=== PATIENT | female | born 1945 | race African-American/Black ===

== ENCOUNTER 2017-10-23 23:54 | Inpatient (IN) | payer MEDICARE, OTHER ==
[~2017-10-23] VITALS: Ht 160 cm; Wt 95.0 kg
[2017-10-24] VITALS (12 sets, daily range): BP systolic 85–150; BP diastolic 50–81
--- OUTSIDE RECORDS SUMMARY | 2017-10-24 00:34 | XMS REPORT ---
Author Author MYRON Ramsay Organization [facility] Address [address] [place] [address] Care Team Providers Care Mounter Name Role Phone MYRON Ramsay Unavailable PROBLEMS Unknown Problems ALLERGIES No Known Allergies ENCOUNTERS Encounter Location Date Diagnosis [place] [facility] [address] [facility] [id number] [id number] Mar, Nasal congestion R09.81 [place] [facility] [address] [facility] [id number] [place], [place] [id number] Jan, Screening for tuberculosis Z11.1 IMMUNIZATIONS Vaccine Route Administration Date Status DEPO MEDROL 80 MG/ML IM Intramuscular Apr 01, 2017 Administered SOCIAL HISTORY Never Assessed REASON FOR VISIT sinus issues PLAN OF CARE Activity Details Follow Up prn Reason: VITAL SIGNS Height 63 in 2017-04-01 Weight 196 lbs 2017-04-01 Temperature 97.9 degrees Fahrenheit 2017-04-01 Heart Rate 115 bpm 2017-04-01 Respiratory Rate 18 2017-04-01 BMI 34.72 kg/m2 2017-04-01 Blood pressure systolic 123 mmHg 2017-04-01 Blood pressure diastolic 61 mmHg 2017-04-01 MEDICATIONS Medication Instructions Dosage Frequency Start Date End Date Duration Status Trental Active Allopurinol Active RESULTS No Results PROCEDURES Procedure Date Ordered Result Body Site DEPO MEDROL 80 MG/ML Apr 01, 2017 THER/PROPH/DIAG INJ, SC/IM Apr 01, 2017 [facility] VISIT ESTABLISHED PATIENT Apr 01, 2017 INSTRUCTIONS MEDICATIONS ADMINISTERED No Known Medications
--- OUTSIDE RECORDS SUMMARY | 2017-10-24 00:34 | XMS REPORT ---
Author Author MYRON GRIFFIN Organization [facility] Address [address] [place] [address] Care Team Providers Care Cigarette Catcher Name Role Phone MYRON GRIFFIN Unavailable PROBLEMS Unknown Problems ALLERGIES No Information ENCOUNTERS Encounter Location Date Diagnosis [facility] [address] [facility] [id number] [phone] Mar, Nasal congestion R09.81 [facility] [address] [facility] [id number] [place], [place] [phone] Jan, Screening for tuberculosis Z11.1 IMMUNIZATIONS No Known Immunizations SOCIAL HISTORY Never Assessed REASON FOR VISIT TB skin test-[facility] PLAN OF CARE VITAL SIGNS MEDICATIONS No Known Medications RESULTS No Results PROCEDURES Procedure Date Ordered Result Body Site LAB NOT BILLED BY [facility] Jan 14, 2017 INSTRUCTIONS MEDICATIONS ADMINISTERED No Known Medications
[2017-10-24] MEDS ORDERED: ACETAMINOPHEN 500 MG TAB (TYLENOL) ONE (00:48)
[2017-10-24] MEDS ORDERED: NS IV 1000 ML 1,000 ML ONE (00:48)
[2017-10-24] MEDS ORDERED: ACETAMINOPHEN 500 MG TAB (TYLENOL) PO PRN ×2 (01:30→04:30)
[2017-10-24] MEDS ORDERED: cefTRIAXone FOR IV USE 1,000 MG in NS (IVPB) 50 ML IV ONE (01:30)
[2017-10-24] MEDS ORDERED: NS IV 1000 ML 2,000 ML IV ONE (01:30)
--- NOTE | 2017-10-24 01:33 | ED General ---
General Stated Complaint: COUGH, POSS UTI,FEVER Source of Information: Patient, Family Exam Limitations: No Limitations History of Present Illness Date Seen by Provider: Oct 24, 2017 Time Seen by Provider: 01:00 Initial Comments The patient presents to the ER by private conveyance with chief complaint she's been having since Tuesday, 2 days ago some tiredness weakness fatigue cough fevers subjectively chills and dark urine with dysuria. She says she's never had to be hospitalized before. She is not having any belly or chest pain. Little short of breath. She does not wear oxygen at baseline. She takes warfarin for history of atrial fibrillation. She was going to try and make it until tomorrow to see her doctor but her family was concerned about her and brought her out to the ER. She's been using Tylenol for her fever and chills but she has not had any today. She has spent most of her day in bed resting. Allergies and Home Medications Allergies Coded Allergies: No Known Drug Allergies (Unverified , 10/24/17) Patient Home Medication List Home Medication List Reviewed: Yes Review of Systems Review of Systems Constitutional: chills, diaphoresis, fever, malaise, weakness EENTM: No hearing loss, No ear pain Respiratory: cough; No phlegm; short of breath; No wheezing Cardiovascular: No chest pain, No edema, No Hx of Intervention, No palpitations , No syncope, No vascular heart diseas Gastrointestinal: No abdominal pain, No nausea, No vomiting Genitourinary: No discharge; dysuria : No Musculoskeletal: No back pain, No joint pain Skin: No pruritus, No rash Past Bnxlgum-Akdbwo-Qnvtrq Hx Patient Social History Alcohol Use: Denies Use Recreational Drug Use: No Smoking Status: Never a Smoker Recent Foreign Travel: No Contact w/Someone Who Travel: No Physical Exam-Suspected Sepsis Physical Exam Vital Signs Capillary Refill : Height, Weight, BMI Height: '" Weight: lbs. oz. kg; BMI Method: General Appearance: WD/WN, Mild Distress Eyes: Bilateral Eye Normal Inspection, Bilateral Eye PERRL, Bilateral Eye EOMI HEENT: PERRL/EOMI, Normal ENT Inspection, Pharynx Normal; No Moist Mucous Membranes (dry) Neck: Normal Inspection, Supple Respiratory: Chest Non Tender, Lungs Clear, Normal Breath Sounds, No Accessory Muscle Use, No Respiratory Distress Cardiovascular: Regular Rate, Rhythm, Normal Peripheral Pulses Gastrointestinal: Normal Bowel Sounds, Non Tender, Soft Extremity: Normal Capillary Refill, Normal Inspection, Normal Range of Motion, Non Tender, No Calf Tenderness, No Pedal Edema Neurologic/Psychiatric: Alert, Oriented x3, No Motor/Sensory Deficits, Normal Mood/Affect Skin: normal color, warm/dry Focused Exam Lactate Level 10/24/17 00:40: Lactic Acid Level 1.74 Lactic Acid Level Laboratory Tests Test 10/24/17 00:40 Lactic Acid Level 1.74 MMOL/L (0.50-2.00) Progress/Results/Core Measures Suspected Sepsis SIRS Temperature: Pulse: Respiratory Rate: Laboratory Tests 10/24/17 00:40: White Blood Count 23.4H Blood Pressure / Mean: 10/24/17 00:40: Lactic Acid Level 1.74 Laboratory Tests 10/24/17 00:40: Creatinine 1.87H, INR Comment 3.5H, Platelet Count 278, Total Bilirubin 1.6H Results/Orders Lab Results Laboratory Tests Test 10/24/17 00:40 Range/Units White Blood Count 23.4 H 4.3-11.0 10^3/uL Red Blood Count 4.82 4.35-5.85 10^6/uL Hemoglobin 13.7 11.5-16.0 G/DL Hematocrit 42 35-52 % Mean Corpuscular Volume 86 80-99 FL Mean Corpuscular Hemoglobin 28 25-34 PG Mean Corpuscular Hemoglobin Concent 33 32-36 G/DL Red Cell Distribution Width 15.4 H 10.0-14.5 % Platelet Count 278 130-400 10^3/uL Mean Platelet Volume 12.2 H 7.4-10.4 FL Neutrophils (%) (Auto) 77 H 42-75 % Lymphocytes (%) (Auto) 8 L 12-44 % Monocytes (%) (Auto) 14 H 0-12 % Eosinophils (%) (Auto) 1 0-10 % Basophils (%) (Auto) 0 0-10 % Neutrophils # (Auto) 18.1 H 1.8-7.8 X 10^3 Lymphocytes # (Auto) 1.8 1.0-4.0 X 10^3 Monocytes # (Auto) 3.4 H 0.0-1.0 X 10^3 Eosinophils # (Auto) 0.1 0.0-0.3 10^3/uL Basophils # (Auto) 0.1 0.0-0.1 10^3/uL Neutrophils % (Manual) 56 % Lymphocytes % (Manual) 16 % Monocytes % (Manual) 7 % Band Neutrophils 21 % Toxic Granulation 1+ Blood Morphology Comment NORMAL Prothrombin Time 35.1 H 12.2-14.7 SEC INR Comment 3.5 H 0.8-1.4 Activated Partial Thromboplast Time 50 H 24-35 SEC Urine Color YELLOW Urine Clarity VERY CLOUDY H Urine pH 5 5-9 Urine Specific Victoria 1.020 1.016-1.022 Urine Protein 2+ H NEGATIVE Urine Glucose (UA) NEGATIVE NEGATIVE Urine Ketones 1+ H NEGATIVE Urine Nitrite NEGATIVE NEGATIVE Urine Bilirubin 2+ H NEGATIVE Urine Urobilinogen 12 H NORMAL MG/DL Urine Leukocyte Esterase 3+ H NEGATIVE Urine RBC (Auto) 1+ H NEGATIVE Urine RBC NONE /HPF Urine WBC 2-5 /HPF Urine Squamous Epithelial Cells 5-10 /HPF Urine Crystals PRESENT H /LPF Urine Amorphous Sediment FEW LAURY URATES H /LPF Urine Bacteria MODERATE H /HPF Urine Casts NONE /LPF Urine Mucus MODERATE H /LPF Urine Culture Indicated NO Sodium Level 137 135-145 MMOL/L Potassium Level 3.4 L 3.6-5.0 MMOL/L Chloride Level 99 98-107 MMOL/L Carbon Dioxide Level 24 21-32 MMOL/L Anion Gap 14 5-14 MMOL/L Blood Urea Nitrogen 37 H 7-18 MG/DL Creatinine 1.87 H 0.60-1.30 MG/DL Estimat Glomerular Filtration Rate 32 BUN/Creatinine Ratio 20 Glucose Level 137 H 70-105 MG/DL Lactic Acid Level 1.74 0.50-2.00 MMOL/L Calcium Level 10.5 H 8.5-10.1 MG/DL Corrected Calcium 10.9 H 8.5-10.1 MG/DL Total Bilirubin 1.6 H 0.1-1.0 MG/DL Aspartate Amino Transf (AST/SGOT) 24 5-34 U/L Alanine Aminotransferase (ALT/SGPT) 18 0-55 U/L Alkaline Phosphatase 132 40-136 U/L Total Protein 8.8 H 6.4-8.2 GM/DL Albumin 3.5 3.2-4.5 GM/DL My Orders Orders - DANNY,HERMAN J Ns Iv 1000 Ml (Sodium Chloride 0.9%) (10/24/17 00:48) Acetaminophen Tablet (Tylenol Tablet) (10/24/17 00:48) Cbc With Automated Diff (10/24/1723) Comprehensive Metabolic Panel (10/24/17) Blood Culture (10/24/17:23) Sputum Culture (10/24/17:23) Urinalysis (10/24/17) Urine Culture (10/24/17) Protime With Inr (10/24/17) Partial Thromboplastin Time (10/24/17:23) Acetaminophen Tablet (Tylenol Tablet) (10/24/17 01:30) Saline Lock/Iv-Start (10/24/17) Saline Lock/Iv-Start (10/24/1723) Ekg Tracing (10/24/17) Vital Signs Adult Sepsis Patie Q15M (10/24/17:23) O2 (10/24/17:23) Remove Rings In Anticipation O (10/24/17:) Lactic Acid Analyzer (10/24/17:23) Ns Iv 1000 Ml (Sodium Chloride 0.9%) (10/24/17 01:30) Ceftriaxone For Iv Use (Rocephin For I (10/24/17 01:30) Manual Differential (10/24/17 00:40) Chest Pa/Lat (2 View) (10/24/17 02:04) Medications Given in ED Current Medications Medications Dose Ordered Sig/Sarbjit Route Start Time Stop Time Status Last Admin Dose Admin Acetaminophen 1,000 mg ONCE PRN PO 10/24/17 01:30 10/24/17 01:57 DC 10/24/17 00:45 1,000 MG Ceftriaxone Sodium 1000 mg/ Sodium Chloride 60 ml @ 100 mls/hr ONCE ONCE IV 10/24/17 01:30 10/24/17 02:05 DC 10/24/17 02:00 100 MLS/HR Sodium Chloride 2,000 ml @ 2,000 mls/hr ONCE ONCE IV 10/24/17 01:30 10/24/17 02:29 DC 10/24/17 00:45 2,000 MLS/HR Vital Signs/I&O Capillary Refill : Progress Note : Time: 01:32 Progress Note Sepsis workup with Rocephin and 2 L normal saline. We'll give her Tylenol for her fever. We'll get a 2 view chest x-ray several 1 view. ECG Initial ECG Impression Date: Oct 24, 2017 Initial ECG Impression Time: 00:48 Initial ECG Rate: 130 Initial ECG Rhythm: S.Tach Initial ECG Intervals: Normal Initial ECG Impression: Normal, Nonspecific Changes Initial ECG Comparisson: No Previous ECG Available Comment No ST elevation or depression. Sinus tachycardia. Diagnostic Imaging Diagonstic Imaging: Xray Plain Films/CT/US/NM/MRI: chest (2v) Comments Right middle lobe infiltrate seen. Reviewed: Reviewed by Me Departure Communication (Admissions) Time/Spoke to Admitting Phy: 03:00 Discussed case lab imaging findings with Dr. Wilson and she agrees see the patient. She agrees with Rocephin and azithromycin. Impression Primary Impression: Pneumonia Qualified Codes: J18.9 - Pneumonia, unspecified organism Additional Impressions: Sepsis Qualified Codes: A41.9 - Sepsis, unspecified organism Supratherapeutic INR VERN (acute kidney injury) Disposition: 09 ADMITTED INPATIENT Condition: Stable Admissions Decision to Admit Reason: Admit from ER (General) Decision to Admit/Date: Oct 24, 2017 Time/Decision to Admit Time: 02:51 Departure-Patient Inst. Referrals: SHARON JEAN MD (PCP/Family) Primary Care Physician Copy Copies To 1: SHARON JEAN MD, TITUS J Oct 24, 2017 01:33
[2017-10-24 01:34] LABS: BASOPHILS # (AUTO) 0.1 10^3/uL (0.0-0.1); BASOPHILS % (AUTO) 0 % (0-10); EOSINOPHILS # (AUTO) 0.1 10^3/uL (0.0-0.3); EOSINOPHILS % (AUTO) 1 % (0-10); HEMATOCRIT 42 % (35-52); HEMOGLOBIN 13.7 G/DL (11.5-16.0); LYMPHOCYTES # (AUTO) 1.8 X 10^3 (1.0-4.0); LYMPHOCYTES % (AUTO) 8 % (12-44); MEAN CORPUSCULAR HEMOGLOBIN 28 PG (25-34); MEAN CORPUSCULAR HGB CONC 33 G/DL (32-36); MEAN CORPUSCULAR VOLUME 86 FL (80-99); MEAN PLATELET VOLUME 12.2 FL (7.4-10.4); MONOCYTES # (AUTO) 3.4 X 10^3 (0.0-1.0); MONOCYTES % (AUTO) 14 % (0-12); NEUTROPHILS # (AUTO) 18.1 X 10^3 (1.8-7.8); NEUTROPHILS % (AUTO) 77 % (42-75); PLATELET COUNT 278 10^3/uL (130-400); RED BLOOD COUNT 4.82 10^6/uL (4.35-5.85); RED CELL DISTRIBUTION WIDTH 15.4 % (10.0-14.5); WHITE BLOOD COUNT 23.4 10^3/uL (4.3-11.0)
[2017-10-24 01:36] LABS: CLARITY,URINE VERY CLOUDY; COLOR,URINE YELLOW; GLUCOSE, URINE (UA) NEGATIVE (NEGATIVE); KETONES,URINE 1+ (NEGATIVE); LEUKOCYTE ESTERASE ,URINE 3+ (NEGATIVE); NITRITE,URINE NEGATIVE (NEGATIVE); PH,URINE 5 (5-9); PROTEIN,URINE 2+ (NEGATIVE); UROBILINOGEN,URINE 12 MG/DL (NORMAL)
[2017-10-24 01:42] LABS: INR 3.5 (0.8-1.4); PROTHROMBIN TIME PATIENT 35.1 SEC (12.2-14.7)
[2017-10-24 01:45] LABS: ALBUMIN 3.5 GM/DL (3.2-4.5); BILIRUBIN,TOTAL 1.6 MG/DL (0.1-1.0); CALCIUM 10.5 MG/DL (8.5-10.1); CREATININE SERUM 1.87 MG/DL (0.60-1.30); POTASSIUM 3.4 MMOL/L (3.6-5.0); TOTAL PROTEIN 8.8 GM/DL (6.4-8.2)
[2017-10-24 01:57] LABS: AMORPHOUS SEDIMENT,UR FEW AMOR URATES /LPF; BACTERIA,URINE MODERATE /HPF; BILIRUBIN,URINE 2+ (NEGATIVE)
[2017-10-24 02:03] LABS: BAND NEUTROPHILS 21 %; LYMPHOCYTES % (MANUAL) 16 %; MONOCYTES % (MANUAL) 7 %; NEUTROPHILS % (MANUAL) 56 %; RBC MORPH NORMAL; TOXIC GRANULATION/VACUOLAZATIO 1+
[2017-10-24] MEDS ORDERED: NS W/KCL 40 MEQ/L 1,000 ML IV ONE (04:03)
[2017-10-24] MEDS ORDERED: AZITHROMYCIN 500 MG/NS 250 ML IVPB IV ONE ×2 (04:30)
[2017-10-24] MEDS ORDERED: CATHETER FLUSH 10 ML SYR IV PRN (04:30)
[2017-10-24] MEDS ORDERED: ONDANSETRON 4 MG/2 ML (SDV) Z0FRAN IV PRN (04:30)
[2017-10-24] MEDS: NS W/KCL 40 MEQ/L 1,000 ML IV SCH ×3 (04:41→10:29)
[2017-10-24] MEDS: CATHETER FLUSH 10 ML SYR IV SCH ×3 (04:43→19:26)
--- NOTE | 2017-10-24 07:13 | Diagnostic Imaging Report ---
Clinical indication: Patient with cough and congestion. Exam: Chest x-ray PA and lateral views. Comparisons: None. Findings: Lungs/pleura: There is patchy areas of infiltrate seen throughout both lungs with the right upper lung field affected the most. There is also lung infiltrate in the left lung base region. There is no pneumothorax. There is no pleural effusion. Mediastinum: Unremarkable. Pulmonary vasculature: Unremarkable. Heart: Unremarkable. Bones/extrathoracic soft tissue: There are hypertrophic spurs involving the thoracic spine. Impression: Concern for bilateral lung infiltrate/pneumonia (right side more than the left). Superimposed/background lung scarring can't be completely excluded. Follow up chest x-ray in 2 - 4 weeks is suggested to evaluate for interval resolution of this finding. Dictated by: Dictated on workstation # [id number]
[2017-10-24] MEDS ORDERED: AMIL1TAB PO (07:31)
[2017-10-24] MEDS ORDERED: ALLO100T PO (07:31)
[2017-10-24] MEDS ORDERED: PENT400T9 PO ×2 (07:31→11:32)
[2017-10-24] MEDS ORDERED: WARF6TAB49 PO (07:31)
--- NOTE | 2017-10-24 09:45 | Progress Note-Hospitalist ---
Subjective HPI/CC On Admission Date Seen by Provider: Oct 24, 2017 Time Seen by Provider: 09:38 Subjective/Events-last exam Pt is a 72yoCF with a PMH of HTN and PE on chronic anticoagulation who presented to the ER with CC of fever, chills, and feeling poorly. She states her symptoms started the evening of 10/20. 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 During that game she started to feel worse so left very quickly and was in bed most of the next two days with poor appetite, fever, and fatigue. She also noticed that her urine was off color. She continued to feel worse so her brother prompted her to seek evaluation in the ER. She was found to have bilateral pneumonia and meet sepsis criteria so was admitted for IV abx. Focused Exam Lactate Level 10/24/17 00:40: Lactic Acid Level 1.74 Objective Exam Vital Signs Vital Signs Date Time Temp Pulse Resp B/P (MAP) Pulse Ox O2 Delivery O2 Flow Rate FiO2 10/24/17 08:00 96.8 111 22 119/64 (82) 97 Nasal Cannula 4.00 10/24/17 04:20 28 Capillary Refill : Less Than 3 Seconds General Appearance: No Apparent Distress, WD/WN Respiratory: Lungs Clear, No Respiratory Distress Cardiovascular: Regular Rate, Rhythm, No Murmur Gastrointestinal: Normal Bowel Sounds, Non Tender, Soft Neurologic/Psychiatric: Alert, Oriented x3 Results/Procedures Lab Laboratory Tests 10/24/17 00:40 Patient resulted labs reviewed. Assessment/Plan Assessment and Plan Assess & Plan/Chief Complaint Sepsis Diagnosis/Problems Diagnosis/Problems (1) Sepsis Status: Acute Assessment & Plan: Bilateral pneumonia Continue on CAP coverage Titrate oxygen to keep sats >90% Cultures pending Qualifiers: Sepsis type: sepsis due to unspecified organism Qualified Codes: A41.9 - Sepsis, unspecified organism (2) Pneumonia Status: Acute Assessment & Plan: Antitbiotics as above CURB 65 score of 3 Qualifiers: Pneumonia type: due to unspecified organism Laterality: unspecified laterality Lung location: unspecified part of lung Qualified Codes: J18.9 - Pneumonia, unspecified organism (3) VERN (acute kidney injury) Status: Acute Assessment & Plan: Unsure of baseline Continue IVF (4) Supratherapeutic INR Status: Acute Assessment & Plan: On for history of PE Slightly above goal Hold home warfarin today Recheck INR in am (5) Essential (primary) hypertension Assessment & Plan: Hold home meds as BP well controlled Clinical Quality Measures DVT/VTE Risk/Contraindication: Risk Factor Score Per Nursin RFS Level Per Nursing on Admit: 4+=Very High TABITHA FLORES MD Oct 24, 2017 9:45 am
--- NOTE | 2017-10-24 09:51 | History & Physical-Hospitalist ---
History of Present Illness HPI/Chief Complaint Pt is a 72yoCF with a PMH of HTN and PE on chronic anticoagulation who presented to the ER with CC of fever, chills, and feeling poorly. She states her symptoms started the evening of 10/20. 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 During that game she started to feel worse so left very quickly and was in bed most of the next two days with poor appetite, fever, and fatigue. She also noticed that her urine was off color. She continued to feel worse so her brother prompted her to seek evaluation in the ER. She was found to have bilateral pneumonia and meet sepsis criteria so was admitted for IV abx. Source: patient Date Seen 10/24/17 Time Seen by Provider: 09:50 Attending Physician Eulalia Wilson MD PCP Ian Davalos MD Referring Physician Date of Admission Oct 24, 2017 at 3:30 am Home Medications & Allergies Home Medications Reviewed patient Home Medication Reconciliation performed by pharmacy medication reconciliations oil bay technician and/or nursing. Patients Allergies have been reviewed. Allergies Allergies Coded Allergies aspirin (Verified Adverse Reaction, Unknown, 10/24/17) States won't take it as is on warfarin Past Myyzeho-Rzeacu-Kofelm Hx Past Med/Social Hx: Reviewed Nursing Past Med/Soc Hx Patient Social History Alcohol Use: Denies Use Recreational Drug Use: No Smoking Status: Never a Smoker Physical Abuse Screen: No Sexual Abuse: No Recent Foreign Travel: No Contact w/other who traveled: No Recent Hopitalizations: No Recent Infectious Disease Expo: No Seasonal Allergies Seasonal Allergies: Yes Past Medical History Genitourinary: UTI-Chronic Gastrointestinal: Abdominal Hernia Musculoskeletal: Gout History of Blood Disorders: Yes (Anemia after hysterectomy) Adverse Reaction to Blood Pérez: No Family History Asthma 19 MOTHER Dementia 19 MOTHER Diabetes mellitus 19 MOTHER G8 BROTHER FH: bladder cancer 19 MOTHER FH: prostate cancer G8 BROTHER FH: stroke 19 MOTHER Glaucoma 19 MOTHER Hypertension 19 MOTHER G8 BROTHER Kidney disease G8 BROTHER Myocardial infarction 19 MOTHER G8 BROTHER Review of Systems Constitutional: chills, diaphoresis, fever, malaise EENTM: no symptoms reported Respiratory: see HPI, cough, short of breath Cardiovascular: no symptoms reported Gastrointestinal: no symptoms reported Genitourinary: see HPI; No dysuria Musculoskeletal: no symptoms reported Skin: no symptoms reported Psychiatric/Neurological: No Symptoms Reported Physical Exam Physical Exam Vital Signs Vital Signs - First Documented 10/24/17 10/24/17 10/24/17 00:30 00:35 04:20 Temp 100.0 Pulse 132 Resp 30 B/P (MAP) 123/93 (103) Pulse Ox 88 O2 Delivery Room Air O2 Flow Rate 2.00 FiO2 28 Capillary Refill : Less Than 3 Seconds Height, Weight, BMI Height: 5'3.00" Weight: 209lbs. 8.0oz. 95.044395pg; 37.1 BMI Method:Stated General Appearance: No Apparent Distress, WD/WN HEENT: PERRL/EOMI, Moist Mucous Membranes Neck: Non Tender, Supple Respiratory: No Respiratory Distress, Wheezing Cardiovascular: Regular Rate, Rhythm, No Murmur Gastrointestinal: Normal Bowel Sounds, Non Tender, Soft Extremity: Normal Capillary Refill, No Calf Tenderness Neurologic/Psychiatric: Alert, Oriented x3, Normal Mood/Affect Skin: Normal Color, Warm/Dry Results Results/Procedures Labs Laboratory Tests 10/24/17 00:40 10/25/17 06:35 Patient resulted labs reviewed. Imaging: Reviewed Imaging Report Assessment/Plan Admission Diagnosis Sepsis and CAP Admission Status: Inpatient Order (span 2 midnights) Reason for Inpatient Admission: CURB 65 score of 3, needs IV antibiotics Assessment and Plan Sepsis Diagnosis/Problems Diagnosis/Problems (1) Sepsis Status: Acute Assessment & Plan: Bilateral pneumonia Continue on CAP coverage Titrate oxygen to keep sats >90% Cultures pending Qualifiers: Sepsis type: sepsis due to unspecified organism Qualified Codes: A41.9 - Sepsis, unspecified organism (2) Pneumonia Status: Acute Assessment & Plan: Antitbiotics as above CURB 65 score of 3 Qualifiers: Pneumonia type: due to unspecified organism Laterality: unspecified laterality Lung location: unspecified part of lung Qualified Codes: J18.9 - Pneumonia, unspecified organism (3) VERN (acute kidney injury) Status: Acute Assessment & Plan: Unsure of baseline Continue IVF (4) Supratherapeutic INR Status: Acute Assessment & Plan: On for history of PE Slightly above goal Hold home warfarin today Recheck INR in am (5) Essential (primary) hypertension Assessment & Plan: Hold home meds as BP well controlled Clinical Quality Measures DVT/VTE Risk/Contraindication: Risk Factor Score Per Nursin RFS Level Per Nursing on Admit: 4+=Very High TABITHA FLORES MD Oct 24, 2017 09:51
[2017-10-24] MEDS ORDERED: ACET-2267 PO (11:32)
[2017-10-24] MEDS ORDERED: CETI1TAB61 PO (11:32)
[2017-10-24] MEDS ORDERED: PSEUDOEPHEDRINE PO PRN (15:00)
[2017-10-24] MEDS ORDERED: [UNRECOGNIZED DRUG - OTHER] PO PRN (15:00)
[2017-10-24] MEDS ORDERED: CETIRIZINE HCL PO PRN (15:00)
[2017-10-24] MEDS: BENZONATATE 100 MG (TESSALON) CAPSULE PO PRN (15:11)
[2017-10-24] MEDS ORDERED: PSEUDOEPHEDRINE HCL 30 MG (SUDAFED) TAB PO PRN (15:30)
[2017-10-24] MEDS ORDERED: LORATADINE (CLARITIN) 10 MG TAB PO PRN ×2 (15:30→15:45)
[2017-10-24] MEDS ORDERED: NON-FORMULARY MEDICATION 1 EA EA (Warfarin Sodium 6 MG) PO SCH (18:00)
[2017-10-24] MEDS ORDERED: warFARin 3 MG (COUMADIN) TAB PO SCH (18:00)
[2017-10-24] MEDS: PENTOXIFYLLINE ER 400 MG (TRENtal) TAB PO SCH (19:25)
[2017-10-24] MEDS: RT-ALBUTEROL SULF 2.5 MG/3 ML PRE-MIX VIAL INH PRN (22:24)
[2017-10-25 00:30] VITALS: BP 114/65
[2017-10-25] MEDS: cefTRIAXone 1 GM/NS 50 ML IVPB IV SCH ×2 (02:10)
[2017-10-25] MEDS: NS W/KCL 40 MEQ/L 1,000 ML IV SCH ×2 (03:04→06:05)
[2017-10-25 04:00] VITALS: BP 135/80
[2017-10-25] MEDS: CATHETER FLUSH 10 ML SYR IV SCH ×3 (04:11→21:10)
[2017-10-25] MEDS: BENZONATATE 100 MG (TESSALON) CAPSULE PO PRN (06:03)
[2017-10-25 06:58] LABS: BASOPHILS # (AUTO) 0.1 10^3/uL (0.0-0.1); BASOPHILS % (AUTO) 1 % (0-10); EOSINOPHILS # (AUTO) 0.4 10^3/uL (0.0-0.3); EOSINOPHILS % (AUTO) 2 % (0-10); HEMATOCRIT 35 % (35-52); HEMOGLOBIN 11.7 G/DL (11.5-16.0); LYMPHOCYTES % (AUTO) 11 % (12-44); MEAN CORPUSCULAR HEMOGLOBIN 29 PG (25-34); MEAN CORPUSCULAR HGB CONC 33 G/DL (32-36); MEAN CORPUSCULAR VOLUME 87 FL (80-99); MONOCYTES # (AUTO) 1.8 X 10^3 (0.0-1.0); MONOCYTES % (AUTO) 10 % (0-12); NEUTROPHILS # (AUTO) 13.6 X 10^3 (1.8-7.8); NEUTROPHILS % (AUTO) 76 % (42-75); PLATELET COUNT 236 10^3/uL (130-400); RED BLOOD COUNT 4.05 10^6/uL (4.35-5.85); RED CELL DISTRIBUTION WIDTH 15.2 % (10.0-14.5)
[2017-10-25 07:19] LABS: BUN/CREATININE RATIO 25; CALCIUM 9.7 MG/DL (8.5-10.1); CARBON DIOXIDE 20 MMOL/L (21-32); CHLORIDE 111 MMOL/L (98-107); CREATININE SERUM 1.06 MG/DL (0.60-1.30); GFR ESTIMATED > 60; GLUCOSE 95 MG/DL (70-105); POTASSIUM 4.5 MMOL/L (3.6-5.0); SODIUM 140 MMOL/L (135-145)
[2017-10-25 08:00] VITALS: BP 140/78
[2017-10-25] MEDS: RT-ALBUTEROL SULF 2.5 MG/3 ML PRE-MIX VIAL INH PRN (08:05)
[2017-10-25] MEDS ORDERED: NON-FORMULARY MEDICATION 1 EA EA (Allopurinol 100 MG) PO SCH (09:00)
[2017-10-25] MEDS: AZITHROMYCIN 250 MG TAB (ZITHROMAX) PO SCH (09:24)
[2017-10-25] MEDS: PENTOXIFYLLINE ER 400 MG (TRENtal) TAB PO SCH ×2 (09:24→21:10)
[2017-10-25] MEDS: ALLOPURINOL 100 MG (ZYLOPRIM) TAB PO SCH (09:24)
--- NOTE | 2017-10-25 10:09 | Progress Note-Hospitalist ---
Subjective HPI/CC On Admission Date Seen by Provider: Oct 25, 2017 Time Seen by Provider: 09:00 Pt is a 72yoCF with a PMH of HTN and PE on chronic anticoagulation who presented to the ER with CC of fever, chills, and feeling poorly. She states her symptoms started the evening of 10/20. 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 During that game she started to feel worse so left very quickly and was in bed most of the next two days with poor appetite, fever, and fatigue. She also noticed that her urine was off color. She continued to feel worse so her brother prompted her to seek evaluation in the ER. She was found to have bilateral pneumonia and meet sepsis criteria so was admitted for IV abx. Subjective/Events-last exam Patient didn't sleep well secondary to coughing but actually feels little bit better today compared to yesterday. She denies night sweats chills fever or Reiger's. She reports little bit of right-sided chest pain when she coughs bringing up a scant amount of yellowish sputum especially after breathing treatments. She's had no shortness of breath at rest and denies any abdominal pain or change in bowel habit. She's had no melena. Focused Exam Lactate Level 10/24/17 00:40: Lactic Acid Level 1.74 Objective Exam Vital Signs Vital Signs Date Time Temp Pulse Resp B/P (MAP) Pulse Ox O2 Delivery O2 Flow Rate FiO2 10/25/17 08:06 99 Nasal Cannula 2.00 10/25/17 04:00 96.7 111 20 135/80 (98) 10/24/17 04:20 28 Capillary Refill : Less Than 3 Seconds General Appearance: No Apparent Distress, Obese Respiratory: Chest Non Tender, No Accessory Muscle Use, No Respiratory Distress , Other (No wheezing noted patient does have by basilar rales in the right upper lung field rales with fascicular breath sounds) Cardiovascular: No Edema, No Gallop, No Murmur, Irregularly Irregular Gastrointestinal: Normal Bowel Sounds, No Organomegaly, No Pulsatile Mass, Non Tender, Soft Extremity: Normal Capillary Refill, Normal Inspection, Normal Range of Motion, Non Tender, No Calf Tenderness, No Pedal Edema Results/Procedures Lab Laboratory Tests 10/25/17 06:35 Patient resulted labs reviewed. Imaging: Reviewed Imaging Report Assessment/Plan Assessment and Plan Assess & Plan/Chief Complaint 1. Bilateral community-acquired pneumonia. The patient is clinically improving with decreased white count remains afebrile. Due to frequent coughing will add Robitussin-DM on a when necessary basis to Tessalon and continue Rocephin and azithromycin. 2. Irregularly irregular rhythm no reports of atrial fibrillation in the past will need to fine emergency room EKG. If this does not document atrial fibrillation we'll repeat EKG. Patient started on anticoagulation due to past history of DVT and PE with an INR 3.5. We will hold Coumadin today and repeat her INR in the morning. 3. Hypertension currently blood pressures have been initially low normal last blood pressure 140/70 at this time will not resume diuretic therapy due to acute kidney injury but instead initiate diltiazem for rate control as current heart rate heparin only been in the 110-120 beat per minute range. When coughing settles down and the next day or 2 we'll obtain echocardiography. 4. Acute kidney injury secondary to infection with sepsis and secondary dehydration significantly improved creatinine down from the 1.8 range to around 1 she is prone to edema we'll DC IV fluids and her current bag runs and. Critical Care Critical Care: Critically Ill Patient Clinical Quality Measures DVT/VTE Risk/Contraindication: Risk Factor Score Per Nursin RFS Level Per Nursing on Admit: 4+=Very High SHARON JEAN MD Oct 25, 2017 10:08
[2017-10-25] MEDS ORDERED: DILTIAZEM 180 MG (CARDIZEM CD) CAP PO NR (10:15)
[2017-10-25] MEDS: guaiFENesin/DM (ROBITUSSIN DM) 10 ML UDC PO PRN (10:59)
[2017-10-25 12:00] VITALS: BP 133/80
[2017-10-25 15:57] VITALS: BP 142/84
[2017-10-25 19:29] VITALS: BP 153/84
[2017-10-26] VITALS: BP 126/72
[2017-10-26] MEDS: cefTRIAXone 1 GM/NS 50 ML IVPB IV SCH ×2 (01:33)
[2017-10-26] MEDS: guaiFENesin/DM (ROBITUSSIN DM) 10 ML UDC PO PRN ×4 (03:03→22:34)
[2017-10-26] MEDS: CATHETER FLUSH 10 ML SYR IV SCH ×3 (06:26→22:10)
[2017-10-26 08:03] LABS: PROTHROMBIN TIME PATIENT 46.1 SEC (12.2-14.7)
[2017-10-26 08:04] LABS: INR 4.9 (0.8-1.4)
[2017-10-26 08:23] VITALS: BP 124/67
[2017-10-26] MEDS: ALLOPURINOL 100 MG (ZYLOPRIM) TAB PO SCH (08:25)
[2017-10-26] MEDS: AZITHROMYCIN 250 MG TAB (ZITHROMAX) PO SCH (08:25)
[2017-10-26] MEDS: PENTOXIFYLLINE ER 400 MG (TRENtal) TAB PO SCH ×2 (08:25→20:43)
[2017-10-26] MEDS: DILTIAZEM 180 MG (CARDIZEM CD) CAP PO SCH (08:25)
--- NOTE | 2017-10-26 08:39 | Progress Note-Hospitalist ---
Subjective HPI/CC On Admission Date Seen by Provider: Oct 26, 2017 Time Seen by Provider: 08:00 Pt is a 72yoCF with a PMH of HTN and PE on chronic anticoagulation who presented to the ER with CC of fever, chills, and feeling poorly. She states her symptoms started the evening of 10/20. 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 During that game she started to feel worse so left very quickly and was in bed most of the next two days with poor appetite, fever, and fatigue. She also noticed that her urine was off color. She continued to feel worse so her brother prompted her to seek evaluation in the ER. She was found to have bilateral pneumonia and meet sepsis criteria so was admitted for IV abx. Subjective/Events-last exam Patient reports feeling better this morning. She slept well and feels that she has more energy. Cough is diminished she reports that Robitussin-DM is helping. She denies chest pain but still notes some wheezing. Cough she reports is productive of greenish sputum only no evidence for blood. Focused Exam Lactate Level 10/24/17 00:40: Lactic Acid Level 1.74 Objective Exam Vital Signs Vital Signs Date Time Temp Pulse Resp B/P (MAP) Pulse Ox O2 Delivery O2 Flow Rate FiO2 10/26/17 00:00 99.2 107 20 126/72 (90) 98 Nasal Cannula 2.00 10/24/17 04:20 28 Capillary Refill : Less Than 3 Seconds General Appearance: No Apparent Distress Respiratory: Chest Non Tender, No Accessory Muscle Use, No Respiratory Distress , Other (Mild expiratory wheezing throughout rales in the bases in the right upper lobe with fascicular breath sounds especially noted in the right upper lobe stable compared to yesterday.) Cardiovascular: Regular Rate, Rhythm, No Edema, No Gallop, No JVD, No Murmur, Normal Peripheral Pulses Gastrointestinal: Normal Bowel Sounds, No Organomegaly, No Pulsatile Mass, Non Tender, Soft Extremity: Normal Inspection, Normal Range of Motion, Non Tender, No Calf Tenderness, No Pedal Edema Results/Procedures Lab Patient resulted labs reviewed. Imaging: Reviewed Imaging Report Assessment/Plan Assessment and Plan Assess & Plan/Chief Complaint 1. Bilateral community-acquired pneumonia. The patient is clinically improving with decreased white count remains afebrile. One son comes oxygen we' ll have the patient ambulate. 2. Osmole atrial fibrillation yesterday has resolved heart rate is low or and rhythm is regular today. EKGs reviewed from emergency room reveals sinus tachycardia. 3. Hypertension pressures tending low or on diltiazem with regular rhythm. 4. Acute kidney injury secondary to infection with sepsis and secondary dehydration resolved. 5. Treated DVT possible paroxysmal fibrillation INR level IV.9 today despite holding Coumadin yesterday. We'll continue to hold Coumadin and have the patient consume several servings of greens today. Repeat INR in the morning. Critical Care Critical Care: Critically Ill Patient Clinical Quality Measures DVT/VTE Risk/Contraindication: Risk Factor Score Per Nursin RFS Level Per Nursing on Admit: 4+=Very High SHARON JEAN MD Oct 26, 2017 08:39
[2017-10-26] MEDS: RT-ALBUTEROL SULF 2.5 MG/3 ML PRE-MIX VIAL INH PRN (11:49)
[2017-10-26 16:05] VITALS: BP 134/68
[2017-10-26] MEDS ORDERED: RT-ALBUTEROL/IPRATROPIUM 3 ML (DUONEB) VIAL ONE (18:42)
[2017-10-27 00:30] VITALS: BP 139/75
[2017-10-27] MEDS: cefTRIAXone 1 GM/NS 50 ML IVPB IV SCH ×2 (01:46)
[2017-10-27] MEDS: CATHETER FLUSH 10 ML SYR IV SCH ×3 (06:21→19:19)
[2017-10-27] MEDS: RT-ALBUTEROL/IPRATROPIUM 3 ML (DUONEB) VIAL INH SCH ×4 (07:55→19:41)
[2017-10-27 08:00] VITALS: BP 124/70
--- NOTE | 2017-10-27 08:38 | Progress Note-Hospitalist ---
Subjective HPI/CC On Admission Date Seen by Provider: Oct 27, 2017 Time Seen by Provider: 08:00 Pt is a 72yoCF with a PMH of HTN and PE on chronic anticoagulation who presented to the ER with CC of fever, chills, and feeling poorly. She states her symptoms started the evening of 10/20. 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 During that game she started to feel worse so left very quickly and was in bed most of the next two days with poor appetite, fever, and fatigue. She also noticed that her urine was off color. She continued to feel worse so her brother prompted her to seek evaluation in the ER. She was found to have bilateral pneumonia and meet sepsis criteria so was admitted for IV abx. Subjective/Events-last exam Feeling beeter decreased cough and improved appetite with decreased sputem production. Objective Exam Vital Signs Vital Signs Date Time Temp Pulse Resp B/P (MAP) Pulse Ox O2 Delivery O2 Flow Rate FiO2 10/27/17 00:30 98.4 100 17 139/75 (96) 94 Nasal Cannula 2.00 10/26/17 15:51 28 Capillary Refill : Less Than 3 Seconds General Appearance: No Apparent Distress, Obese Respiratory: Chest Non Tender, No Accessory Muscle Use, No Respiratory Distress , Other (no wheezing with decreased congestion in bases and RUL) Results/Procedures Lab Patient resulted labs reviewed. Imaging: Reviewed Imaging Report Assessment/Plan Assessment and Plan Assess & Plan/Chief Complaint 1. Bilateral community-acquired pneumonia. The patient is clinically improving with decreased white count remains afebrile. ambulation encouraged . 2. Possible atrial fibrillation yesterday has resolved heart rate is regular today. EKGs reviewed from emergency room reveals sinus tachycardia. 3. Hypertension pressures tending low or on diltiazem with regular rhythm. 4. Acute kidney injury secondary to infection with sepsis and secondary dehydration resolved. 5. Treated DVT possible paroxysmal fibrillation INR level 4.9 today despite holding Coumadin yesterday. We'll continue to hold Coumadin and have the patient consume several servings of greens today. INR pending Critical Care Critical Care: Critically Ill Patient Clinical Quality Measures DVT/VTE Risk/Contraindication: Risk Factor Score Per Nursin RFS Level Per Nursing on Admit: 4+=Very High SHARON JEAN MD Oct 27, 2017 08:38
[2017-10-27] MEDS: guaiFENesin/DM (ROBITUSSIN DM) 10 ML UDC PO PRN ×3 (09:02→22:10)
[2017-10-27] MEDS: ALLOPURINOL 100 MG (ZYLOPRIM) TAB PO SCH (09:02)
[2017-10-27] MEDS: PENTOXIFYLLINE ER 400 MG (TRENtal) TAB PO SCH ×2 (09:02→19:18)
[2017-10-27] MEDS: AZITHROMYCIN 250 MG TAB (ZITHROMAX) PO SCH (09:02)
[2017-10-27] MEDS: DILTIAZEM 180 MG (CARDIZEM CD) CAP PO SCH (09:02)
[2017-10-27 09:07] LABS: INR 4.5 (0.8-1.4); PROTHROMBIN TIME PATIENT 43.1 SEC (12.2-14.7)
[2017-10-27 15:55] VITALS: BP 120/61
[2017-10-28 00:24] VITALS: BP 125/65
[2017-10-28] MEDS: cefTRIAXone 1 GM/NS 50 ML IVPB IV SCH ×2 (01:53)
[2017-10-28] MEDS: CATHETER FLUSH 10 ML SYR IV SCH ×2 (05:03→14:38)
[2017-10-28] MEDS: RT-ALBUTEROL/IPRATROPIUM 3 ML (DUONEB) VIAL INH SCH (06:36)
[2017-10-28 08:00] VITALS: BP 117/58
[2017-10-28] MEDS: PENTOXIFYLLINE ER 400 MG (TRENtal) TAB PO SCH ×2 (08:06→20:09)
[2017-10-28] MEDS: DILTIAZEM 180 MG (CARDIZEM CD) CAP PO SCH (08:06)
[2017-10-28] MEDS: ALLOPURINOL 100 MG (ZYLOPRIM) TAB PO SCH (08:06)
[2017-10-28] MEDS: AZITHROMYCIN 250 MG TAB (ZITHROMAX) PO SCH (08:06)
[2017-10-28] MEDS: guaiFENesin/DM (ROBITUSSIN DM) 10 ML UDC PO PRN (08:14)
[2017-10-28 09:13] LABS: INR 4.1 (0.8-1.4); PROTHROMBIN TIME PATIENT 40.1 SEC (12.2-14.7)
[2017-10-28] MEDS ORDERED: DILT180C90 PO (11:17)
--- NOTE | 2017-10-28 11:23 | Progress Note-Hospitalist ---
Subjective HPI/CC On Admission Date Seen by Provider: Oct 28, 2017 Time Seen by Provider: 11:19 Pt is a 72yoCF with a PMH of HTN and PE on chronic anticoagulation who presented to the ER with CC of fever, chills, and feeling poorly. She states her symptoms started the evening of 10/20. 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 During that game she started to feel worse so left very quickly and was in bed most of the next two days with poor appetite, fever, and fatigue. She also noticed that her urine was off color. She continued to feel worse so her brother prompted her to seek evaluation in the ER. She was found to have bilateral pneumonia and meet sepsis criteria so was admitted for IV abx. Subjective/Events-last exam Patient took a shower independently without difficulty. She reports decreased cough with clearing sputum per reduction and diminished and amounts. She's had no night sweats chills or fever. She reports her oxygen level did drop to 87 percent with walking without symptoms and she does feel as though her dyspnea on exertion is improving. She's had no palpitations or chest discomfort. She denies any lightheadedness. Objective Exam Vital Signs Vital Signs Date Time Temp Pulse Resp B/P (MAP) Pulse Ox O2 Delivery O2 Flow Rate FiO2 10/28/17 08:00 97.9 103 20 117/58 (77) 99 Nasal Cannula 2.00 10/26/17 15:51 28 Capillary Refill : Less Than 3 Seconds General Appearance: No Apparent Distress, Obese Respiratory: No Accessory Muscle Use, No Respiratory Distress, Other ( Persistent rales in the right upper lobe and right base posteriorly anteriorly chest is clear no wheezing is noted.) Cardiovascular: Regular Rate, Rhythm, No Edema, No Gallop, No JVD, No Murmur, Normal Peripheral Pulses Extremity: Normal Inspection, Normal Range of Motion, Non Tender, No Calf Tenderness, No Pedal Edema Results/Procedures Lab Patient resulted labs reviewed. Imaging: Reviewed Imaging Report Assessment/Plan Assessment and Plan Assess & Plan/Chief Complaint 1. Bilateral community-acquired pneumonia. The patient is clinically improving with decreased white count remains afebrile. ambulation encouraged . 2. Possible atrial fibrillation on Tuesday has resolved heart rate is regular today. EKGs reviewed from emergency room reveals sinus tachycardia. 3. Hypertension pressures doing well on diltiazem will continue to hold diuretic therapy and discharged on 180 mg of diltiazem CD daily. 4. Acute kidney injury secondary to infection with sepsis and secondary dehydration resolved. 5. Treated DVT possible paroxysmal fibrillation INR level decreasing down to 4.4 today. Continue to hold Coumadin with repeat INR and CBC in the morning. We'll plan a.m. discharge if progress continues. Critical Care Critical Care: Critically Ill Patient Clinical Quality Measures DVT/VTE Risk/Contraindication: Risk Factor Score Per Nursin RFS Level Per Nursing on Admit: 4+=Very High SHARON JEAN MD Oct 28, 2017 11:23
[2017-10-28 16:10] VITALS: BP 127/72
[2017-10-29] VITALS: BP 123/56
[2017-10-29] MEDS: cefTRIAXone 1 GM/NS 50 ML IVPB IV SCH ×2 (01:43)
[2017-10-29] MEDS: CATHETER FLUSH 10 ML SYR IV SCH ×2 (01:44→06:40)
[2017-10-29 07:11] LABS: BASOPHILS # (AUTO) 0.1 10^3/uL (0.0-0.1); BASOPHILS % (AUTO) 1 % (0-10); EOSINOPHILS # (AUTO) 0.6 10^3/uL (0.0-0.3); EOSINOPHILS % (AUTO) 5 % (0-10); HEMATOCRIT 34 % (35-52); HEMOGLOBIN 11.3 G/DL (11.5-16.0); LYMPHOCYTES # (AUTO) 2.3 X 10^3 (1.0-4.0); LYMPHOCYTES % (AUTO) 18 % (12-44); MEAN CORPUSCULAR HEMOGLOBIN 29 PG (25-34); MEAN CORPUSCULAR HGB CONC 33 G/DL (32-36); MEAN CORPUSCULAR VOLUME 87 FL (80-99); MONOCYTES # (AUTO) 1.3 X 10^3 (0.0-1.0); MONOCYTES % (AUTO) 10 % (0-12); NEUTROPHILS # (AUTO) 8.3 X 10^3 (1.8-7.8); NEUTROPHILS % (AUTO) 66 % (42-75); PLATELET COUNT 320 10^3/uL (130-400); RED BLOOD COUNT 3.95 10^6/uL (4.35-5.85); RED CELL DISTRIBUTION WIDTH 14.9 % (10.0-14.5); WHITE BLOOD COUNT 12.6 10^3/uL (4.3-11.0)
[2017-10-29 07:34] LABS: INR 3.2 (0.8-1.4)
[2017-10-29 07:49] LABS: BAND NEUTROPHILS 2 %; EOSINOPHILS % (MANUAL) 2 %; HYPERSEGMENTED NEUT SLIGHT; LYMPHOCYTES % (MANUAL) 25 %; MONOCYTES % (MANUAL) 11 %; NEUTROPHILS % (MANUAL) 60 %
[2017-10-29 08:00] VITALS: BP 108/69
[2017-10-29] MEDS: PENTOXIFYLLINE ER 400 MG (TRENtal) TAB PO SCH (08:15)
[2017-10-29] MEDS: ALLOPURINOL 100 MG (ZYLOPRIM) TAB PO SCH (08:15)
[2017-10-29] MEDS: DILTIAZEM 180 MG (CARDIZEM CD) CAP PO SCH (08:15)
--- NOTE | 2017-10-29 10:13 | Discharge Summary-Hospitalist ---
Diagnosis/Chief Complaint Date of Admission Oct 24, 2017 at 03:30 Date of Discharge Discharge Date: Oct 29, 2017 Admission Diagnosis Sepsis and CAP Discharge Diagnosis 1. Community-acquired pneumonia atypical 2. Sepsis secondary to number 1. 3. Acute kidney injury secondary to number 1. 4. 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 (1) Sepsis Status: Acute Assessment & Plan: Bilateral pneumonia Continue on CAP coverage Titrate oxygen to keep sats >90% Cultures pending (2) Pneumonia Status: Acute Assessment & Plan: Antitbiotics as above CURB 65 score of 3 (3) VERN (acute kidney injury) Status: Acute Assessment & Plan: Unsure of baseline Continue IVF (4) Supratherapeutic INR Status: Acute Assessment & Plan: On for history of PE Slightly above goal Hold home warfarin today Recheck INR in am (5) Essential (primary) hypertension Assessment & Plan: Hold home meds as BP well controlled Discharge Summary Discharge Physical Exam Allergies: Coded Allergies: aspirin (Verified Adverse Reaction, Unknown, 10/24/17) States won't take it as is on warfarin Vitals & I&Os Vital Signs Date Time Temp Pulse Resp B/P (MAP) Pulse Ox O2 Delivery O2 Flow Rate FiO2 10/29/17 09:15 97 10/29/17 08:00 98.0 105 18 108/69 (82) Nasal Cannula 2.00 10/28/17 11:19 21 General Appearance: No Apparent Distress Respiratory: No Accessory Muscle Use, No Respiratory Distress, Other ( Inspiratory rales right upper and right lower lobe elsewhere her chest is clear) Cardiovascular: Regular Rate, Rhythm, No Gallop, No JVD, No Murmur, Other ( Trace pedal and pretibial edema) Hospital Course Pt is a 72yoCF with a PMH of HTN and PE on chronic anticoagulation who presented to the ER with CC of fever, chills, and feeling poorly. She states her symptoms started the evening of 10/20. 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 During that game she started to feel worse so left very quickly and was in bed most of the next two days with poor appetite, fever, and fatigue. She also noticed that her urine was off color. She continued to feel worse so her brother prompted her to seek evaluation in the ER. She was found to have bilateral pneumonia and meet sepsis criteria so was admitted for IV abx Hospital course: Patient was admitted and started on IV fluids for rehydration and Edd azithromycin and Rocephin for treatment of community-acquired pneumonia chest x-ray revealing predominantly by basilar and right upper lobe alveolar and interstitial infiltrate. She had minimal sputum production and cultures were negative. Strongly suspect a viral etiology mycoplasma being less likely. The following morning her creatinine level in come down to 1 level of 1.87 and normalization of blood pressures. Her cough improved and temperatures resolved. On the day of her discharge she still has inspiratory rales in the right upper lobe and the right base posteriorly elsewhere her chest was clear. Her O2 saturations were still in the low 80s at rest intermittently other times of the day saturations were normal. She was ambulated and required 2 L to maintain saturations greater than 85 percent. She had no difficulty with ambulation and had no evidence for respiratory distress. She was alert and oriented. Because of her hypoxemia and age I will be seeing her back in the office this coming Tuesday. She's been afebrile and his had 6 doses of Rocephin as well as full course of azithromycin she will not be going home on antibiotics. Because of her acute kidney injury and dehydration as well as some tachycardia and questionable atrial fibrillation on examination that was not documented on any EKGs she was switched to diltiazem 180 mg with resolution of resting tachycardia and she remained in a regular rhythm on evaluation per this examiner. Her INR level was in the upper 4 range without evidence for bleeding on admission Coumadin was held during her hospital stay with the level of 3.2 on discharge she will resume her Coumadin I believe 6 mg daily and we will repeat an INR and O2 sat monitoring on her return on Tuesday. Labs (last 24 hrs) Laboratory Tests 10/29/17 06:50: White Blood Count 12.6H, Red Blood Count 3.95L, Hemoglobin 11.3L, Hematocrit 34L , Mean Corpuscular Volume 87, Mean Corpuscular Hemoglobin 29, Mean Corpuscular Hemoglobin Concent 33, Red Cell Distribution Width 14.9H, Platelet Count 320, Mean Platelet Volume 11.0H, Neutrophils (%) (Auto) 66, Lymphocytes (%) (Auto) 18 , Monocytes (%) (Auto) 10, Eosinophils (%) (Auto) 5, Basophils (%) (Auto) 1, Neutrophils # (Auto) 8.3H, Lymphocytes # (Auto) 2.3, Monocytes # (Auto) 1.3H, Eosinophils # (Auto) 0.6H, Basophils # (Auto) 0.1, Neutrophils % (Manual) 60, Lymphocytes % (Manual) 25, Monocytes % (Manual) 11, Eosinophils % (Manual) 2, Band Neutrophils 2, Hypersegmented Neutrophils SLIGHT, Prothrombin Time 33.0H, INR Comment 3.2H Microbiology 10/24/17 Blood Culture - Preliminary, Resulted No growth 10/26/17 Gram Stain - Final, Complete 10/26/17 Sputum Culture - Final, Complete See Comments 10/24/17 Urine Culture - Final, Complete See Report Patient resulted labs reviewed. Pending Labs Laboratory Tests 10/29/17 06:50: White Blood Count 12.6, Red Blood Count 3.95, Hemoglobin 11.3, Hematocrit 34, Mean Corpuscular Volume 87, Mean Corpuscular Hemoglobin 29, Mean Corpuscular Hemoglobin Concent 33, Red Cell Distribution Width 14.9, Platelet Count 320, Mean Platelet Volume 11.0, Neutrophils (%) (Auto) 66, Lymphocytes (%) (Auto) 18 , Monocytes (%) (Auto) 10, Eosinophils (%) (Auto) 5, Basophils (%) (Auto) 1, Neutrophils # (Auto) 8.3, Lymphocytes # (Auto) 2.3, Monocytes # (Auto) 1.3, Eosinophils # (Auto) 0.6, Basophils # (Auto) 0.1, Neutrophils % (Manual) 60, Lymphocytes % (Manual) 25, Monocytes % (Manual) 11, Eosinophils % (Manual) 2, Band Neutrophils 2, Hypersegmented Neutrophils SLIGHT, Prothrombin Time 33.0, INR Comment 3.2 Imaging: Reviewed Imaging Report Discussion & Recommendations Discharge Planning: >30 minutes discharge planning Discharge Home Medications: Active Scripts Active Diltiazem 24Hr Cd (Diltiazem HCl) 180 Mg Cap.er.24h 180 Mg PO DAILY 30 Days Reported Zyrtec-D Tablet (Cetirizine HCl/Pseudoephedrine) 1 Each Tab.er.12h 1 Tab PO BID PRN Pentoxifylline 400 Mg Tablet.er 400 Mg PO 1200 PRN Tylenol Extra Strength (Acetaminophen) 500 Mg Tablet 1,000 Mg PO Q4H PRN Warfarin Sodium 6 Mg Tablet 6 Mg PO 1800 Allopurinol 100 Mg Tablet 100 Mg PO DAILY Pentoxifylline 400 Mg Tablet.er 400 Mg PO BID LAST FILLED #90 06-24-17 Instructions to patient/family Please see electronic discharge instructions given to patient. Clinical Quality Measures DVT/VTE Risk/Contraindication: Risk Factor Score Per Nursin RFS Level Per Nursing on Admit: 4+=Very High Problem Qualifiers (1) Sepsis: Sepsis type: sepsis due to unspecified organism Qualified Codes: A41.9 - Sepsis, unspecified organism (2) Pneumonia: Pneumonia type: due to unspecified organism Laterality: unspecified laterality Lung location: unspecified part of lung Qualified Codes: J18.9 - Pneumonia, unspecified organism SHARON JEAN MD Oct 29, 2017 10:13
[2017-10-29 11:14] VITALS: BP 108/69
== END 2017-10-29 11:15 | disposition home or self-care (01) | DRG 871 ==
LOC: EDUNIT# 23:54 → ER 10-24 → 4TH 10-24 03:30
PROVIDERS: ADMIT Internal Medicine; ATTEND Internal Medicine
DX: A41.9 Sepsis, unspecified organism (principal); R65.20 Severe sepsis without septic shock; J18.9 Pneumonia, unspecified organism; N17.9 Acute kidney failure, unspecified; I48.0 Paroxysmal atrial fibrillation; E86.0 Dehydration; I10 Essential (primary) hypertension; R79.1 Abnormal coagulation profile; J30.2 Other seasonal allergic rhinitis; R30.0 Dysuria; M10.9 Gout, unspecified; Z79.01 Long term (current) use of anticoagulants; Z86.711 Personal history of pulmonary embolism; Z86.718 Personal history of other venous thrombosis and embolism
CPT/HCPCS: 36415; 71046; 80048; 80053; 81000; 83605; 85007; 85025; 85027; 85610; 85730; 87040; 87070; 87088; 87205; 93005; 94640; 94760; 94761; 96361; 96374

== ENCOUNTER 2022-08-06 21:47 | Inpatient (IN) | payer MEDICARE ==
[~2022-08-06] VITALS: Ht 157.2 cm; Wt 106.0 kg
[~2022-08-06 21:47] MED LIST: ACET-2267 PO; ALLO100T PO; AMIL1TAB PO; CETI1TAB61 PO; DILT-28 PO; PNT400TCR PO; WARF6TAB49 PO
[2022-08-06] MEDS ORDERED: NS IV 1000 ML 1,000 ML IV STA (22:26)
--- NOTE | 2022-08-06 22:28 | ED Respiratory ---
General Chief Complaint: Respiratory Problems Stated Complaint: COUGH/FATIGUE/NO APPETITE/SOA Nursing Triage Note: Pt amb to rm 7 with cc of sob. Pt was on trip in [place], Pt developed a cough on Tuesday that has increased in severity. oxymask placed on patient at 2200 due to pts o2 sat of 68%. pt did not take any meds today and only took some yesterday. hx of afib. History of Present Illness Date Seen by Provider: Aug 06, 2022 Time Seen by Provider: 22:15 Initial Comments Patient is a 77-year-old female with a history of hypertension, A-fib, diabetes who presents to the emergency room with family chief complaint shortness of breath, cough, fatigue. She has been traveling to [place] with family and got sick a couple of days ago. Decreased appetite over the last 24 to 36 hours. She denies chest pain/palpitations. She does not wear oxygen at home and was found to have room air sats of 68% at presentation to the emergency department. She states that she has not taken her medications today or yesterday. She has not taken her Coumadin in 2 days. She has had several family members who have been sick with cough and congestion as well. Denies diarrhea, black or bloody stools. SHe has had some increased urinary frequency without dysuria. She denies swelling in her legs. She is not a smoker. She does have a history of asthma. She does use inhalers occasionally. At presentation she is pleasant, smiling, nontoxic in appearance. Heart rate in the 140s, pressure 115 systolic. A simple facemask at 4 L she is 96% Timing/Duration: other (2 to 3 days) Severity: severe Modifying Factors: Worse With Activity Associated Symptoms: cough, dizziness, shortness of breath, other (Fatigue) Allergies and Home Medications Allergies Coded Allergies: aspirin (Verified Adverse Reaction, Unknown, 10/24/17) States won't take it as is on warfarin Patient Home Medication List Home Medication List Reviewed: Yes Acetaminophen (Tylenol Extra Strength) 500 Mg Tablet, 1,000 MG PO Q4H PRN for PAIN-MILD OR TEMPATURE, (Reported) Entered as Reported by: RIA IBRAHIM on 10/24/17 1132 Allopurinol (Allopurinol) 100 Mg Tablet, 100 MG PO DAILY, (Reported) Entered as Reported by: ANGELICA GARCIA on 10/24/1731 Cetirizine HCl/Pseudoephedrine (Zyrtec-D Tablet) 1 Each Tab.er.12h, 1 TAB PO BID PRN for CONGESTION, (Reported) Entered as Reported by: RIA IBRAHIM on 10/24/17 113 Diltiazem HCl (Diltiazem 24Hr Cd) 180 Mg Cap.er.24h, 180 MG PO DAILY Prescribed by: SHARON JEAN on 10/28/17 1117 Pentoxifylline (Pentoxifylline) 400 Mg Tablet.er, 400 MG PO BID, (Reported) Entered as Reported by: ANGELICA GARCIA on 10/24/1731 Pentoxifylline (Pentoxifylline) 400 Mg Tablet.er, 400 MG PO 1200 PRN for CIRCULATION, (Reported) Entered as Reported by: RIA IBRAHIM on 10/24/17 113 Warfarin Sodium (Warfarin Sodium) 6 Mg Tablet, 6 MG PO 1800, (Reported) Entered as Reported by: ANGELICA GARCIA on 10/24/17730 Review of Systems Review of Systems Constitutional: see HPI, malaise EENTM: no symptoms reported Respiratory: cough, short of breath Cardiovascular: no symptoms reported Gastrointestinal: no symptoms reported Genitourinary: frequency : No Musculoskeletal: no symptoms reported Skin: no symptoms reported All Other Systems Reviewed Negative Unless Noted: Yes Past Mnwxxog-Gcndkv-Nichzm Hx Patient Social History Tobacco Use?: No Substance use?: No Alcohol Use?: No Seasonal Allergies Seasonal Allergies: Yes Past Medical History Surgeries: Yes Respiratory: Yes Pneumonia Cardiac: Yes (left leg blood clots) Neurological: No Genitourinary: Yes UTI-Chronic Gastrointestinal: Yes Abdominal Hernia Musculoskeletal: Yes Gout Endocrine: No HEENT: No Cancer: No Psychosocial: No Integumentary: No Blood Disorders: Yes (Anemia after hysterectomy) Adverse Reaction/Blood Tranf: No Family Medical History Asthma 19 MOTHER Dementia 19 MOTHER Diabetes mellitus 19 MOTHER G8 BROTHER FH: bladder cancer 19 MOTHER FH: prostate cancer G8 BROTHER FH: stroke 19 MOTHER Glaucoma 19 MOTHER Hypertension 19 MOTHER G8 BROTHER Kidney disease G8 BROTHER Myocardial infarction 19 MOTHER G8 BROTHER Physical Exam Vital Signs - First Documented 08/06/22 22:11 Temp 37.1 Pulse 134 Resp 28 B/P (MAP) 117/107 (110) Pulse Ox 68 Capillary Refill : Height: 5'3.00" Weight: 209lbs. 8.0oz. 95.974303il; 42.00 BMI Method:Stated General Appearance: WD/WN, no apparent distress Eyes: Bilateral Eye Normal Inspection, Bilateral Eye PERRL, Bilateral Eye EOMI HEENT: PERRL/EOMI Neck: normal inspection Respiratory: lungs clear, normal breath sounds, no respiratory distress, no accessory muscle use Cardiovascular: tachycardia, irregularly irregular Gastrointestinal: normal bowel sounds, non tender, soft Extremities: normal range of motion, non-tender, normal inspection, no pedal edema, normal capillary refill Neurologic/Psychiatric: no motor/sensory deficits, alert, normal mood/affect, oriented x 3 Skin: normal color, warm/dry Focused Exam Lactate Level 08/06/22 23:21: Lactic Acid Level 1.36 Lactic Acid Level Laboratory Tests Test 08/06/22 23:21 Lactic Acid Level 1.36 MMOL/L (0.50-2.00) Progress/Results/Core Measures Suspected Sepsis SIRS Temperature: Pulse: 134 Respiratory Rate: 28 Laboratory Tests 08/06/22 22:05: White Blood Count 19.6H Blood Pressure 117 /107 Mean: 110 08/06/22 23:21: Lactic Acid Level 1.36 Laboratory Tests 08/06/22 22:05: Creatinine 1.59H, Platelet Count 303, Total Bilirubin 1.8H 08/06/22 23:09: INR Comment 1.3 Results/Orders Lab Results Laboratory Tests Test 08/06/22 22:04 08/06/22 22:05 08/06/22 23:09 08/06/22 23:21 Range/Units SARS-CoV-2 RNA (RT-PCR) Not Detected Not Detecte White Blood Count 19.6 H 4.3-11.0 10^3/uL Red Blood Count 5.31 H 3.80-5.11 10^6/uL Hemoglobin 15.1 11.5-16.0 g/dL Hematocrit 46 35-52 % Mean Corpuscular Volume 87 80-99 fL Mean Corpuscular Hemoglobin 28 25-34 pg Mean Corpuscular Hemoglobin Concent 33 32-36 g/dL Red Cell Distribution Width 15.0 H 10.0-14.5 % Platelet Count 303 130-400 10^3/uL Mean Platelet Volume 12.0 9.0-12.2 fL Immature Granulocyte % (Auto) 1 % Neutrophils (%) (Auto) 71 42-75 % Lymphocytes (%) (Auto) 13 12-44 % Monocytes (%) (Auto) 14 H 0-12 % Eosinophils (%) (Auto) 0 0-10 % Basophils (%) (Auto) 1 0-10 % Neutrophils # (Auto) 14.0 H 1.8-7.8 10^3/uL Lymphocytes # (Auto) 2.5 1.0-4.0 10^3/uL Monocytes # (Auto) 2.7 H 0.0-1.0 10^3/uL Eosinophils # (Auto) 0.0 0.0-0.3 10^3/uL Basophils # (Auto) 0.1 0.0-0.1 10^3/uL Immature Granulocyte # (Auto) 0.2 H 0.0-0.1 10^3/uL Neutrophils % (Manual) 58 % Lymphocytes % (Manual) 21 % Monocytes % (Manual) 13 % Band Neutrophils 5 % Reactive Lymphocytes 3 % Sodium Level 138 135-145 MMOL/L Potassium Level 3.5 L 3.6-5.0 MMOL/L Chloride Level 95 L 98-107 MMOL/L Carbon Dioxide Level 25 21-32 MMOL/L Anion Gap 18 H 5-14 MMOL/L Blood Urea Nitrogen 31 H 7-18 MG/DL Creatinine 1.59 H 0.60-1.30 MG/DL Estimat Glomerular Filtration Rate 33 BUN/Creatinine Ratio 19 Glucose Level 121 H 70-105 MG/DL Calcium Level 10.3 H 8.5-10.1 MG/DL Corrected Calcium 10.7 H 8.5-10.1 MG/DL Magnesium Level 1.7 1.6-2.4 MG/DL Total Bilirubin 1.8 H 0.1-1.0 MG/DL Aspartate Amino Transf (AST/SGOT) 17 5-34 U/L Alanine Aminotransferase (ALT/SGPT) 21 0-55 U/L Alkaline Phosphatase 114 40-136 U/L Myoglobin 130.1 H 10.0-92.0 NG/ML Troponin I < 0.028 <0.028 NG/ML B-Type Natriuretic Peptide 82.5 <100.0 PG/ML Total Protein 8.6 H 6.4-8.2 GM/DL Albumin 3.5 3.2-4.5 GM/DL Prothrombin Time 16.1 H 12.2-14.7 SEC INR Comment 1.3 0.8-1.4 Activated Partial Thromboplast Time 34 24-35 SEC Lactic Acid Level 1.36 0.50-2.00 MMOL/L Test 08/07/22 00:20 Range/Units Urine Color ORANGE Urine Clarity CLEAR Urine pH 5.5 5-9 Urine Specific Theresa >=1.030 1.016-1.022 Urine Protein 2+ H NEGATIVE Urine Glucose (UA) TRACE H NEGATIVE Urine Ketones NEGATIVE NEGATIVE Urine Nitrite NEGATIVE NEGATIVE Urine Bilirubin 2+ H NEGATIVE Urine Urobilinogen >=8.0 < = 1.0 MG/DL Urine Leukocyte Esterase TRACE H NEGATIVE Urine RBC (Auto) NEGATIVE NEGATIVE Urine RBC NONE /HPF Urine WBC 2-5 /HPF Urine Squamous Epithelial Cells 2-5 /HPF Urine Crystals NONE /LPF Urine Bacteria LARGE H /HPF Urine Casts PRESENT /LPF Urine Hyaline Casts 0-2 H /LPF Urine Granular Casts 0-2 H /LPF Urine White Blood Cell Casts 0-2 H /LPF Urine Mucus SMALL H /LPF Urine Culture Indicated YES My Orders Orders - GALEN PERSAUD MD Ekg Tracing (08/06/22 22:11) Cbc With Automated Diff (08/06/22 22:) Magnesium (08/06/22 22:26) Chest 1 View, Ap/Pa Only (08/06/22 22:26) Comprehensive Metabolic Panel (08/06/22 22:) Myoglobin Serum (08/06/22 22:26) Protime With Inr (08/06/22 22:26) Partial Thromboplastin Time (08/06/22 22:26) O2 (08/06/22 22:26) Monitor-Rhythm Ecg Trace Only (08/06/22 22:) Lipid Panel (08/07/22 06:00) Ed Iv/Invasive Line Start (08/06/22 22:26) Troponin I [place] (08/06/22 22:26) Ua Culture If Indicated (08/06/22 22:26) Ns Iv 1000 Ml (Sodium Chloride 0.9%) (08/06/22 22:26) Enoxaparin Injection (Lovenox Injection) (08/06/22 22:30) Diltiazem Injection (Cardizem Injection) (08/06/22 22:30) Manual Differential (08/06/22 22:05) Covid 19 Inhouse Test (08/06/22 23:02) Bnp Enriqueta (08/06/22 23:08) Blood Culture (08/06/22 23:08) Lactic Acid Analyzer (08/06/22 23:08) Diltiazem Drip Pre-Mix (Cardizem Drip Pr (08/06/22 23:45) Diltiazem Drip Pre-Mix (Cardizem Drip Pr (08/06/22 23:34) Piperacillin Sodium/Tazobactam (Zosyn Vi (08/07/22 00:15) Urine Culture (08/07/22 00:20) Medications Given in ED Current Medications Medications Dose Ordered Sig/Sarbjit Route Start Time Stop Time Status Last Admin Dose Admin Diltiazem HCl 10 mg ONCE ONCE IVP 08/06/22 22:30 08/06/22 22:31 DC 08/06/22 22:37 10 MG Enoxaparin Sodium 100 mg ONCE ONCE SC 08/06/22 22:30 08/06/22 22:31 DC 08/06/22 22:38 100 MG Piperacillin Sod/ Tazobactam Sod 4.5 gm/Sodium Chloride 100 ml @ 200 mls/hr ONCE ONCE IV 08/07/22 00:15 08/07/22 00:44 DC 08/07/22 00:30 200 MLS/HR Vital Signs/I&O 08/06/22 08/06/22 08/06/22 08/06/22 22:00 22:00 22:11 22:37 Temp 37.1 Pulse 134 146 Resp 28 B/P (MAP) 117/107 (110) 119/107 Pulse Ox 68 O2 Delivery OxyMask OxyMask Room Air O2 Flow Rate 6.00 6.00 08/06/22 23:40 Pulse 116 B/P (MAP) 148/99 08/07/22 00:00 Intake Total 1000 ml Balance 1000 ml Capillary Refill : Blood Pressure Mean: 110 Progress Note : Time: 01:03 Progress Note Patient seen and evaluated by me. Evaluation today includes "cardiac work-up" with BNP, blood cultures and lactic acid, urinalysis. Pertinent physical exam findings, well-developed well-nourished female in no acute distress. Pleasant, conversant, tachycardic in the 140s. Lungs are clear, heart is irregularly irregular. Abdomen is soft and nontender. No lower extremity edema. No focal neurologic deficits. Patient is afebrile. Differential diagnosis based on history and physical, A-fib with RVR, possibly due to medication noncompliance, possible pneumonia, urinary tract infection. Labs Independently reviewed and interpreted by me. CBC shows a white count of 19.6, hemoglobin of 15.1, hematocrit of 46, platelet count of 303. Chemistry pertinent for BUN of 31, creatinine of 1.59 otherwise unremarkable. Total bili mildly elevated at 1.8. Troponin undetectable. BNP 82.5. Lactic acid 1.36. Coags show PTT of 34, INR of 1.3, PT slightly increased at 16.1. Urinalysis shows a specific gravity greater than 1.030 with 2+ protein, trace glucose and leukocyte Estrace. 2-5 white blood cells, 2-5 squamous epithelial cells. Large bacteria. COVID is negative. Chest x-ray demonstrates mild increased pulmonary vascular congestion with concern for right lower lobe infiltrate. Patient is treated with some IV fluids, normal saline as well as Cardizem bolus and drip. She was given lovenox (as she had been off her coumadin 2 days). She is currently rate controlled on 5 mg an hour. Case was discussed with Dr. Alesha Rodriguez on for the hospitalist service who accepts the patient for admission to the ICU. Will consult Dr. Macias, cardiology in a.m. ECG Initial ECG Impression Date: Aug 07, 2022 Initial ECG Impression Time: 22:15 Initial ECG Rate: 154 Initial ECG Rhythm: A Fib/Flutter Initial ECG Impression: Atrial Fibrillation w/RVR Diagnostic Imaging Diagonstic Imaging: Xray Plain Films/CT/US/NM/MRI: chest Comments Chest x-ray independently reviewed and interpreted by maximo increased pulmonary vascular congestion, possible developing right lower lobe infiltrate Critical Care Note Critical Care Start Time: 22:15 Stop Time: 00:00 Total Time (minutes) 30 min critical care time in the eval and management of this 77yo female with hypoxia and Afib RVR. Time includes initial eval and treatment of hypoxia with supplemental oxygen, management of Afib RVR with Cardizem bolus and drip. Review and interpretation of labs, CXR; review old records. Discussion with family members. Discussion with admitting provider. Departure Communication (Admissions) Time/Spoke to Admitting Phy: 22:[address] Rodriguez Impression Primary Impression: Hypoxia Additional Impressions: Atrial fibrillation with rapid ventricular response UTI (urinary tract infection) Qualified Codes: N30.00 - Acute cystitis without hematuria Pneumonia Qualified Codes: J18.9 - Pneumonia, unspecified organism Disposition: ADMITTED INPATIENT Condition: Critical Admissions Decision to Admit Reason: Admit from ER (General) Decision to Admit/Date: Aug 06, 2022 Time/Decision to Admit Time: 22:44 Departure-Patient Inst. Referrals: SHARON JEAN MD (PCP/Family) Primary Care Physician Copy Copies To 1: SHARON JEAN MD, KATHRYN M MD Aug 06, 2022 22:28
[2022-08-06] MEDS ORDERED: ENOXAPARIN 100 MG/1 ML (LOVENOX) SYR SC ONE (22:30)
[2022-08-06 22:34] LABS: BASOPHILS # (AUTO) 0.1 10^3/uL (0.0-0.1); BASOPHILS % (AUTO) 1 % (0-10); EOSINOPHILS % (AUTO) 0 % (0-10); HEMATOCRIT 46 % (35-52); HEMOGLOBIN 15.1 g/dL (11.5-16.0); LYMPHOCYTES # (AUTO) 2.5 10^3/uL (1.0-4.0); LYMPHOCYTES % (AUTO) 13 % (12-44); MEAN CORPUSCULAR HEMOGLOBIN 28 pg (25-34); MEAN CORPUSCULAR HGB CONC 33 g/dL (32-36); MEAN CORPUSCULAR VOLUME 87 fL (80-99); MONOCYTES # (AUTO) 2.7 10^3/uL (0.0-1.0); MONOCYTES % (AUTO) 14 % (0-12); NEUTROPHILS % (AUTO) 71 % (42-75); PLATELET COUNT 303 10^3/uL (130-400); WHITE BLOOD COUNT 19.6 10^3/uL (4.3-11.0)
[2022-08-06 22:39] LABS: ALBUMIN 3.5 GM/DL (3.2-4.5); CHLORIDE 95 MMOL/L (98-107)
[2022-08-06 22:40] LABS: POTASSIUM 3.5 MMOL/L (3.6-5.0); SODIUM 138 MMOL/L (135-145)
[2022-08-06 22:41] LABS: CALCIUM 10.3 MG/DL (8.5-10.1)
[2022-08-06 22:42] LABS: GLUCOSE 121 MG/DL (70-105); TOTAL PROTEIN 8.6 GM/DL (6.4-8.2)
[2022-08-06 22:43] LABS: CARBON DIOXIDE 25 MMOL/L (21-32)
[2022-08-06 22:44] LABS: BILIRUBIN,TOTAL 1.8 MG/DL (0.1-1.0)
[2022-08-06 22:45] LABS: ALKALINE PHOSPHATASE 114 U/L (40-136)
[2022-08-06 22:46] LABS: CREATININE SERUM 1.59 MG/DL (0.60-1.30); GFR ESTIMATED 33
[2022-08-06 22:47] LABS: BUN/CREATININE RATIO 19
[2022-08-06 22:48] LABS: ALANINE AMINOTRANSFERASE 21 U/L (0-55)
[2022-08-06 22:49] LABS: MAGNESIUM 1.7 MG/DL (1.6-2.4)
[2022-08-06 23:24] LABS: BAND NEUTROPHILS 5 %; LYMPHOCYTES % (MANUAL) 21 %; MONOCYTES % (MANUAL) 13 %; NEUTROPHILS % (MANUAL) 58 %; REACTIVE LYMPHOCYTES 3 %
[2022-08-06] MEDS ORDERED: dilTIAZem DRIP PRE-MIX 125 ML IV ONE (23:34)
[2022-08-06 23:40] LABS: INR 1.3 (0.8-1.4); PROTHROMBIN TIME PATIENT 16.1 SEC (12.2-14.7)
[2022-08-06] MEDS ORDERED: dilTIAZem DRIP PRE-MIX 125 ML IV SCH (23:45)
[2022-08-07] MEDS ORDERED: PIPERACILLIN SODIUM/TAZOBACTAM 4.5 GM in NS (IVPB) 100 ML IV ONE (00:15)
[2022-08-07 00:30] LABS: BILIRUBIN,URINE 2+ (NEGATIVE); CLARITY,URINE CLEAR; COLOR,URINE ORANGE; GLUCOSE, URINE (UA) TRACE (NEGATIVE); KETONES,URINE NEGATIVE (NEGATIVE); LEUKOCYTE ESTERASE ,URINE TRACE (NEGATIVE); NITRITE,URINE NEGATIVE (NEGATIVE); PH,URINE 5.5 (5-9); PROTEIN,URINE 2+ (NEGATIVE)
[2022-08-07 00:45] LABS: BACTERIA,URINE LARGE /HPF; GRANULAR CASTS,URINE 0-2 /LPF; HYALINE CASTS, URINE 0-2 /LPF; WHITE BLOOD CELL CASTS, URINE 0-2 /LPF
--- NOTE | 2022-08-07 01:45 | Tele-ICU Consult ---
History of Present Illness History of Present Illness Date Seen by Provider: Aug 07, 2022 Time Seen by Provider: 01:55 Date of Admission 08/07/22 History of Present Illness (Tele-ICU Physician , Progress Note ) Service provided via interactive audio and video telecommunications [facility] to a patient admitted to ICU bed in [facility]. Patient is seen today due to persistent need of ICU care Available chart/ vitals / labs / Images reviewed Video assessment done using teleICU camera, rest of exam as per RN She is a 77-year-old -[place] female with past medical history of hypertension type 2 diabetes mellitus and atrial fibrillation presented with a complaint of shortness of breath, cough, fatigue and palpitations. Apparently she got sick couple of days prior to this admission when she was traveling to with family and had a low-grade fever. She has not been taking her medications today and yesterday. She is supposed to be taking Coumadin but not taking due to her illness. In the emergency room she is found to have a hypoxia and atrial fibrillation with rapid ventricular rate with a heart rate of 140s. She required 4 L of oxygen via facemask which brought her oxygen saturation to 96%. She is started on a Cardizem drip and admitted to the intensive care unit. Chest x-ray showed bilateral infiltrate suggestive of pneumonia. Impression 1. Atrial fibrillation with rapid ventricular rate 2. Bilateral pneumonia 3. Acute kidney injury 4. Acute hypoxic respiratory failure Recommendation 1. Continue Cardizem drip per cardiology service 2. Restart on anticoagulant therapy and bridge with Lovenox 3. IV antibiotics. 4. DVT prophylaxis and stroke prophylaxis with full dose Lovenox. 5. Supplemental oxygen 6. We will give her bronchodilator therapy. 7. Hydrate patient with normal saline and monitor BUN and creatinine. Coordination of care with primary care physician and bedside consultants. I am remotely monitoring this patient from Tele icu station in [place]. I am unable to do the bedside exam, and history/physical and pertinent information is taken from other notes in the computer and bedside staff. Certain portions of this document may have been dictated utilizing voice recognition technology such as [employer]. Inherent to this technology, typographical and grammatical errors may exist. As much as I am diligent to identify and correct to these mistakes, some errors may remain in the document. Critical care time devoted to this patient today is approximately is 35 minutes-- Allergies and Home Medications Allergies Coded Allergies: aspirin (Verified Adverse Reaction, Unknown, 10/24/17) States won't take it as is on warfarin Home Medications Acetaminophen 500 Mg Tablet, 1,000 MG PO Q4H PRN for PAIN-MILD OR TEMPATURE, (Reported) Allopurinol 100 Mg Tablet, 100 MG PO DAILY, (Reported) Cetirizine HCl/Pseudoephedrine 1 Each Tab.er.12h, 1 TAB PO BID PRN for CONGESTION, (Reported) Diltiazem HCl 180 Mg Cap.er.24h, 180 MG PO DAILY Prescribed by: SHARON JEAN on 10/28/17 1117 Pentoxifylline 400 Mg Tablet.er, 400 MG PO BID, (Reported) LAST FILLED #90 06-24-17 Pentoxifylline 400 Mg Tablet.er, 400 MG PO 1200 PRN for CIRCULATION, (Reported) Warfarin Sodium 6 Mg Tablet, 6 MG PO 1800, (Reported) Past Medical/Social/Family Hx Patient Social History Tobacco Use?: No Substance use?: No Alcohol Use?: No Current Status Primary Language: Citizen Of [place] Preferred Spoken Language: Citizen Of [place] Review of Systems Constitutional: see HPI, fever, weakness Other ROS PER RN Focused Exam Lactate Level 08/06/22 23:21: Lactic Acid Level 1.36 Height, Weight, BMI Height: 5'3.00" Weight: 209lbs. 8.0oz. 95.212652md; 42.00 BMI Method:Stated Lactic Acid Level Laboratory Tests Test 08/06/22 23:21 Lactic Acid Level 1.36 MMOL/L (0.50-2.00) Exam Exam Patient acknowledged, consented, and participated in this virtual visit which was conducted using real time audio/video Vital Signs Date Time Temp Pulse Resp B/P (MAP) Pulse Ox O2 Delivery O2 Flow Rate FiO2 08/06/22 23:40 116 148/99 08/06/22 22:37 146 119/107 08/06/22 22:11 37.1 134 28 117/107 (110) 68 Room Air 08/06/22 22:00 OxyMask 6.00 08/06/22 22:00 OxyMask 6.00 I & O 08/07/22 07:00 Intake Total 1000 ml Balance 1000 ml Height & Weight Height: 5'3.00" Weight: 209lbs. 8.0oz. 95.461085ag; 42.00 BMI Method:Stated General Appearance: Moderate Distress, Obese Gastrointestinal: normal bowel sounds, non tender, soft Results Lab Laboratory Tests 08/06/22 22:05 Assessment/Plan Assessment/Plan ABOVE Critical Care: Critically Ill Patient Time spent with patient (mins): 35 KEHINDE SIMMONS MD Aug 07, 2022 01:45
[2022-08-07] MEDS ORDERED: HYDR50TA6 PO (02:23)
[2022-08-07] MEDS ORDERED: WARF-48 PO (02:23)
[2022-08-07] MEDS ORDERED: PNT400TCR PO (02:23)
[2022-08-07] MEDS ORDERED: AMLO-250 PO (02:23)
[2022-08-07] MEDS: RT-ALBUTEROL SULF 2.5 MG/3 ML PRE-MIX VIAL INH PRN (02:28)
[2022-08-07] MEDS ORDERED: NS IV 500 ML 500 ML IV PRN (02:30)
[2022-08-07 02:33] VITALS: BP 142/76
[2022-08-07] MEDS ORDERED: ONDANSETRON 4 MG/2 ML (SDV) Z0FRAN IV PRN (02:45)
[2022-08-07] MEDS ORDERED: NS (IVPB) 50 ML ONE (02:57)
[2022-08-07] MEDS: AZITHROMYCIN INJECTION 500 MG in NS (IVPB) 250 ML IV SCH (03:08)
[2022-08-07] MEDS: cefTRIAXone IV/IM 1,000 MG in NS (IVPB) 50 ML IV SCH (03:08)
[2022-08-07] MEDS: NS IV 1000 ML 1,000 ML IV SCH ×3 (03:08→21:52)
[2022-08-07] MEDS: dilTIAZem DRIP 125 MG/125 ML DRIP IV SCH ×3 (03:09→21:59)
[2022-08-07 05:24] LABS: BASOPHILS # (AUTO) 0.1 10^3/uL (0.0-0.1); BASOPHILS % (AUTO) 1 % (0-10); EOSINOPHILS # (AUTO) 0.1 10^3/uL (0.0-0.3); EOSINOPHILS % (AUTO) 0 % (0-10); HEMATOCRIT 40 % (35-52); HEMOGLOBIN 12.7 g/dL (11.5-16.0); LYMPHOCYTES # (AUTO) 2.2 10^3/uL (1.0-4.0); LYMPHOCYTES % (AUTO) 12 % (12-44); MEAN CORPUSCULAR HEMOGLOBIN 28 pg (25-34); MEAN CORPUSCULAR HGB CONC 32 g/dL (32-36); MEAN CORPUSCULAR VOLUME 88 fL (80-99); MONOCYTES # (AUTO) 2.8 10^3/uL (0.0-1.0); MONOCYTES % (AUTO) 15 % (0-12); NEUTROPHILS # (AUTO) 13.7 10^3/uL (1.8-7.8); NEUTROPHILS % (AUTO) 72 % (42-75); PLATELET COUNT 275 10^3/uL (130-400)
[2022-08-07 05:33] LABS: POTASSIUM 3.3 MMOL/L (3.6-5.0)
[2022-08-07 05:34] LABS: ALBUMIN 2.9 GM/DL (3.2-4.5)
[2022-08-07 05:35] LABS: CALCIUM 9.1 MG/DL (8.5-10.1)
[2022-08-07 05:36] LABS: TOTAL PROTEIN 7.1 GM/DL (6.4-8.2)
[2022-08-07 05:38] LABS: BILIRUBIN,TOTAL 1.4 MG/DL (0.1-1.0)
[2022-08-07 05:39] LABS: PHOSPHORUS 3.8 MG/DL (2.3-4.7)
[2022-08-07 05:40] LABS: CREATININE SERUM 1.48 MG/DL (0.60-1.30)
[2022-08-07 05:44] LABS: MAGNESIUM 1.6 MG/DL (1.6-2.4)
[2022-08-07] MEDS: inSUlin ASPART (NovoLOG) 1 UNIT/0.01 ML (CHARGE PER UNIT) SC SCH ×4 (05:45→20:14)
[2022-08-07] MEDS: POTASSIUM CL 10MEQ/50ML IVPB 50 ML IV SCH (05:45)
[2022-08-07] MEDS: KCL 20 MEQ TAB (K-DUR) PO SCH (05:46)
[2022-08-07] MEDS: MAGNESIUM 1 GM/100 ML IVPB 100 ML IV SCH ×5 (05:47→09:22)
--- NOTE | 2022-08-07 07:19 | Diagnostic Imaging Report ---
Indication: Shortness of air, cough and congestion. Compared: 10/24/2017 Findings: Coarse bilateral interstitial opacities as a chronic finding present with the disease showing some progression in the lung bases. Basilar pneumonia having developed could not be entirely excluded in the appropriate clinical scenario. Previously there was an acute infiltrate in the suprahilar right upper lobe, that has resolved with residual chronic disease at that site. Heart size stable. No effusion. No pneumothorax. Impression: Resolution of prior right upper lobe pneumonia, there is likely progressive chronic interstitial lung disease with progression greatest in the bases. No convincing evidence for acute consolidation, pleural pathology or failure pattern. Dictated by: Dictated on workstation # [id number]
[2022-08-07] MEDS ORDERED: PIPERACILLIN SODIUM/TAZOBACTAM 4.5 GM in NS (IVPB) 100 ML IV SCH (07:30)
[2022-08-07] MEDS ORDERED: KCL 20 MEQ TAB (K-DUR) PO ONE ×2 (08:00→10:00)
--- NOTE | 2022-08-07 08:40 | History & Physical-Hospitalist ---
History of Present Illness HPI/Chief Complaint Is 77-year-old -[place] female with past medical history of hypertension and atrial fibrillation who presented to the emergency department due to shortness of breath. She had recently been on a vacation to [facility] and started feeling poorly so decided to drive back yesterday so that she can be home and evaluated here. When she presented to the emergency department she was found to be quite hypoxic with sats in the 60s and was tachycardic with a rate in the 140s. She states that this is happened before when she has had pneumonia she is developed A-fib with RVR. She reports feeling much better today though is still somewhat short of breath and coughing. Denies any lower extremity edema or chest pain. Chest x-ray actually did not show any edema and her BNP was 82. She was found to have a leukocytosis and met sepsis criteria. It was concerning for urinary tract infection. She was placed empirically on antibiotics to cover for both pneumonia and UTI and she was admitted to the ICU on [facility] dr. Source: patient Date Seen 08/07/22 Time Seen by a Provider: 08:35 Attending Physician Ian Davalos MD PCP Admitting Physician: Tabitha Rodriguez MD Attending Physician: Tabitha Rodriguez MD Referring Physician Date of Admission Aug 07, 2022 at 01:18 Home Medications & Allergies Home Medications Reviewed patient Home Medication Reconciliation performed by pharmacy medication reconciliations biology specimen technician and/or nursing. Patients Allergies have been reviewed. Allergies Allergies Coded Allergies aspirin (Verified Adverse Reaction, Unknown, 10/24/17) States won't take it as is on warfarin Past Tsnkgqj-Tmhndp-Chrxbn Hx Patient Social History Tobacco Use?: No Smoking Status: Never a Smoker Smokeless Tobacco Frequency: Never a User Use of E-Cig and/or Vaping dev: No Substance use?: No Alcohol Use?: No Pt feels they are or have been: No Immunizations Up To Date Tetanus Booster (TDap): Unknown Hepatitis A: No Hepatitis B: No Seasonal Allergies Seasonal Allergies: Yes Current Status status: No status: No Advance Directives: No Communicates: Verbally Primary Language: Kittitian Preferred Spoken Language: Kittitian Sensory deficits: Vision impairment Implanted or Applied Medical D: None Past Medical History Pneumonia Atrial Fibrillation, Hypertension UTI-Chronic Abdominal Hernia Gout Blood Disorders: Yes (Anemia after hysterectomy) Adverse Reaction/Blood Tranf: No Family Medical History Reviewed Nursing Family Hx Asthma 19 MOTHER Dementia 19 MOTHER Diabetes mellitus 19 MOTHER G8 BROTHER FH: bladder cancer 19 MOTHER FH: prostate cancer G8 BROTHER FH: stroke 19 MOTHER Glaucoma 19 MOTHER Hypertension 19 MOTHER G8 BROTHER Kidney disease G8 BROTHER Myocardial infarction 19 MOTHER G8 BROTHER Review of Systems Constitutional: see HPI Physical Exam Physical Exam Vital Signs Vital Signs - First Documented 08/06/22 08/07/22 22:11 02:33 Temp 37.1 Pulse 134 Resp 28 B/P (MAP) 117/107 (110) Pulse Ox 68 FiO2 28 Capillary Refill : Less Than 3 Seconds Height, Weight, BMI Height: 5'3.00" Weight: 209lbs. 8.0oz. 95.635094tn; 40.79 BMI Method:Stated General Appearance: No Apparent Distress, WD/WN, Obese Respiratory: Lungs Clear, Wheezing (expiratory and right worse thanleft) Cardiovascular: Irregularly Irregular, Tachycardia Gastrointestinal: Normal Bowel Sounds, Soft Extremity: No Calf Tenderness, No Pedal Edema Neurologic/Psychiatric: Alert, Oriented x3, Normal Mood/Affect Results Results/Procedures Labs Laboratory Tests 08/06/22 22:05 08/07/22 04:59 Patient resulted labs reviewed. Imaging: Reviewed Imaging Report Imaging [facility], [place] NAME: DAVION [facility]VIS [facility] REC#: [id number] PT STATUS: ADM Amadeo : 1945 PHYSICIAN: GALEN PERSAUD MD ADMIT DATE: 08/07/22/ICU Draft Date of Exam:08/06/22 CHEST 1 VIEW, AP/PA ONLY Indication: Shortness of air, cough and congestion. Compared: 10/24/2017 Findings: Coarse bilateral interstitial opacities as a chronic finding present with the disease showing some progression in the lung bases. Basilar pneumonia having developed could not be entirely excluded in the appropriate clinical scenario. Previously there was an acute infiltrate in the suprahilar right upper lobe, that has resolved with residual chronic disease at that site. Heart size stable. No effusion. No pneumothorax. Impression: Resolution of prior right upper lobe pneumonia, there is likely progressive chronic interstitial lung disease with progression greatest in the bases. No convincing evidence for acute consolidation, pleural pathology or failure pattern. Dictated on workstation # [id number] Dict: 08/07/2249 Trans: 08/07/2218 CVB [id number] Interpreted by: DARWIN MACHADO Electronically signed by: Assessment/Plan Admission Diagnosis a fib with RVR Admission Status: Inpatient Order (span 2 midnights) Reason for Inpatient Admission: see below Assessment and Plan a fib with RVR Chronic anticoagulation HTN Acute hypoxic respiratory failure Currently on cardizem gtt Has been in and out of afib all night Cardiology consulted, appreciate recs COntinue Warfarin but INR a little low so will cover with lovenox today and recheck in AM Telemetry Hold home antihypertensives as BP controlled with gtt Takes Symbicort at home Uncertain underlying lung disease but CXR with concern for interstitial lung disease MAT protocol Wean as able Sepsis due to UTI- POA Leukocytosis with tachycardia dn tachypnea (though leukocytosis may be confounded but prednisone rx last week) Continue abx Cover with abx to cover for CAP as well DVT ppx: Lovenox and Warfarin as able TABITHA RODRIGUEZ MD Aug 07, 2022 08:40
[2022-08-07] MEDS: RT-ALBUTEROL SULF 2.5 MG/3 ML PRE-MIX VIAL INH SCH ×2 (09:46→20:40)
--- NOTE | 2022-08-07 10:04 | Tele-ICU Progress Note ---
Subjective Date Seen by a Provider: Aug 07, 2022 Time Seen by a Provider: 10:03 Subjective/Events-last exam (Tele-ICU Physician , Progress Note ) Service provided via interactive audio and video telecommunications E-CARE system to a patient admitted to ICU bed in [facility]. Patient is seen today due to persistent need of ICU care Available chart/ vitals / labs / Images reviewed Video assessment done using teleICU camera, rest of exam as per RN Discussed with RN Events overnight : Afebrile hemodynamically stable Respiratory - 4 l I/O = Drips: cadrdizem , NS Pressors- no Hospital course: (08/07) 77/F- HYPOXIC, AFIB RVR, off meds for 2 + days. oxymask in the er now 4l nc icu, uti and pna. Cardizem gtt. A/P A fib RVR ( known a fib --Cardizem drip , to resume home cardizem po - cards consulted cardiology service - ac with lovenox , - PRA on coumadin with INR 1.3 PNA , possible - cont abx for now Acute hypoxic respiratory failure - due to PNA , but xr with suspected chronic intrerst. changes - if more hypoxix - will stop IVF VERN - cont hydration Lines : , (Central Line Necessity Reviewed) Sierra: OG: Nutrition: po Analgesia: Anxiety/ delirium VTE Prophylaxis: full dose Lovenox. Stress Ulcer Prophylaxis: na Plans in collaboration with bedside consultants and IM MDs. Discussed with RN to reach out if any questions or concerns Case and care daily discussed on multidisciplinary rounds ( RN, PharmD, Advanced Manufacturing Consultant , Respiratory Therapy, clerical warehouse worker ) A total of 10 minutes of critical care time was devoted to this patient today, required to treat and/or prevent further deterioration of critical care condition ( as above ) . I am remotely monitoring this patient from another state. I am unable to do the bedside exam, and history/physical and pertinent information is taken from other notes in the computer and bedside staff. Sepsis Event Evaluation Height, Weight, BMI Height: 5'3.00" Weight: 209lbs. 8.0oz. 95.262485up; 40.79 BMI Method:Stated Focused Exam Lactate Level 08/06/22 23:21: Lactic Acid Level 1.36 Exam Exam Patient acknowledged, consented, and participated in this virtual visit which was conducted using real time audio/video Vital Signs Date Time Temp Pulse Resp B/P (MAP) Pulse Ox O2 Delivery O2 Flow Rate FiO2 08/07/22 10:01 98 103/66 08/07/22 09:00 98 103/66 (72) 95 Nasal Cannula 4.00 08/07/22 08:00 102 26 124/67 (86) 94 Nasal Cannula 4.00 08/07/22 07:48 Nasal Cannula 4.00 08/07/22 07:26 Nasal Cannula 2.00 08/07/22 07:00 101 08/07/22 07:00 108 28 140/78 (107) 99 Nasal Cannula 4.00 08/07/22 06:00 108 28 126/87 (100) 95 Nasal Cannula 4.00 08/07/22 05:00 105 20 141/78 (99) 95 Nasal Cannula 4.00 08/07/22 04:00 115 25 110/74 (80) 95 Nasal Cannula 4.00 08/07/22 03:55 96 Nasal Cannula 4.00 08/07/22 03:32 88 Nasal Cannula 4.00 08/07/22 03:09 110 125/60 08/07/22 03:00 107 19 125/60 (89) 97 Nasal Cannula 2.00 08/07/22 02:45 109 21 139/84 (100) 95 Nasal Cannula 2.00 08/07/22 02:33 112 99 28 08/07/22 02:30 130 22 145/79 (101) 95 Nasal Cannula 2.00 08/07/22 02:29 99 Nasal Cannula 2.00 08/07/22 02:24 Nasal Cannula 2.00 08/07/22 02:23 111 18 98 Nasal Cannula 2.00 08/07/22 02:15 126 27 142/91 (113) 99 Nasal Cannula 4.00 08/07/22 02:00 111 23 142/76 (116) 95 Nasal Cannula 4.00 08/07/22 01:57 Nasal Cannula 4.00 08/07/22 01:45 118 22 140/104 (114) 96 Nasal Cannula 4.00 08/07/22 01:35 138 08/07/22 01:33 123 08/07/22 01:32 37.3 106 24 147/99 (115) 97 Nasal Cannula 4.00 08/07/22 01:20 114 28 133/77 Room Air 08/06/22 23:40 116 148/99 08/06/22 22:37 146 119/107 08/06/22 22:11 37.1 134 28 117/107 (110) 68 Room Air 08/06/22 22:00 OxyMask 6.00 08/06/22 22:00 OxyMask 6.00 I & O 08/07/22 07:00 Intake Total 1850 ml Output Total 250 ml Balance 1600 ml Height & Weight Height: 5'3.00" Weight: 209lbs. 8.0oz. 95.335395hg; 40.79 BMI Method:Stated General Appearance: No Apparent Distress, WD/WN, Obese Respiratory: Lungs Clear, Wheezing (expiratory and right worse thanleft) Cardiovascular: Irregularly Irregular, Tachycardia Capillary Refill: Less Than 3 Seconds Gastrointestinal: normal bowel sounds, non tender, soft Extremity: No Calf Tenderness, No Pedal Edema Neurologic/Psychiatric: Alert, Oriented x3, Normal Mood/Affect Results Lab Laboratory Tests 08/06/22 22:05 08/07/22 04:59 Assessment/Plan Assessment/Plan 1 SHAD WHITE MD Aug 07, 2022 10:04
--- NOTE | 2022-08-07 10:49 | Consultation-Cardiology ---
HPI-Cardiology Cardiology Consultation: Date of Consultation 08/07/22 Time Seen by a Provider: 10:35 Date of Admission Attending Physician Sharon Davalos MD Admitting Physician Admitting Physician: Alejandra Rodriguez MD Attending Physician: Alejandra Rodriguez MD Consulting Physician AWA GOMEZ MD, MA, FACP, FACC, [facility], CCDS Physician requesting consult: Dr Rodriguez HPI: Chief Complaint: Reason for Card consult: PAF [address] Rodriguez on 08/06/22 with increasing shortness of breath associated with productive cough and a feeling of rapid heart beat.No cp or swelling. No n/v/d. No syncope. Diagnosed with pneumonia and UTI and PAF with RVR. Reports a h/o PAF (first seen at the time of pneumonia a few years ago). Review of Systems-Cardiology Review of Systems Constitutional: malaise, tiredness; No weight loss, No weight gain Eyes: No vision change Ears/Nose/Throat: No ear discharge, No nasal drainage, No recent hearing loss Respiratory: As described under HPI Cardiovascular: As described under HPI Gastrointestinal: No constipation, No diarrhea, No nausea, No vomiting Genitourinary: No dysuria, No hematuria, No urine frequency changes : No Musculoskeletal: back pain (chronic); No joint pain Skin: No rash, No ulcerations Psychiatric/Neurological: No focal weakness, No syncope Hematologic: No bleeding abnormalities All Other Systems Reviewed Negative Unless Noted: Yes ZID-Tbimno-Rvdkmk Hx Patient Social History Smoking Status: Never a Smoker Alcohol Use?: No Pt feels they are or have been: No Past Medical History PMH As described under Assessment. Family Medical History Family History: Asthma 19 MOTHER Dementia 19 MOTHER Diabetes mellitus 19 MOTHER G8 BROTHER FH: bladder cancer 19 MOTHER FH: prostate cancer G8 BROTHER FH: stroke 19 MOTHER Glaucoma 19 MOTHER Hypertension 19 MOTHER G8 BROTHER Kidney disease G8 BROTHER Myocardial infarction 19 MOTHER G8 BROTHER Allergies and Home Medications Allergies Coded Allergies: aspirin (Verified Adverse Reaction, Unknown, 10/24/17) States won't take it as is on warfarin Patient Home Medication List Home Medication List Reviewed: Yes Acetaminophen (Tylenol Extra Strength) 500 Mg Tablet, 1,000 MG PO Q4H PRN for PAIN-MILD OR TEMPATURE, (Reported) Entered as Reported by: RIA IBRAHIM on 10/24/17 1132 Last Action: Last Taken Edited Allopurinol (Allopurinol) 100 Mg Tablet, 100 MG PO DAILY, (Reported) Entered as Reported by: ANGELICA GARCIA on 10/24/17730 Last Action: Last Taken Edited Amlodipine Besylate (Amlodipine Besylate) 5 Mg Tablet, 10 MG PO DAILY, (Reported) Entered as Reported by: AUNG HOPPER on 08/07/22222 Last Action: New Order Cetirizine HCl/Pseudoephedrine (Zyrtec-D Tablet) 1 Each Tab.er.12h, 1 TAB PO BID PRN for CONGESTION, (Reported) Entered as Reported by: RIA IBRAHIM on 10/24/171131 Diltiazem HCl (Diltiazem 24Hr Cd) 180 Mg Cap.er.24h, 180 MG PO DAILY Prescribed by: SHARON DAVALOS on 10/28/171116 Last Action: Last Taken Edited Hydrochlorothiazide (Hydrochlorothiazide) 50 Mg Tablet, 50 MG PO DAILY, (Re ported) Entered as Reported by: AUNG HOPPER on 08/07/22222 Last Action: New Order Pentoxifylline (Pentoxifylline) 400 Mg Tablet.er, 400 MG PO BID, (Reported) Entered as Reported by: ANGELICA GARCIA on 10/24/17730 Pentoxifylline (Pentoxifylline) 400 Mg Tablet.er, 400 MG PO 1200 PRN for CIRCULATION, (Reported) Entered as Reported by: RIA IBRAHIM on 10/24/171131 Pentoxifylline (Pentoxifylline) 400 Mg Tablet.er, 400 MG PO TID, (Reported) Entered as Reported by: AUNG HOPPER on 08/07/22222 Last Action: New Order Warfarin Sodium (Warfarin Sodium) 6 Mg Tablet, 6 MG PO 1800, (Reported) Entered as Reported by: ANGELICA GARCIA on 10/24/17730 Warfarin Sodium (Warfarin Sodium) 5 Mg Tablet, 5 MG PO DAILY, (Reported) Entered as Reported by: AUNG HOPPER on 08/07/22222 Last Action: New Order Physical Exam-Cardiology Physical Exam Vital Signs/I&O 08/06/22 08/07/22 08/07/22 08/07/22 23:40 01:20 01:32 01:33 Temp 37.3 Pulse 116 114 106 123 Resp B/P (MAP) 148/99 133/77 147/99 (115) Pulse Ox 97 O2 Delivery Room Air Nasal Cannula O2 Flow Rate 4.00 08/07/22 08/07/22 08/07/22 08/07/22 01:35 01:45 01:57 02:00 Pulse 138 118 111 B/P (MAP) 140/104 (114) 142/76 (116) Pulse Ox 96 95 O2 Delivery Nasal Cannula Nasal Cannula Nasal Cannula O2 Flow Rate 4.00 4.00 4.00 08/07/22 08/07/22 08/07/22 08/07/22 02:15 02:23 02:24 02:29 Pulse 126 111 Resp 18 B/P (MAP) 142/91 (113) Pulse Ox 99 98 99 O2 Delivery Nasal Cannula Nasal Cannula Nasal Cannula Nasal Cannula O2 Flow Rate 4.00 2.00 2.00 2.00 08/07/22 08/07/22 08/07/22 08/07/22 02:30 02:33 02:45 03:00 Pulse 130 112 109 107 Resp B/P (MAP) 145/79 (101) 139/84 (100) 125/60 (89) Pulse Ox 95 99 95 97 O2 Delivery Nasal Cannula Nasal Cannula Nasal Cannula O2 Flow Rate 2.00 2.00 2.00 FiO2 28 08/07/22 08/07/22 08/07/22 08/07/22 03:09 03:32 03:55 04:00 Pulse 110 115 Resp 25 B/P (MAP) 125/60 110/74 (80) Pulse Ox 88 96 95 O2 Delivery Nasal Cannula Nasal Cannula Nasal Cannula O2 Flow Rate 4.00 4.00 4.00 08/07/22 08/07/22 08/07/22 08/07/22 05:00 06:00 07:00 07:00 Pulse 105 108 108 101 Resp B/P (MAP) 141/78 (99) 126/87 (100) 140/78 (107) Pulse Ox 95 95 99 O2 Delivery Nasal Cannula Nasal Cannula Nasal Cannula O2 Flow Rate 4.00 4.00 4.00 08/07/22 08/07/22 08/07/22 08/07/22 07:26 07:48 08:00 08:00 Pulse 102 Resp 26 B/P (MAP) 124/67 (86) Pulse Ox 94 94 O2 Delivery Nasal Cannula Nasal Cannula Nasal Cannula Nasal Cannula O2 Flow Rate 2.00 4.00 4.00 4.00 08/07/22 08/07/22 08/07/22 08/07/22 09:00 10:00 10:01 10:33 Pulse 98 92 98 Resp 30 B/P (MAP) 103/66 (72) 112/79 (85) 103/66 Pulse Ox 95 92 O2 Delivery Nasal Cannula Nasal Cannula Nasal Cannula O2 Flow Rate 4.00 4.00 2.00 08/07/22 00:00 Intake Total 1000 ml Balance 1000 ml Capillary Refill : Less Than 3 Seconds Constitutional: AAO x 3, well-developed, well-nourished HEENT: EOMI, hearing is well preserved; No xanthelasmas are seen Neck: carotid pulses are 2 + bilaterally, with good upstrokes Respiratory: No accessory muscle use; chest expansion is symmetric, chest is bilaterally symmetric, other (fair to good, bilateral air entry; scattered rhonchi) Cardiovascular: irregularly irregular, S1 and S2, systolic murmur (soft MOLLY at card base) Gastrointestinal: No tender; soft; No guarding, No rebound; audible bowel so unds Extremities: No clubbing, No cyanosis, No significant edema Neurologic/Psychiatric: oriented x 3, other (moves all limbs equally) Skin: normal color, warm/dry; No cool, No diaphoresis Data Review Labs Laboratory Tests 08/06/22 22:04: SARS-CoV-2 RNA (RT-PCR) Not Detected 08/06/22 22:05: White Blood Count 19.6H, Red Blood Count 5.31H, Hemoglobin 15.1, Hematocrit 46, Mean Corpuscular Volume 87, Mean Corpuscular Hemoglobin 28, Mean Corpuscular Hemoglobin Concent 33, Red Cell Distribution Width 15.0H, Platelet Count 303, Mean Platelet Volume 12.0, Immature Granulocyte % (Auto) 1, Neutrophils (%) (Auto) 71, Lymphocytes (%) (Auto) 13, Monocytes (%) (Auto) 14H, Eosinophils (%) (Auto) 0, Basophils (%) (Auto) 1, Neutrophils # (Auto) 14.0H, Lymphocytes # (Auto) 2.5, Monocytes # (Auto) 2.7H, Eosinophils # (Auto) 0.0, Basophils # (Auto) 0.1, Immature Granulocyte # (Auto) 0.2H, Neutrophils % (Manual) 58, Lymphocytes % (Manual) 21, Monocytes % (Manual) 13, Band Neutrophils 5, Reactive Lymphocytes 3, Sodium Level 138, Potassium Level 3.5L, Chloride Level 95L, Carbon Dioxide Level 25, Anion Gap 18H, Blood Urea Nitrogen 31H, Creatinine 1.59H, Estimat Glomerular Filtration Rate 33, BUN/Creatinine Ratio 19, Glucose Level 121H, Calcium Level 10.3H, Corrected Calcium 10.7H, Magnesium Level 1.7, Total Bilirubin 1.8H, Aspartate Amino Transf (AST/SGOT) 17, Alanine Aminotransferase (ALT/SGPT) 21, Alkaline Phosphatase 114, Myoglobin 130.1H, Troponin I < 0.028, B-Type Natriuretic Peptide 82.5, Total Protein 8.6H, Albumin 3.5 08/06/22 23:09: Prothrombin Time 16.1H, INR Comment 1.3, Activated Partial Thromboplast Time 34 08/06/22 23:21: Lactic Acid Level 1.36 08/07/22 00:20: Urine Color ORANGE, Urine Clarity CLEAR, Urine pH 5.5, Urine Specific [place] >=1.030, Urine Protein 2+H, Urine Glucose (UA) TRACEH, Urine Ketones NEGATIVE, Urine Nitrite NEGATIVE, Urine Bilirubin 2+H, Urine Urobilinogen >=8.0, Urine Leukocyte Esterase TRACEH, Urine RBC (Auto) NEGATIVE, Urine RBC NONE, Urine WBC 2-5, Urine Squamous Epithelial Cells 2-5, Urine Crystals NONE, Urine Bacteria LARGEH, Urine Casts PRESENT, Urine Hyaline Casts 0-2H, Urine Granular Casts 0-2H , Urine White Blood Cell Casts 0-2H, Urine Mucus SMALLH, Urine Culture Indicated YES 08/07/22 04:59: White Blood Count 19.0H, Red Blood Count 4.52, Hemoglobin 12.7, Hematocrit 40, Mean Corpuscular Volume 88, Mean Corpuscular Hemoglobin 28, Mean Corpuscular Hemoglobin Concent 32, Red Cell Distribution Width 14.8H, Platelet Count 275, Mean Platelet Volume 12.0, Immature Granulocyte % (Auto) 1, Neutrophils (%) (Auto) 72, Lymphocytes (%) (Auto) 12, Monocytes (%) (Auto) 15H, Eosinophils (%) (Auto) 0, Basophils (%) (Auto) 1, Neutrophils # (Auto) 13.7H, Lymphocytes # (Auto) 2.2, Monocytes # (Auto) 2.8H, Eosinophils # (Auto) 0.1, Basophils # (Auto) 0.1, Immature Granulocyte # (Auto) 0.2H, Sodium Level 138, Potassium Level 3.3L, Chloride Level 97L, Carbon Dioxide Level 28, Anion Gap 13, Blood Urea Nitrogen 32H, Creatinine 1.48H, Estimat Glomerular Filtration Rate 36, BUN/Creatinine Ratio 22, Glucose Level 111H, Calcium Level 9.1, Corrected Calcium 10.0, Phosphorus Level 3.8, Magnesium Level 1.6, Total Bilirubin 1.4H, Aspartate Amino Transf (AST/SGOT) 14, Alanine Aminotransferase (ALT/SGPT) 15, Alkaline Phosphatase 94, Total Protein 7.1, Albumin 2.9L, Triglycerides Level 95, Cholesterol Level 176, LDL Cholesterol Direct 104, VLDL Cholesterol 19, HDL Cholesterol 53 Laboratory Tests 08/06/22 22:05 08/07/22 04:59 A/P-Cardiology Assessment/Admission Diagnosis PAF with RVR Pneumonia UTI Hypertension Obesity with suspected DIANE Discussion and Recomendations * dilt for rate control * anticoag for stroke prophylaxis (she notes intolerance to DOACs, therefore on warfarin) * replenish K * monitor labs * treat infection * echo * sleep studies advised AWA GOMEZ MD FACP [facility] CCDS Aug 07, 2022 10:49
[2022-08-07] MEDS: guaiFENesin/DM (ROBITUSSIN DM) 10 ML UDC PO PRN ×3 (12:06→22:01)
[2022-08-07] MEDS: warFARin 5 MG (COUMADIN) TAB PO SCH (17:22)
--- NOTE | 2022-08-07 19:49 | Progress Note ---
Standard Progress Note Progress Notes/Assess & Plan Date Seen by a Provider: Aug 07, 2022 Time Seen by a Provider: 19:48 Progress/Assessment & Plan Patient has gout and takes allopurinal at home, Will order MD ADA Garcia JOSEPH K MD Aug 07, 2022 19:49
[2022-08-07] MEDS ORDERED: ALLOPURINOL 100 MG (ZYLOPRIM) TAB ONE (20:06)
[2022-08-07] MEDS ORDERED: ALLOPURINOL 100 MG (ZYLOPRIM) TAB PO SCH (20:15)
[2022-08-07] MEDS ORDERED: ALLOPURINOL 100 MG (ZYLOPRIM) TAB PO ONE (21:00)
[2022-08-07] MEDS: ENOXAPARIN 100 MG/1 ML (LOVENOX) SYR SC SCH (21:52)
[2022-08-08] MEDS: cefTRIAXone IV/IM 1,000 MG in NS (IVPB) 50 ML IV SCH (02:30)
[2022-08-08] MEDS: AZITHROMYCIN INJECTION 500 MG in NS (IVPB) 250 ML IV SCH (02:31)
[2022-08-08 04:43] LABS: BASOPHILS # (AUTO) 0.1 10^3/uL (0.0-0.1); BASOPHILS % (AUTO) 1 % (0-10); EOSINOPHILS # (AUTO) 0.3 10^3/uL (0.0-0.3); EOSINOPHILS % (AUTO) 2 % (0-10); HEMATOCRIT 39 % (35-52); HEMOGLOBIN 12.3 g/dL (11.5-16.0); LYMPHOCYTES # (AUTO) 2.2 10^3/uL (1.0-4.0); LYMPHOCYTES % (AUTO) 12 % (12-44); MEAN CORPUSCULAR HEMOGLOBIN 28 pg (25-34); MEAN CORPUSCULAR HGB CONC 32 g/dL (32-36); MEAN CORPUSCULAR VOLUME 90 fL (80-99); MEAN PLATELET VOLUME 11.9 fL (9.0-12.2); MONOCYTES # (AUTO) 2.4 10^3/uL (0.0-1.0); MONOCYTES % (AUTO) 13 % (0-12); NEUTROPHILS # (AUTO) 12.8 10^3/uL (1.8-7.8); NEUTROPHILS % (AUTO) 71 % (42-75); PLATELET COUNT 248 10^3/uL (130-400); WHITE BLOOD COUNT 17.9 10^3/uL (4.3-11.0)
[2022-08-08] MEDS: RT-ALBUTEROL SULF 2.5 MG/3 ML PRE-MIX VIAL INH PRN (04:49)
[2022-08-08 04:53] LABS: ALBUMIN 2.8 GM/DL (3.2-4.5); POTASSIUM 3.7 MMOL/L (3.6-5.0)
[2022-08-08 04:55] LABS: CALCIUM 8.9 MG/DL (8.5-10.1)
[2022-08-08 04:57] LABS: INR 1.4 (0.8-1.4); PROTHROMBIN TIME PATIENT 17.6 SEC (12.2-14.7)
[2022-08-08 04:58] LABS: BILIRUBIN,TOTAL 0.9 MG/DL (0.1-1.0)
[2022-08-08 04:59] LABS: PHOSPHORUS 2.9 MG/DL (2.3-4.7)
[2022-08-08 05:00] LABS: CREATININE SERUM 1.03 MG/DL (0.60-1.30)
[2022-08-08 05:02] LABS: MAGNESIUM 1.9 MG/DL (1.6-2.4)
[2022-08-08] MEDS: MAGNESIUM 1 GM/100 ML IVPB 100 ML IV SCH ×3 (05:17→05:24)
[2022-08-08] MEDS: inSUlin ASPART (NovoLOG) 1 UNIT/0.01 ML (CHARGE PER UNIT) SC SCH ×4 (05:17→22:13)
[2022-08-08] MEDS: POTASSIUM CL 10MEQ/50ML IVPB 50 ML IV SCH (05:17)
[2022-08-08] MEDS: KCL 20 MEQ TAB (K-DUR) PO SCH (05:17)
[2022-08-08] MEDS ORDERED: MAGNESIUM 1 GM/100 ML IVPB 200 ML IV ONE (05:21)
[2022-08-08] MEDS: RT-ALBUTEROL SULF 2.5 MG/3 ML PRE-MIX VIAL INH SCH ×5 (07:21→22:23)
[2022-08-08 07:27] VITALS: BP 135/67
[2022-08-08] MEDS: guaiFENesin/DM (ROBITUSSIN DM) 10 ML UDC PO PRN ×2 (07:54→16:52)
[2022-08-08] MEDS: ALLOPURINOL 100 MG (ZYLOPRIM) TAB PO SCH (07:54)
[2022-08-08] MEDS ORDERED: KCL 20 MEQ TAB (K-DUR) PO ONE (08:00)
[2022-08-08] MEDS: ENOXAPARIN 100 MG/1 ML (LOVENOX) SYR SC SCH ×2 (09:40→23:16)
[2022-08-08] MEDS ORDERED: predniSONE 20 MG TAB PO NR (09:45)
--- NOTE | 2022-08-08 09:57 | Progress Note - Hospitalist ---
Subjective HPI/CC On Admission Date Seen by Provider: Aug 08, 2022 Is 77-year-old -[place] female with past medical history of hypertension and atrial fibrillation who presented to the emergency department due to shortness of breath. She had recently been on a vacation to [facility] and started feeling poorly so decided to drive back yesterday so that she can be home and evaluated here. When she presented to the emergency department she was found to be quite hypoxic with sats in the 60s and was tachycardic with a rate in the 140s. She states that this is happened before when she has had pneumonia she is developed A-fib with RVR. She reports feeling much better today though is still somewhat short of breath and coughing. Denies any lower extremity edema or chest pain. Chest x-ray actually did not show any edema and her BNP was 82. She was found to have a leukocytosis and met sepsis criteria. It was concerning for urinary tract infection. She was placed empirically on antibiotics to cover for both pneumonia and UTI and she was admitted to the ICU on Cardizem drip. Subjective/Events-last exam Pt reports doing better today. Breathing better but wheezing today. No other complaints. Eating better as well. Still on cardizem gtt. Focused Exam Lactate Level 08/06/22 23:21: Lactic Acid Level 1.36 Objective Exam Vital Signs Vital Signs Date Time Temp Pulse Resp B/P (MAP) Pulse Ox O2 Delivery O2 Flow Rate FiO2 08/08/22 09:00 87 134/55 (80) 90 Nasal Cannula 3.00 08/08/22 08:18 36.9 08/08/22 07:27 36 08/08/22 06:00 21 Capillary Refill : Less Than 3 Seconds General Appearance: No Apparent Distress, WD/WN Respiratory: Lungs Clear, No Respiratory Distress Cardiovascular: No Murmur, Irregularly Irregular Gastrointestinal: Normal Bowel Sounds, Soft Neurologic/Psychiatric: Alert, Oriented x3 Results/Procedures Lab Laboratory Tests 08/08/22 04:30 Patient resulted labs reviewed. Imaging: Reviewed Imaging Report Assessment/Plan Assessment and Plan Assess & Plan/Chief Complaint a fib with RVR Chronic anticoagulation HTN Acute hypoxic respiratory failure Appears to be in sinus now Cardiology consulted, appreciate recs Cntinue Warfarin but INR a little low (1.4) so continue Lovenox until therapeutic Telemetry Hold home antihypertensives as BP controlled with gtt Takes Symbicort at home- sub for Breo while here Add prednisone for wheezing MAT protocol Wean as able Sepsis due to UTI- POA Cover with abx to cover for CAP as well Await urine culture DVT ppx: Lovenox and Warfarin as able Critical Care Critically Ill Patient TABITHA FLORES MD Aug 08, 2022 09:57
[2022-08-08] MEDS: FLUTICASONE/VILANTEROL 200 MCG 14'S (BREO) IH SCH (10:42)
--- NOTE | 2022-08-08 12:13 | Progress Note - Cardiology ---
Cardiology SOAP Progress Note Subjective: Gen weakness and malaise and dizziness are improving No cp or palp or syncope No n/v/d No swelling No focal weakness Objective: I&O/Vital Signs 08/08/22 08/08/22 08/08/22 08/08/22 01:00 01:45 02:00 03:00 Pulse 80 85 78 87 B/P (MAP) 140/65 (90) 122/68 (86) 136/84 (101) Pulse Ox 91 93 99 O2 Delivery Nasal Cannula Nasal Cannula Nasal Cannula O2 Flow Rate 3.00 3.00 3.00 08/08/22 08/08/22 08/08/22 08/08/22 03:45 03:45 04:00 04:50 Temp 37.0 Pulse 86 Resp 36 B/P (MAP) 153/79 (103) Pulse Ox 94 94 O2 Delivery Nasal Cannula Nasal Cannula Nasal Cannula Nasal Cannula O2 Flow Rate 4.00 4.00 4.00 4.00 08/08/22 08/08/22 08/08/22 08/08/22 05:00 06:00 07:00 07:00 Pulse 88 77 81 79 Resp 24 21 B/P (MAP) 121/85 (97) 132/70 (90) 138/68 (101) Pulse Ox 97 93 94 O2 Delivery Nasal Cannula Nasal Cannula Nasal Cannula O2 Flow Rate 4.00 4.00 4.00 08/08/22 08/08/22 08/08/22 08/08/22 07:21 07:27 07:32 07:36 Temp 37.0 Pulse 80 Pulse Ox 97 97 O2 Delivery Nasal Cannula Nasal Cannula Nasal Cannula O2 Flow Rate 4.00 3.00 3.00 FiO2 36 08/08/22 08/08/22 08/08/22 08/08/22 08:00 08:18 08:55 09:00 Temp 36.9 Pulse 86 87 B/P (MAP) 132/99 (109) 134/55 (80) Pulse Ox 91 96 90 O2 Delivery Nasal Cannula Nasal Cannula Nasal Cannula O2 Flow Rate 3.00 3.00 3.00 08/08/22 08/08/22 08/08/22 08/08/22 10:00 10:42 10:47 11:00 Pulse 92 87 B/P (MAP) 133/67 (95) 134/89 (107) Pulse Ox 94 93 91 O2 Delivery Nasal Cannula Nasal Cannula Nasal Cannula Nasal Cannula O2 Flow Rate 3.00 3.00 3.00 3.00 08/08/22 12:00 Temp 35.8 08/08/22 00:00 Intake Total 3050 ml Output Total 950 ml Balance 2100 ml Weight (Pounds): 209 Weight (Ounces): 8.0 Weight (Calculated Kilograms): 95.962107 Constitutional: AAO x 3, well-developed, well-nourished Respiratory: No accessory muscle use; chest expansion is symmetric, chest is bilaterally symmetric, other (fair to good, bilateral air entry; scattered rhonchi) Cardiovascular: irregularly irregular, S1 and S2, systolic murmur (soft MOLLY at card base) Gastrointestional: No tender; soft; No guarding, No rebound; audible bowel sounds Extremities: No clubbing, No cyanosis, No significant edema Neurologic/Psychiatric: oriented x 3, other (moves all limbs equally) Skin: normal color, warm/dry; No cool, No diaphoresis Results/Procedures: Labs Laboratory Tests 08/07/22 16:37: Glucometer 134H 08/07/22 20:14: Glucometer 137H 08/08/22 04:30: White Blood Count 17.9H, Red Blood Count 4.34, Hemoglobin 12.3, Hematocrit 39, Mean Corpuscular Volume 90, Mean Corpuscular Hemoglobin 28, Mean Corpuscular Hemoglobin Concent 32, Red Cell Distribution Width 15.1H, Platelet Count 248, Mean Platelet Volume 11.9, Immature Granulocyte % (Auto) 1, Neutrophils (%) (Auto) 71, Lymphocytes (%) (Auto) 12, Monocytes (%) (Auto) 13H, Eosinophils (%) (Auto) 2, Basophils (%) (Auto) 1, Neutrophils # (Auto) 12.8H, Lymphocytes # (Auto) 2.2, Monocytes # (Auto) 2.4H, Eosinophils # (Auto) 0.3, Basophils # (Auto) 0.1, Immature Granulocyte # (Auto) 0.2H, Prothrombin Time 17.6H, INR Comment 1.4, Sodium Level 139, Potassium Level 3.7, Chloride Level 102, Carbon Dioxide Level 25, Anion Gap 12, Blood Urea Nitrogen 19H, Creatinine 1.03, Estimat Glomerular Filtration Rate 56, BUN/Creatinine Ratio 18, Glucose Level 110H, Calcium Level 8.9, Corrected Calcium 9.9, Phosphorus Level 2.9, Magnesium Level 1.9, Total Bilirubin 0.9, Aspartate Amino Transf (AST/SGOT) 17, Alanine Aminotransferase (ALT/SGPT) 15, Alkaline Phosphatase 94, Total Protein 7.0, Alb umin 2.8L 08/08/22 10:58: Glucometer 141H Microbiology 08/07/22 MRSA Screen - Final, Complete MRSA not isolated 08/06/22 Blood Culture - Preliminary, Resulted No growth Laboratory Tests 08/06/22 22:05 08/07/22 04:59 08/08/22 04:30 A/P: Assessment: PAF with RVR - echo on 08/07/22: LVEF 55-60%, mild conc LVH, AoV sclerosis w/o stenosis, PASP 50-55 mmHg Pneumonia UTI Hypertension Obesity with suspected DIANE Mod pulm htn - may be secondary to untreated DIANE Plan: * change dilt to oral * anticoag for stroke prophylaxis (she notes intolerance to DOACs, therefore on warfarin) * continue enoxaparin until therapeutic on oral warfarin * monitor labs * treat infection * sleep studies advised * pulm consult advised for pulm htn AWA GOMEZ MD FACP [facility] CCDS Aug 08, 2022 12:13
--- NOTE | 2022-08-08 12:21 | Tele-ICU Progress Note ---
Subjective Date Seen by a Provider: Aug 08, 2022 Time Seen by a Provider: 12:20 Subjective/Events-last exam (Tele-ICU Physician , Progress Note ) Service provided via interactive audio and video telecommunications E-CARE system to a patient admitted to ICU bed in [facility]. Patient is seen today due to persistent need of ICU care Available chart/ vitals / labs / Images reviewed Video assessment done using teleICU camera, rest of exam as per RN Discussed with RN Events overnight : Afebrile hemodynamically stable Respiratory - 4 l I/O = Drips: cadrdizem , NS Pressors- no Hospital course: (08/07) 77/F- HYPOXIC, AFIB RVR, off meds for 2 + days. oxymask in the er now 4l nc icu, uti and pna. Cardizem gtt. A/P A fib RVR ( known a fib --Cardizem drip 5 , to resume home cardizem po ? - cards consulted cardiology service - ac with lovenox , - PRA on coumadin with INR <2 -ef 55% ECHO 08/07/22 PNA , possible - cont abx for now Acute hypoxic respiratory failure - due to PNA , but xr with suspected chronic intrerst. changes - if more hypoxixc will try diuresis - on 3-4 L o2 with desat with any movements H/O aSTHAM - REPORTED WHEESING - ADDED PREDNISONE po 08/08 Puln HTN - by ECHO 08/07/22 - RVSP 55 Mm HG VERN - resolved , STOP hydration Lines : , (Central Line Necessity Reviewed) Sierra: OG: Nutrition: po Analgesia: Anxiety/ delirium VTE Prophylaxis: full dose Lovenox. Stress Ulcer Prophylaxis: na Plans in collaboration with bedside consultants and IM MDs. Discussed with RN to reach out if any questions or concerns Case and care daily discussed on multidisciplinary rounds ( RN, PharmD, Vessel Manager , Respiratory Therapy, print room worker ) A total of 10 minutes of critical care time was devoted to this patient today, required to treat and/or prevent further deterioration of critical care condition ( as above ) . I am remotely monitoring this patient from another state. I am unable to do the bedside exam, and history/physical and pertinent information is taken from other notes in the computer and bedside staff. Sepsis Event Evaluation Height, Weight, BMI Height: 5'3.00" Weight: 209lbs. 8.0oz. 95.841933zv; 42.12 BMI Method:Stated Focused Exam Lactate Level 08/06/22 23:21: Lactic Acid Level 1.36 Exam Exam Patient acknowledged, consented, and participated in this virtual visit which was conducted using real time audio/video Vital Signs Date Time Temp Pulse Resp B/P (MAP) Pulse Ox O2 Delivery O2 Flow Rate FiO2 08/08/22 12:00 91 138/74 (95) 92 Nasal Cannula 3.00 08/08/22 12:00 35.8 08/08/22 11:00 87 134/89 (107) 91 Nasal Cannula 3.00 08/08/22 10:47 Nasal Cannula 3.00 08/08/22 10:42 93 Nasal Cannula 3.00 08/08/22 10:00 92 133/67 (95) 94 Nasal Cannula 3.00 08/08/22 09:00 87 134/55 (80) 90 Nasal Cannula 3.00 08/08/22 08:55 96 Nasal Cannula 3.00 08/08/22 08:18 36.9 08/08/22 08:00 86 132/99 (109) 91 Nasal Cannula 3.00 08/08/22 07:36 Nasal Cannula 3.00 08/08/22 07:32 Nasal Cannula 3.00 08/08/22 07:27 37.0 80 97 36 08/08/22 07:21 97 Nasal Cannula 4.00 08/08/22 07:00 79 08/08/22 07:00 81 138/68 (101) 94 Nasal Cannula 4.00 08/08/22 06:00 77 21 132/70 (90) 93 Nasal Cannula 4.00 08/08/22 05:00 88 24 121/85 (97) 97 Nasal Cannula 4.00 08/08/22 04:50 Nasal Cannula 4.00 08/08/22 04:00 86 36 153/79 (103) 94 Nasal Cannula 4.00 08/08/22 03:45 37.0 Nasal Cannula 4.00 08/08/22 03:45 94 Nasal Cannula 4.00 08/08/22 03:00 87 136/84 (101) 99 Nasal Cannula 3.00 08/08/22 02:00 78 122/68 (86) 93 Nasal Cannula 3.00 08/08/22 01:45 85 08/08/22 01:00 80 140/65 (90) 91 Nasal Cannula 3.00 08/08/22 00:00 70 15 112/46 (68) 100 Nasal Cannula 3.00 08/07/22 23:55 92 Nasal Cannula 3.00 08/07/22 23:00 86 16 116/61 (79) 93 Nasal Cannula 3.00 08/07/22 22:00 84 23 112/64 (80) 91 Nasal Cannula 3.00 08/07/22 21:59 80 123/75 08/07/22 21:00 92 142/68 (92) 90 Nasal Cannula 3.00 08/07/22 20:40 Nasal Cannula 3.00 08/07/22 20:00 78 26 135/52 (79) 92 Nasal Cannula 3.00 08/07/22 19:35 93 Nasal Cannula 3.00 08/07/22 19:00 36.8 90 22 139/71 (93) 92 Nasal Cannula 3.00 08/07/22 18:53 86 08/07/22 18:00 93 152/71 (95) 93 Nasal Cannula 3.00 08/07/22 17:00 83 137/68 (74) 94 Nasal Cannula 3.00 08/07/22 16:39 94 Nasal Cannula 3.00 08/07/22 16:38 36.9 08/07/22 16:00 89 135/66 (90) 94 Nasal Cannula 3.00 08/07/22 15:00 93 21 94 Nasal Cannula 3.00 08/07/22 14:00 90 28 91 Nasal Cannula 3.00 08/07/22 13:18 Nasal Cannula 3.00 08/07/22 13:00 97 34 144/71 (104) 91 Nasal Cannula 2.00 08/07/22 13:00 96 08/07/22 12:59 Nasal Cannula 4.00 I & O 08/08/22 07:00 Intake Total 4395 ml Output Total 1525 ml Balance 2870 ml Height & Weight Height: 5'3.00" Weight: 209lbs. 8.0oz. 95.226561oj; 42.12 BMI Method:Stated General Appearance: No Apparent Distress, WD/WN Respiratory: Lungs Clear, No Respiratory Distress Cardiovascular: No Murmur, Irregularly Irregular Capillary Refill: Less Than 3 Seconds Gastrointestinal: normal bowel sounds, non tender, soft Extremity: No Calf Tenderness, No Pedal Edema Neurologic/Psychiatric: Alert, Oriented x3 Results Lab Laboratory Tests 08/06/22 22:05 08/07/22 04:59 08/08/22 04:30 Assessment/Plan Assessment/Plan 1 SHAD WHITE MD Aug 08, 2022 12:21
[2022-08-08] MEDS: warFARin 5 MG (COUMADIN) TAB PO SCH (16:52)
[2022-08-09] MEDS: AZITHROMYCIN INJECTION 500 MG in NS (IVPB) 250 ML IV SCH (02:29)
[2022-08-09] MEDS: cefTRIAXone IV/IM 1,000 MG in NS (IVPB) 50 ML IV SCH (02:29)
[2022-08-09] MEDS: guaiFENesin/DM (ROBITUSSIN DM) 10 ML UDC PO PRN ×4 (02:35→20:03)
[2022-08-09] MEDS: RT-ALBUTEROL SULF 2.5 MG/3 ML PRE-MIX VIAL INH SCH ×6 (02:55→22:08)
[2022-08-09 04:25] LABS: BASOPHILS # (AUTO) 0.1 10^3/uL (0.0-0.1); BASOPHILS % (AUTO) 0 % (0-10); EOSINOPHILS % (AUTO) 0 % (0-10); HEMATOCRIT 36 % (35-52); HEMOGLOBIN 11.2 g/dL (11.5-16.0); LYMPHOCYTES # (AUTO) 1.6 10^3/uL (1.0-4.0); LYMPHOCYTES % (AUTO) 9 % (12-44); MEAN CORPUSCULAR HEMOGLOBIN 28 pg (25-34); MEAN CORPUSCULAR HGB CONC 31 g/dL (32-36); MEAN CORPUSCULAR VOLUME 90 fL (80-99); MEAN PLATELET VOLUME 12.2 fL (9.0-12.2); MONOCYTES # (AUTO) 1.7 10^3/uL (0.0-1.0); MONOCYTES % (AUTO) 9 % (0-12); NEUTROPHILS % (AUTO) 81 % (42-75); PLATELET COUNT 291 10^3/uL (130-400); WHITE BLOOD COUNT 18.6 10^3/uL (4.3-11.0)
[2022-08-09 04:36] LABS: ALBUMIN 2.8 GM/DL (3.2-4.5); POTASSIUM 4.1 MMOL/L (3.6-5.0)
[2022-08-09 04:37] LABS: CALCIUM 9.6 MG/DL (8.5-10.1)
[2022-08-09 04:39] LABS: TOTAL PROTEIN 7.2 GM/DL (6.4-8.2)
[2022-08-09 04:40] LABS: BILIRUBIN,TOTAL 0.5 MG/DL (0.1-1.0)
[2022-08-09 04:42] LABS: CREATININE SERUM 1.27 MG/DL (0.60-1.30); PHOSPHORUS 3.4 MG/DL (2.3-4.7)
[2022-08-09] MEDS: POTASSIUM CL 10MEQ/50ML IVPB 50 ML IV SCH (04:45)
[2022-08-09] MEDS ORDERED: ACETAMINOPHEN 325 MG TABLET PO ONE (04:45)
[2022-08-09 04:46] LABS: MAGNESIUM 2.3 MG/DL (1.6-2.4)
[2022-08-09] MEDS: KCL 20 MEQ TAB (K-DUR) PO SCH (04:46)
[2022-08-09] MEDS: MAGNESIUM 1 GM/100 ML IVPB 100 ML IV SCH (04:46)
[2022-08-09] MEDS: inSUlin ASPART (NovoLOG) 1 UNIT/0.01 ML (CHARGE PER UNIT) SC SCH ×4 (04:46→20:04)
[2022-08-09] MEDS: predniSONE 20 MG TAB PO SCH (06:48)
[2022-08-09] MEDS: FLUTICASONE/VILANTEROL 200 MCG 14'S (BREO) IH SCH (07:00)
[2022-08-09 07:31] LABS: INR 1.6 (0.8-1.4); PROTHROMBIN TIME PATIENT 19.4 SEC (12.2-14.7)
--- NOTE | 2022-08-09 08:31 | Progress Note - Cardiology ---
Cardiology SOAP Progress Note Subjective: Sitting up in bed Continues to feel SOB, but improving Continues to have frequent cough No c/o CP or palpitations No c/o n/v/d Objective: I&O/Vital Signs 08/10/22 08/10/22 08/10/22 08/11/22 22:00 22:04 23:59 00:00 Pulse 78 78 Resp 20 10 B/P (MAP) 138/74 (95) 142/71 (94) Pulse Ox 94 97 96 96 O2 Delivery High Flow N/C High Flow N/C High Flow N/C High Flow N/C O2 Flow Rate 2.00 0.50 2.00 2.00 08/11/22 08/11/22 08/11/22 08/11/22 02:00 03:02 04:00 04:00 Pulse 74 81 Resp 20 B/P (MAP) 134/70 (89) 139/77 (102) Pulse Ox 99 99 93 96 O2 Delivery High Flow N/C High Flow N/C High Flow N/C High Flow N/C O2 Flow Rate 2.00 0.50 2.00 2.00 08/11/22 08/11/22 08/11/22 06:00 06:56 07:55 Temp 36.0 Pulse 89 82 Resp 17 B/P (MAP) 150/67 (94) 137/89 (105) Pulse Ox 100 100 100 O2 Delivery High Flow N/C High Flow N/C Nasal Cannula O2 Flow Rate 2.00 0.50 2.00 08/11/22 00:00 Intake Total 1470 ml Output Total 300 ml Balance 1170 ml Weight (Pounds): 209 Weight (Ounces): 8.0 Weight (Calculated Kilograms): 95.662262 Constitutional: AAO x 3, well-developed, well-nourished Respiratory: No accessory muscle use; chest expansion is symmetric, chest is bilaterally symmetric, other (fair to good, bilateral air entry; scattered rhonchi) Cardiovascular: irregularly irregular, S1 and S2, systolic murmur (soft MOLLY at card base) Gastrointestional: No tender; soft; No guarding, No rebound; audible bowel sounds Extremities: No clubbing, No cyanosis, No significant edema Neurologic/Psychiatric: oriented x 3, other (moves all limbs equally) Skin: normal color, warm/dry; No cool, No diaphoresis Results/Procedures: Labs Laboratory Tests 08/10/22 11:04: Glucometer 120H 08/10/22 15:36: Glucometer 140H 08/10/22 20:06: Glucometer 128H 08/11/22 03:27: White Blood Count 14.1H, Red Blood Count 4.11, Hemoglobin 11.6, Hematocrit 37, Mean Corpuscular Volume 90, Mean Corpuscular Hemoglobin 28, Mean Corpuscular Hemoglobin Concent 31L, Red Cell Distribution Width 15.4H, Platelet Count 340, Mean Platelet Volume 11.7, Immature Granulocyte % (Auto) 2, Neutrophils (%) (Auto) 70, Lymphocytes (%) (Auto) 19, Monocytes (%) (Auto) 8, Eosinophils (%) (Auto) 0, Basophils (%) (Auto) 0, Neutrophils # (Auto) 9.8H, Lymphocytes # (Auto) 2.7, Monocytes # (Auto) 1.2H, Eosinophils # (Auto) 0.1, Basophils # (Auto) 0.1, Immature Granulocyte # (Auto) 0.3H, Sodium Level 141, Potassium Level 4.5, Chloride Level 102, Carbon Dioxide Level 29, Anion Gap 10, Blood Urea Nitrogen 27H, Creatinine 1.02, Estimat Glomerular Filtration Rate 57, BUN/Creatinine Ratio 26, Glucose Level 90, Calcium Level 9.6, Corrected Calcium 10.6H, Phosphorus Level 3.1, Magnesium Level 1.9, Total Bilirubin 0.3, Aspartate Amino Transf (AST/SGOT) 19, Alanine Aminotransferase (ALT/SGPT) 17, Alkaline Phosphatase 81, Total Protein 6.9, Albumin 2.8L Microbiology 08/07/22 MRSA Screen - Final, Complete MRSA not isolated 08/07/22 Urine Culture - Final, Complete Mixed Bacterial Joanie 08/06/22 Blood Culture - Preliminary, Resulted No growth A/P: Assessment: PAF with RVR - echo on 08/07/22: LVEF 55-60%, mild conc LVH, AoV sclerosis w/o stenosis, PASP 50-55 mmHg - warfarin for stroke prophylaxis - INR sub-therapeutic (Lovenox coverage until INR greater than 2.0) Pneumonia - management per medical services UTI - management per medical services Hypertension - controlled Obesity with suspected DIANE Mod pulm htn - may be secondary to untreated DIANE Plan: * Continue oral Cardizem * anticoag for stroke prophylaxis (she notes intolerance to DOACs, therefore on warfarin) * continue enoxaparin until therapeutic on oral warfarin * monitor labs * Management of UTI and pneumonia per medical services * sleep studies advised * pulm consult advised for pulm htn NOHEMI MON Aug 09, 2022 08:31
[2022-08-09] MEDS: ALLOPURINOL 100 MG (ZYLOPRIM) TAB PO SCH (08:32)
[2022-08-09] MEDS: CEFDINIR 300 MG (OMNICEF) CAP PO SCH ×2 (08:32→20:03)
--- NOTE | 2022-08-09 09:02 | Tele-ICU Progress Note ---
Subjective Date Seen by a Provider: Aug 09, 2022 Time Seen by a Provider: 09:02 Subjective/Events-last exam (Tele-ICU Physician , Progress Note ) Service provided via interactive audio and video telecommunications E-CARE s dottie to a patient admitted to ICU bed in [facility]. Patient is seen today due to persistent need of ICU care Available chart/ vitals / labs / Images reviewed Video assessment done using teleICU camera, rest of exam as per RN She is a 77-year-old -[place] female with past medical history of hypertension type 2 diabetes mellitus and atrial fibrillation presented with a complaint of shortness of breath, cough, fatigue and palpitations. Apparently she got sick couple of days prior to this admission when she was traveling to with family and had a low-grade fever. She has not been taking her medications today and yesterday. She is supposed to be taking Coumadin but not taking due to her illness. In the emergency room she is found to have a hypoxia and atrial fibrillation with rapid ventricular rate with a heart rate of 140s. She required 4 L of oxygen via facemask which brought her oxygen saturation to 96%. She is started on a Cardizem drip and admitted to the intensive care unit. Chest x-ray showed bilateral infiltrate suggestive of pneumonia. 08/09/22 today she is on 10L HFN RVR controlled. no acute respiratory distress. Blood c/s negative. Impression 1. Atrial fibrillation with rapid ventricular rate controlled now on oral Cardizem 2. Bilateral pneumonia slowly improving 3. Acute kidney injury improving 4. Acute hypoxic respiratory failure Recommendation 1. Continue Cardizem drip per cardiology service 2. Restart on anticoagulant therapy and bridge with Lovenox. 3. IV antibiotics. 4. DVT prophylaxis and stroke prophylaxis with full dose Lovenox. 5. Supplemental oxygen 6. We will give her bronchodilator therapy. 7. Hydrate patient with normal saline and monitor BUN and creatinine. Coordination of care with primary care physician and bedside consultants. I am remotely monitoring this patient from Tele icu station in [place]. I am unable to do the bedside exam, and history/physical and pertinent information is taken from other notes in the computer and bedside staff. Certain portions of this document may have been dictated utilizing voice recognition technology such as [employer]. Inherent to this technology, typographical and grammatical errors may exist. As much as I am diligent to identify and correct to these mistakes, some errors may remain in the document. Critical care time devoted to this patient today is approximately is 26 minutes-- Sepsis Event Evaluation Height, Weight, BMI Height: 5'3.00" Weight: 209lbs. 8.0oz. 95.112372yq; 42.97 BMI Method:Stated Focused Exam Lactate Level 08/06/22 23:21: Lactic Acid Level 1.36 Exam Exam Patient acknowledged, consented, and participated in this virtual visit which was conducted using real time audio/video Vital Signs Date Time Temp Pulse Resp B/P (MAP) Pulse Ox O2 Delivery O2 Flow Rate FiO2 08/09/22 08:22 92 High Flow N/C 3.00 08/09/22 08:17 High Flow N/C 3.00 08/09/22 08:00 79 23 121/58 (79) 97 High Flow N/C 2.00 08/09/22 07:40 36.1 08/09/22 07:18 80 08/09/22 07:10 High Flow N/C 2.00 08/09/22 07:09 High Flow N/C 2.00 08/09/22 07:08 95 High Flow N/C 2.00 08/09/22 07:00 68 13 139/61 (87) 99 High Flow N/C 3.00 08/09/22 07:00 99 High Flow N/C 3.00 08/09/22 06:00 70 16 103/61 (75) 99 Nasal Cannula 3.00 08/09/22 05:00 80 28 116/66 (83) 96 Nasal Cannula 3.00 08/09/22 04:00 86 28 136/77 (96) 96 Nasal Cannula 3.00 08/09/22 03:45 95 High Flow N/C 3.00 08/09/22 03:34 36.0 08/09/22 03:00 78 12 98/57 (76) 96 Nasal Cannula 3.00 08/09/22 02:00 78 24 118/58 (83) 99 Nasal Cannula 3.00 08/09/22 01:00 73 12 103/52 (69) 97 Nasal Cannula 3.00 08/09/22 01:00 73 08/09/22 00:00 84 12 104/57 (76) 96 Nasal Cannula 3.00 08/08/22 23:15 96 High Flow N/C 3.00 08/08/22 23:00 86 15 126/59 (83) 94 Nasal Cannula 3.00 08/08/22 22:24 93 Nasal Cannula 3.00 08/08/22 22:00 78 147/80 (95) 94 Nasal Cannula 3.00 08/08/22 21:00 82 125/60 (83) 94 Nasal Cannula 3.00 08/08/22 20:00 82 138/69 (95) 95 Nasal Cannula 3.00 08/08/22 19:55 94 Nasal Cannula 3.00 08/08/22 19:35 94 Nasal Cannula 3.00 08/08/22 19:00 76 08/08/22 19:00 36.5 77 24 126/60 (82) 95 Nasal Cannula 3.00 08/08/22 18:00 74 17 130/72 (90) 93 Nasal Cannula 3.00 08/08/22 17:00 76 24 131/67 (93) 89 Nasal Cannula 3.00 08/08/22 16:00 36.3 08/08/22 16:00 80 25 137/66 (93) 91 Nasal Cannula 3.00 08/08/22 15:34 95 Nasal Cannula 3.00 08/08/22 15:00 86 130/63 (90) 94 Nasal Cannula 3.00 08/08/22 14:42 95 Nasal Cannula 3.00 08/08/22 14:00 96 38 129/67 (94) 94 Nasal Cannula 3.00 08/08/22 13:00 90 30 129/84 (103) 94 Nasal Cannula 3.00 08/08/22 12:52 99 08/08/22 12:00 91 138/74 (95) 92 Nasal Cannula 3.00 08/08/22 12:00 35.8 08/08/22 12:00 94 Nasal Cannula 3.00 08/08/22 11:00 87 134/89 (107) 91 Nasal Cannula 3.00 08/08/22 10:47 Nasal Cannula 3.00 08/08/22 10:42 93 Nasal Cannula 3.00 08/08/22 10:00 92 133/67 (95) 94 Nasal Cannula 3.00 I & O 08/09/22 06:59 Intake Total 3020 ml Output Total 850 ml Balance 2170 ml Height & Weight Height: 5'3.00" Weight: 209lbs. 8.0oz. 95.883266qp; 42.97 BMI Method:Stated General Appearance: No Apparent Distress, WD/WN Respiratory: Lungs Clear, No Respiratory Distress Cardiovascular: No Murmur, Irregularly Irregular Capillary Refill: Less Than 3 Seconds Gastrointestinal: normal bowel sounds, non tender, soft Extremity: No Calf Tenderness, No Pedal Edema Neurologic/Psychiatric: Alert, Oriented x3 Results Lab Laboratory Tests 08/08/22 04:30 08/09/22 03:56 Assessment/Plan Assessment/Plan as above Critical Care: Critically Ill Patient Time spent with patient (mins): 26 KEHINDE SIMMONS MD Aug 09, 2022 09:02
--- NOTE | 2022-08-09 09:50 | Progress Note - Cardiology ---
Cardiology SOAP Progress Note Subjective: No cp or palp or syncope or shortness of breath Gen malaise and weakness present No focal weakness No n/v/d Objective: I&O/Vital Signs 08/08/22 08/08/22 08/08/22 08/08/22 22:00 22:24 23:00 23:15 Pulse 78 86 Resp 15 B/P (MAP) 147/80 (95) 126/59 (83) Pulse Ox 94 93 94 96 O2 Delivery Nasal Cannula Nasal Cannula Nasal Cannula High Flow N/C O2 Flow Rate 3.00 3.00 3.00 3.00 08/09/22 08/09/22 08/09/22 08/09/22 00:00 01:00 01:00 02:00 Pulse 84 73 73 78 Resp 12 12 24 B/P (MAP) 104/57 (76) 103/52 (69) 118/58 (83) Pulse Ox 96 97 99 O2 Delivery Nasal Cannula Nasal Cannula Nasal Cannula O2 Flow Rate 3.00 3.00 3.00 08/09/22 08/09/22 08/09/22 08/09/22 03:00 03:34 03:45 04:00 Temp 36.0 Pulse 78 86 Resp 12 28 B/P (MAP) 98/57 (76) 136/77 (96) Pulse Ox 96 95 96 O2 Delivery Nasal Cannula High Flow N/C Nasal Cannula O2 Flow Rate 3.00 3.00 3.00 08/09/22 08/09/22 08/09/22 08/09/22 05:00 06:00 07:00 07:00 Pulse 80 70 68 Resp 28 16 13 B/P (MAP) 116/66 (83) 103/61 (75) 139/61 (87) Pulse Ox 96 99 99 99 O2 Delivery Nasal Cannula Nasal Cannula High Flow N/C High Flow N/C O2 Flow Rate 3.00 3.00 3.00 3.00 08/09/22 08/09/22 08/09/22 08/09/22 07:08 07:09 07:10 07:18 Pulse 80 B/P (MAP) Pulse Ox 95 O2 Delivery High Flow N/C High Flow N/C High Flow N/C O2 Flow Rate 2.00 2.00 2.00 08/09/22 08/09/22 08/09/22 08/09/22 07:40 08:00 08:17 08:22 Temp 36.1 Pulse 79 Resp 23 B/P (MAP) 121/58 (79) Pulse Ox 97 92 O2 Delivery High Flow N/C High Flow N/C High Flow N/C O2 Flow Rate 2.00 3.00 3.00 08/09/22 09:00 Pulse 81 Resp 29 B/P (MAP) 126/76 (93) Pulse Ox 95 O2 Delivery High Flow N/C O2 Flow Rate 3.00 08/09/22 00:00 Intake Total 1320 ml Output Total 400 ml Balance 920 ml Weight (Pounds): 209 Weight (Ounces): 8.0 Weight (Calculated Kilograms): 95.385653 Constitutional: AAO x 3, well-developed, well-nourished Respiratory: No accessory muscle use; chest expansion is symmetric, chest is bilaterally symmetric, other (fair to good, bilateral air entry; scattered rhonchi) Cardiovascular: irregularly irregular, S1 and S2, systolic murmur (soft MOLLY at card base) Gastrointestional: No tender; soft; No guarding, No rebound; audible bowel sounds Extremities: No clubbing, No cyanosis, No significant edema Neurologic/Psychiatric: oriented x 3, other (moves all limbs equally) Skin: normal color, warm/dry; No cool, No diaphoresis Results/Procedures: Labs Laboratory Tests 08/08/22 10:58: Glucometer 141H 08/08/22 15:43: Glucometer 145H 08/08/22 20:54: Glucometer 167H 08/08/22 22:11: Glucometer 148H 08/09/22 03:56: White Blood Count 18.6H, Red Blood Count 4.00, Hemoglobin 11.2L, Hematocrit 36, Mean Corpuscular Volume 90, Mean Corpuscular Hemoglobin 28, Mean Corpuscular Hemoglobin Concent 31L, Red Cell Distribution Width 15.3H, Platelet Count 291, Mean Platelet Volume 12.2, Immature Granulocyte % (Auto) 1, Neutrophils (%) (Auto) 81H, Lymphocytes (%) (Auto) 9L, Monocytes (%) (Auto) 9, Eosinophils (%) (Auto) 0, Basophils (%) (Auto) 0, Neutrophils # (Auto) 15.0H, Lymphocytes # (Auto) 1.6, Monocytes # (Auto) 1.7H, Eosinophils # (Auto) 0.0, Basophils # (Auto) 0.1, Immature Granulocyte # (Auto) 0.3H, Prothrombin Time 19.4H, INR Comment 1.6H, Sodium Level 140, Potassium Level 4.1, Chloride Level 103, Carbon Dioxide Level 27, Anion Gap 10, Blood Urea Nitrogen 22H, Creatinine 1.27, Estimat Glomerular Filtration Rate 44, BUN/Creatinine Ratio 17, Glucose Level 123H, Calcium Level 9.6, Corrected Calcium 10.6H, Phosphorus Level 3.4, Magnesium Level 2.3, Total Bilirubin 0.5, Aspartate Amino Transf (AST/SGOT) 16, Alanine Aminotransferase (ALT/SGPT) 14, Alkaline Phosphatase 97, Total Protein 7.2, Albumin 2.8L Microbiology 08/07/22 MRSA Screen - Final, Complete MRSA not isolated 08/07/22 Urine Culture - Final, Complete Mixed Bacterial Joanie 08/06/22 Blood Culture - Preliminary, Resulted No growth Laboratory Tests 08/08/22 04:30 08/09/22 03:56 A/P: Assessment: PAF with RVR - echo on 08/07/22: LVEF 55-60%, mild conc LVH, AoV sclerosis w/o stenosis, PASP 50-55 mmHg - warfarin for stroke prophylaxis - INR sub-therapeutic (Lovenox coverage until INR greater than 2.0) Pneumonia - management per medical services UTI - management per medical services Hypertension - controlled Obesity with suspected DIANE Mod pulm htn - may be secondary to untreated DIANE Plan: * Oral long-acting dilt increased on 08/08/22. D/c home amlodipine * anticoag for stroke prophylaxis (she notes intolerance to DOACs, therefore on warfarin) * continue enoxaparin until therapeutic on oral warfarin * monitor labs * Management of UTI and pneumonia per medical services * sleep studies advised * pulm consult advised for pulm htn AWA GOMEZ MD FACP [facility] Aug 09, 2022 09:50
[2022-08-09] MEDS: ENOXAPARIN 100 MG/1 ML (LOVENOX) SYR SC SCH ×2 (10:59→21:56)
[2022-08-09] MEDS ORDERED: DILT180C85 PO (11:06)
[2022-08-09] MEDS ORDERED: PNT400TCR PO (11:07)
[2022-08-09] MEDS ORDERED: BUDE10.22 PO (11:07)
[2022-08-09] MEDS ORDERED: OXYM15MI22 NS (11:08)
--- NOTE | 2022-08-09 13:50 | Physical Therapy Evaluation ---
PT Evaluation-General Medical Diagnosis Admission Date Aug 07, 2022 at 01:18 Medical Diagnosis: A-fib with RVR Onset Date: Aug 07, 2022 Therapy Diagnosis Therapy Diagnosis: debility Height/Weight Height (Feet): 5 Height (Inches): 3.00 Weight (Pounds): 209 Weight (Ounces): 8.0 Precautions Precautions/Isolations: Fall Prevention, Standard Precautions Referral Physician: Joya Reason for Referral: Evaluation/Treatment Medical History Pertinent Medical History: Atrial Fib, DM, HTN Current History ER secondary to SOA and decreased SAO2 68% Reviewed History: Yes Social History Home: Single Level Current Living Status: Other Family Entry Into Home: Stairs With Railing PT Steps Into Home: 3 Prior Prior Level of Function SCALE: Activities may be completed with or without assistive devices. 9-Bfdavxmdnb-gtygwzp completes the activity by him/herself with no assistance from a helper. 5-Set-up or Clean-up Assistance-helper sets up or cleans up; patient completes activity. [place] assists only prior to or following the activity. 4-Supervision or Touching Assistance-helper provides verbal cues and/or touching/steadying and/or contact guard assistance as patient completes activity. Assistance may be provided throughout the activity or intermittently. 3-Partial/Moderate Assistance-helper does LESS THAN HALF the effort. [place] lifts, holds or supports trunk or limbs, but provides less than half the effort. 2-Substantial/Maximal Assistance-helper does MORE THAN HALF the effort. [place] lifts or holds trunk or limbs and provides more than half the effort. 9-Zxowxikol-dhruvi does ALL the effort. Patient does none of the effort to complete the activity. Or, the assistance of 2 or more helpers is required for the patient to complete the activity. If activity was not attempted, code reason: 7-Patient Refused. 9-Not Applicable-not attempted and the patient did not perform the activity before the current illness, exacerbation or injury. 10-Not Attempted due to Environmental Limitations-(lack of equipment, weather restraints, etc.). 88-Not Attempted due to Medical Conditions or Safety Concerns. Bed Mobility: 6 Transfers (B,C,W/C): 6 Gait: 6 Stairs: 6 Indoor Mobility (Ambulation): Independent Stairs: Independent Prior Devices Use: None PT Evaluation-Current Subjective Patient agrees to PT. RT for home O2 study Objective Patient Orientation: Normal For Age Attachments: Oxygen ROM/Strength ROM Lower Extremities bilateral LE WFL Strength Lower Extremities 4/5 grossly bilateral LE all planes Integumentary/Posture Bowel Incontinence: No Bladder Incontinence: No Posture WFL Neuromuscular (Tone, Coordination, Reflexes) grossly intact Sensory Vision: Wears Glasses Hearing: Functional Transfers Sit to Stand (QC): 6 Gait Mode of Locomotion: Walk Anticipated Mode of Locomotion: Walk Walk 10 feet (QC): 6 Walk 50 ft with 2 Turns(QC): 6 Walk 150 ft (QC): 6 Distance: 400' Gait Assistive Device: FWW Comments/Gait Description FWW for energy conservation Balance Sitting Static: Normal Sitting Dynamic: Normal Standing Static: Normal Standing Dynamic: Normal Assessment/Needs Patient is currently at independent [facility] with all gross motor skills safely and does not require skilled PT intervention at this time. Rehab Potential: Fair PT Plan Treatment/Plan Treatment Plan: Discontinue PT, goals met Treatment Duration: Aug 09, 2022 Frequency: 1 time per week Estimated Hrs Per Day: .25 hour per day Time Time In: 1325 Time Out: 1340 DATE: Aug 09, 2022 Total Billed Treatment Time: 15 Total Billed Treatment 1 visit EVMod 15 min MED SALAS PT Aug 09, 2022 13:50
[2022-08-09] MEDS: warFARin 5 MG (COUMADIN) TAB PO SCH (16:25)
--- NOTE | 2022-08-09 20:10 | Progress Note - Hospitalist ---
Subjective HPI/CC On Admission Date Seen by Provider: Aug 09, 2022 Time Seen by Provider: 09:25 Is 77-year-old -[place] female with past medical history of hypertension and atrial fibrillation who presented to the emergency department due to shortness of breath. She had recently been on a vacation to [facility] and started feeling poorly so decided to drive back yesterday so that she can be home and evaluated here. When she presented to the emergency department she was found to be quite hypoxic with sats in the 60s and was tachycardic with a rate in the 140s. She states that this is happened before when she has had pneumonia she is developed A-fib with RVR. She reports feeling much better today though is still somewhat short of breath and coughing. Denies any lower extremity edema or chest pain. Chest x-ray actually did not show any edema and her BNP was 82. She was found to have a leukocytosis and met sepsis criteria. It was concerning for urinary tract infection. She was placed empirically on an tibiotics to cover for both pneumonia and UTI and she was admitted to the ICU on Cardizem drip. Subjective/Events-last exam She is feeling better. She is in a good mood. She denies any complaints. Focused Exam Lactate Level 08/06/22 23:21: Lactic Acid Level 1.36 Objective Exam Vital Signs Vital Signs Date Time Temp Pulse Resp B/P (MAP) Pulse Ox O2 Delivery O2 Flow Rate FiO2 08/09/22 18:58 100 High Flow N/C 4.00 08/09/22 18:00 78 17 147/69 (95) 08/09/22 15:26 36.5 08/08/22 07:27 36 Capillary Refill : Less Than 3 Seconds General Appearance: No Apparent Distress, Obese Respiratory: Lungs Clear, No Respiratory Distress Cardiovascular: Regular Rate, Rhythm, No Murmur Gastrointestinal: Normal Bowel Sounds, Soft Extremity: Normal Inspection, Non Tender Neurologic/Psychiatric: Alert, Normal Mood/Affect Skin: Normal Color, Warm/Dry Results/Procedures Lab Laboratory Tests 08/09/22 03:56 Patient resulted labs reviewed. Imaging: Reviewed Imaging Report Assessment/Plan Assessment and Plan Assess & Plan/Chief Complaint Afib with RVR Chronic anticoagulation HTN Acute hypoxic respiratory failure Pulmonary hypertension Cardiology following Lovenox bridge Warfarin subtherapeutic Add prednisone for wheezing MAT protocol Echo with pulmonary hypertension Remains signfiicantly hypoxic with activity Add CT to rule out PE Sepsis due to UTI- POA Urine culture with mixed bacterial ryanne Transition to Omnicef DVT ppx: Lovenox and Warfarin as able Critical Care Critically Ill Patient Diagnosis/Problems Diagnosis/Problems (1) Atrial fibrillation with rapid ventricular response Status: Acute (2) Acute respiratory failure with hypoxia Status: Acute (3) Pulmonary hypertension Status: Acute (4) UTI (urinary tract infection) Status: Acute Qualifiers: Urinary tract infection type: acute cystitis Hematuria presence: without hematuria Qualified Codes: N30.00 - Acute cystitis without hematuria MUNA ALMEIDA MD Aug 09, 2022 20:10
[2022-08-10] MEDS: RT-ALBUTEROL SULF 2.5 MG/3 ML PRE-MIX VIAL INH SCH ×5 (02:49→22:02)
[2022-08-10 03:48] LABS: BASOPHILS # (AUTO) 0.1 10^3/uL (0.0-0.1); BASOPHILS % (AUTO) 0 % (0-10); EOSINOPHILS % (AUTO) 0 % (0-10); HEMATOCRIT 37 % (35-52); HEMOGLOBIN 11.5 g/dL (11.5-16.0); LYMPHOCYTES # (AUTO) 2.3 10^3/uL (1.0-4.0); LYMPHOCYTES % (AUTO) 14 % (12-44); MEAN CORPUSCULAR HEMOGLOBIN 28 pg (25-34); MEAN CORPUSCULAR HGB CONC 31 g/dL (32-36); MEAN CORPUSCULAR VOLUME 90 fL (80-99); MONOCYTES # (AUTO) 1.6 10^3/uL (0.0-1.0); MONOCYTES % (AUTO) 9 % (0-12); NEUTROPHILS # (AUTO) 12.6 10^3/uL (1.8-7.8); NEUTROPHILS % (AUTO) 75 % (42-75); PLATELET COUNT 360 10^3/uL (130-400); WHITE BLOOD COUNT 16.8 10^3/uL (4.3-11.0)
[2022-08-10 04:00] LABS: ALBUMIN 2.9 GM/DL (3.2-4.5); POTASSIUM 3.8 MMOL/L (3.6-5.0)
[2022-08-10 04:01] LABS: CALCIUM 9.9 MG/DL (8.5-10.1)
[2022-08-10 04:03] LABS: INR 1.8 (0.8-1.4); PROTHROMBIN TIME PATIENT 20.7 SEC (12.2-14.7); TOTAL PROTEIN 7.3 GM/DL (6.4-8.2)
[2022-08-10 04:04] LABS: BILIRUBIN,TOTAL 0.4 MG/DL (0.1-1.0)
[2022-08-10 04:06] LABS: CREATININE SERUM 1.16 MG/DL (0.60-1.30)
[2022-08-10 04:09] LABS: MAGNESIUM 1.9 MG/DL (1.6-2.4)
[2022-08-10] MEDS: predniSONE 20 MG TAB PO SCH (06:45)
[2022-08-10] MEDS: FLUTICASONE/VILANTEROL 200 MCG 14'S (BREO) IH SCH (06:59)
[2022-08-10] MEDS: MAGNESIUM 1 GM/100 ML IVPB 100 ML IV SCH ×2 (07:18→08:58)
[2022-08-10] MEDS: POTASSIUM CL 10MEQ/50ML IVPB 50 ML IV SCH (07:18)
[2022-08-10] MEDS: inSUlin ASPART (NovoLOG) 1 UNIT/0.01 ML (CHARGE PER UNIT) SC SCH ×4 (07:19→20:10)
[2022-08-10] MEDS: KCL 20 MEQ TAB (K-DUR) PO SCH (07:19)
[2022-08-10] MEDS ORDERED: KCL 20 MEQ TAB (K-DUR) PO ONE (07:30)
--- NOTE | 2022-08-10 08:36 | Diagnostic Imaging Report ---
EXAMINATION: Chest 1 view HISTORY: Pneumonia COMPARISON: 08/06/2022 FINDINGS: There are moderate interstitial opacities increased from prior exam. There are small pleural effusions. No pneumothorax. Heart is mildly enlarged. IMPRESSION: 1. Moderate interstitial opacities increased from prior exam. Favored to represent edema. Dictated by: Dictated on workstation # [id number]
[2022-08-10] MEDS: ALLOPURINOL 100 MG (ZYLOPRIM) TAB PO SCH (08:57)
[2022-08-10] MEDS: CEFDINIR 300 MG (OMNICEF) CAP PO SCH ×2 (08:57→20:10)
[2022-08-10] MEDS ORDERED: IOHEXOL 350 MG/ML 100 ML (OMNIPAQUE 350) VIAL IV ONE (09:30)
[2022-08-10] MEDS ORDERED: NS 100 ML (IVPB) BAG IV ONE (09:30)
--- NOTE | 2022-08-10 10:18 | Diagnostic Imaging Report ---
EXAMINATION: CT of the chest TECHNIQUE: Precontrast images were obtained of the chest utilizing PE protocol. Multiple contiguous axial images were obtained through the chest, abdomen, and pelvis after administration of intravenous contrast. Auto Exposure Controls were utilized during the CT exam to meet ALARA standards for radiation dose reduction. HISTORY: Hypoxia, pneumonia, A. fib with RVR COMPARISON: Chest radiograph 08/10/2022. FINDINGS: Scattered paraseptal and centrilobular emphysema. Honeycombing noted within the lung bases. Airspace opacity within the right upper and right lower lobes. Enlarged pulmonary artery compatible with pulmonary hypertension. No pleural effusion. No pneumothorax. No suspicious nodules. There is no axillary or supraclavicular lymphadenopathy. There is no mediastinal lymphadenopathy. Heart size is enlarged. There are moderate coronary artery calcifications. No pericardial effusion. Aorta is normal in caliber. Included views of the abdomen demonstrate a small hiatal hernia. No lytic or sclerotic lesion within the visualized osseous structures. IMPRESSION: Airspace opacity within the right upper lobe and right lower lobes concerning for infection. Superimposed honeycombing and interstitial thickening may be seen with chronic interstitial lung disease. Dictated by: Additional chronic/incidental findings as above. Dictated on workstation # [id number]
[2022-08-10] MEDS: guaiFENesin/DM (ROBITUSSIN DM) 10 ML UDC PO PRN ×2 (10:31→20:10)
[2022-08-10] MEDS: ENOXAPARIN 100 MG/1 ML (LOVENOX) SYR SC SCH ×2 (10:38→22:58)
--- NOTE | 2022-08-10 13:17 | Tele-ICU Progress Note ---
Subjective Date Seen by a Provider: Aug 10, 2022 Time Seen by a Provider: 13:17 Subjective/Events-last exam Video assessment done , Hemodynamically stable Available charting reviewed, discussed with RN PATIENT IS STEP-DOWN STATUS ( not ICU ) , WILL SIGN OFF BUT WILL BE AVAILABLE IF ANY QUESTIONS , LONG PATIENT IS PHYSICALLY IN ICU BED (Tele-ICU Physician , Progress Note ) Service provided via interactive audio and video telecommunications E-CARE system to a patient admitted to ICU bed in [facility]. Patient is seen today due to persistent need of ICU care Available chart/ vitals / labs / Images reviewed Video assessment done using teleICU camera, rest of exam as per RN Discussed with RN Events overnight : Afebrile hemodynamically stable Respiratory - 4 l I/O =pos Drips: Pressors- no Hospital course: (08/07) 77/F- HYPOXIC, AFIB RVR, off meds for 2 + days. oxymask in the er now 4l nc icu, uti and pna. Cardizem gtt. A/P A fib RVR ( known a fib --Cardizem drip off po meds - cards consulted - ac with lovenox , - PRA on coumadin with INR <2 -ef 55% ECHO 08/07/22 PNA , possible - cont abx for now Acute hypoxic respiratory failure - due to PNA , but xr with suspected chronic intrerst. changes - if more hypoxixc will try diuresis - on 3-4 L o2 with desat with any movements - PASP 50-55 mmHg- consiider diuresis Pulm HTN H/O ASTHAM - REPORTED WHEEZING - ADDED PREDNISONE PO 08/08 Puln HTN - by ECHO 08/07/22 - RVSP 55 Mm HG VERN - resolved , STOP hydration Lines : , (Central Line Necessity Reviewed) [place]: OG: Nutrition: po Analgesia: Anxiety/ delirium VTE Prophylaxis: full dose Lovenox. Stress Ulcer Prophylaxis: na Plans in collaboration with bedside consultants and IM MDs. Discussed with RN to reach out if any questions or concerns Case and care daily discussed on multidisciplinary rounds ( RN, PharmD, Audit Clerk , Respiratory Therapy, animal care service worker ) A total of 10 minutes of critical care time was devoted to this patient today, required to treat and/or prevent further deterioration of critical care condition ( as above ) . I am remotely monitoring this patient from another state. I am unable to do the bedside exam, and history/physical and pertinent information is taken from other notes in the computer and bedside staff. Sepsis Event Evaluation Height, Weight, BMI Height: 5'3.00" Weight: 209lbs. 8.0oz. 95.840027jt; 42.48 BMI Method:Stated Exam Exam Patient acknowledged, consented, and participated in this virtual visit which was conducted using real time audio/video Vital Signs Date Time Temp Pulse Resp B/P (MAP) Pulse Ox O2 Delivery O2 Flow Rate FiO2 08/10/22 12:10 76 08/10/22 11:31 95 High Flow N/C 2.00 08/10/22 11:27 36.3 08/10/22 10:00 81 46 145/67 (93) 91 High Flow N/C 2.00 08/10/22 09:00 91 26 144/70 (94) 96 High Flow N/C 2.00 08/10/22 08:00 96 High Flow N/C 2.00 08/10/22 08:00 104 45 140/72 (94) 90 High Flow N/C 2.00 08/10/22 07:35 35.9 08/10/22 07:33 87 08/10/22 07:00 86 13 134/77 (96) 100 High Flow N/C 2.00 08/10/22 06:57 100 High Flow N/C 3.00 08/10/22 06:00 101 31 138/102 (114) 92 High Flow N/C 2.00 08/10/22 05:00 83 31 128/77 (94) 97 High Flow N/C 2.00 08/10/22 04:00 94 12 113/61 (78) 97 High Flow N/C 2.00 08/10/22 04:00 96 High Flow N/C 2.00 08/10/22 03:00 75 32 133/65 (91) 100 High Flow N/C 2.00 08/10/22 02:49 97 High Flow N/C 4.00 08/10/22 02:00 90 39 118/62 (99) 97 High Flow N/C 2.00 08/10/22 01:28 87 08/10/22 01:00 78 132/66 (88) 96 High Flow N/C 2.00 08/10/22 00:00 89 146/71 (96) 97 High Flow N/C 2.00 08/09/22 23:59 96 High Flow N/C 2.00 08/09/22 23:20 94 19 104/82 (89) 95 High Flow N/C 2.00 08/09/22 22:08 98 High Flow N/C 2.00 08/09/22 22:00 85 36 143/76 (98) 96 High Flow N/C 2.00 08/09/22 21:00 85 13 132/66 (92) 95 High Flow N/C 2.00 08/09/22 20:00 96 High Flow N/C 2.00 08/09/22 20:00 79 133/67 (94) 96 High Flow N/C 2.00 08/09/22 19:00 77 137/69 (100) 100 High Flow N/C 2.00 08/09/22 19:00 82 08/09/22 18:58 100 High Flow N/C 4.00 08/09/22 18:00 78 17 147/69 (95) 97 High Flow N/C 2.00 08/09/22 17:00 77 23 131/65 (87) 93 High Flow N/C 2.00 08/09/22 16:00 75 13 147/63 (91) 94 High Flow N/C 2.00 08/09/22 15:26 36.5 08/09/22 15:08 High Flow N/C 2.00 08/09/22 15:07 92 High Flow N/C 2.00 08/09/22 15:00 78 18 143/72 (95) 96 High Flow N/C 3.00 08/09/22 14:33 95 High Flow N/C 2.00 08/09/22 14:00 82 17 94 High Flow N/C 3.00 I & O 08/10/22 07:00 Intake Total 2150 ml Output Total 850 ml Balance 1300 ml Height & Weight Height: 5'3.00" Weight: 209lbs. 8.0oz. 95.193855hg; 42.48 BMI Method:Stated General Appearance: No Apparent Distress, Obese Respiratory: Lungs Clear, No Respiratory Distress Cardiovascular: Regular Rate, Rhythm, No Murmur Capillary Refill: Less Than 3 Seconds Gastrointestinal: normal bowel sounds, non tender, soft Extremity: Normal Inspection, Non Tender Neurologic/Psychiatric: Alert, Normal Mood/Affect Skin: Normal Color, Warm/Dry Results Lab Laboratory Tests 08/09/22 03:56 08/10/22 03:22 Assessment/Plan Assessment/Plan 1 SHAD WHITE MD Aug 10, 2022 13:17
--- NOTE | 2022-08-10 14:22 | Progress Note - Hospitalist ---
Subjective HPI/CC On Admission Date Seen by Provider: Aug 10, 2022 Time Seen by Provider: 09:30 Is 77-year-old -Citizen Of [place] female with past medical history of hypertension and atrial fibrillation who presented to the emergency department due to shortness of breath. She had recently been on a vacation to [facility] and started feeling poorly so decided to drive back yesterday so that she can be home and evaluated here. When she presented to the emergency department she was found to be quite hypoxic with sats in the 60s and was tachycardic with a rate in the 140s. She states that this is happened before when she has had pneumonia she is developed A-fib with RVR. She reports feeling much better today though is still somewhat short of breath and coughing. Denies any lower extremity edema or chest pain. Chest x-ray actually did not show any edema and her BNP was 82. She was found to have a leukocytosis and met sepsis criteria. It was concerning for urinary tract infection. She was placed empirically on an tibiotics to cover for both pneumonia and UTI and she was admitted to the ICU on Cardizem drip. Subjective/Events-last exam She is still having some shortness of breath. She has no other complaints. Objective Exam Vital Signs Vital Signs Date Time Temp Pulse Resp B/P (MAP) Pulse Ox O2 Delivery O2 Flow Rate FiO2 08/10/22 15:38 95 High Flow N/C 2.00 08/10/22 15:00 68 34 137/77 (97) 08/10/22 11:27 36.3 08/08/22 07:27 36 Capillary Refill : Less Than 3 Seconds General Appearance: No Apparent Distress, Obese Respiratory: No Respiratory Distress, Crackles, Decreased Breath Sounds Cardiovascular: Regular Rate, Rhythm, No Murmur Gastrointestinal: Normal Bowel Sounds, Soft Extremity: Normal Inspection, Pedal Edema Neurologic/Psychiatric: Alert, Normal Mood/Affect Skin: Normal Color, Warm/Dry Results/Procedures Lab Laboratory Tests 08/10/22 03:22 Patient resulted labs reviewed. Imaging: Reviewed Imaging Report Assessment/Plan Assessment and Plan Assess & Plan/Chief Complaint Afib with RVR Chronic anticoagulation HTN Cardiology following Cardizem Lovenox bridge Warfarin subtherapeutic, 1.8 Acute hypoxic respiratory failure Pulmonary hypertension Chronic interstitial lung disease Pneumonia Possible UTI Continue prednisone MAT protocol Echo with pulmonary hypertension Repeat oxygen study requiring [address] concerning for infection, also with chronic interstitial lung disease Continue antibiotics DVT ppx: Lovenox and Warfarin Sepsis, resolved Diagnosis/Problems Diagnosis/Problems (1) Atrial fibrillation with rapid ventricular response Status: Acute (2) Acute respiratory failure with hypoxia Status: Acute (3) Pulmonary hypertension Status: Acute (4) UTI (urinary tract infection) Status: Acute Qualifiers: Urinary tract infection type: acute cystitis Hematuria presence: without hematuria Qualified Codes: N30.00 - Acute cystitis without hematuria (5) PNA (pneumonia) Status: Acute (6) Chronic interstitial lung disease Status: Acute MUNA ALMEIDA MD Aug 10, 2022 14:22
--- NOTE | 2022-08-10 15:29 | Progress Note - Cardiology ---
Cardiology SOAP Progress Note Subjective: No cp or palp or syncope Shortness of breath has improved No swelling No n/v/d Gen weakness present Does not report focal weakness Objective: I&O/Vital Signs 08/10/22 08/10/22 08/10/22 08/10/22 04:00 04:00 05:00 06:00 Pulse 94 83 101 Resp 12 31 31 B/P (MAP) 113/61 (78) 128/77 (94) 138/102 (114) Pulse Ox 96 97 97 92 O2 Delivery High Flow N/C High Flow N/C High Flow N/C High Flow N/C O2 Flow Rate 2.00 2.00 2.00 2.00 08/10/22 08/10/22 08/10/22 08/10/22 06:57 07:00 07:33 07:35 Temp 35.9 Pulse 86 87 Resp 13 B/P (MAP) 134/77 (96) Pulse Ox 100 100 O2 Delivery High Flow N/C High Flow N/C O2 Flow Rate 3.00 2.00 08/10/22 08/10/22 08/10/22 08/10/22 08:00 08:00 09:00 10:00 Pulse 104 91 81 Resp 45 26 46 B/P (MAP) 140/72 (94) 144/70 (94) 145/67 (93) Pulse Ox 90 96 96 91 O2 Delivery High Flow N/C High Flow N/C High Flow N/C High Flow N/C O2 Flow Rate 2.00 2.00 2.00 2.00 08/10/22 08/10/22 08/10/22 08/10/22 11:00 11:27 11:31 12:00 Temp 36.3 Pulse 91 74 Resp 25 16 B/P (MAP) 149/75 (99) 125/63 (83) Pulse Ox 90 95 91 O2 Delivery High Flow N/C High Flow N/C High Flow N/C O2 Flow Rate 2.00 2.00 2.00 08/10/22 08/10/22 08/10/22 08/10/22 12:10 13:00 14:00 14:38 Pulse 76 68 65 Resp 16 17 B/P (MAP) 132/67 (88) 134/72 (92) Pulse Ox 96 96 95 O2 Delivery High Flow N/C High Flow N/C High Flow N/C O2 Flow Rate 2.00 2.00 2.00 08/10/22 15:00 Pulse 68 Resp 34 B/P (MAP) 137/77 (97) Pulse Ox 95 O2 Delivery High Flow N/C O2 Flow Rate 2.00 08/10/22 00:00 Intake Total 1200 ml Output Total 350 ml Balance 850 ml Weight (Pounds): 209 Weight (Ounces): 8.0 Weight (Calculated Kilograms): 95.083571 Constitutional: AAO x 3, well-developed, well-nourished Respiratory: No accessory muscle use; chest expansion is symmetric, chest is bilaterally symmetric, other (fair to good, bilateral air entry; scattered rhonchi) Cardiovascular: irregularly irregular, S1 and S2, systolic murmur (soft MOLLY at card base) Gastrointestional: No tender; soft; No guarding, No rebound; audible bowel sounds Extremities: No clubbing, No cyanosis, No significant edema Neurologic/Psychiatric: oriented x 3, other (moves all limbs equally) Skin: normal color, warm/dry; No cool, No diaphoresis Results/Procedures: Labs Laboratory Tests 08/09/22 15:36: Glucometer 169H 08/09/22 20:01: Glucometer 148H 08/10/22 03:22: White Blood Count 16.8H, Red Blood Count 4.08, Hemoglobin 11.5, Hematocrit 37, Mean Corpuscular Volume 90, Mean Corpuscular Hemoglobin 28, Mean Corpuscular Hemoglobin Concent 31L, Red Cell Distribution Width 15.2H, Platelet Count 360, Mean Platelet Volume 12.0, Immature Granulocyte % (Auto) 2, Neutrophils (%) (Auto) 75, Lymphocytes (%) (Auto) 14, Monocytes (%) (Auto) 9, Eosinophils (%) (Auto) 0, Basophils (%) (Auto) 0, Neutrophils # (Auto) 12.6H, Lymphocytes # (Auto) 2.3, Monocytes # (Auto) 1.6H, Eosinophils # (Auto) 0.0, Basophils # (Auto) 0.1, Immature Granulocyte # (Auto) 0.3H, Prothrombin Time 20.7H, INR Comment 1.8H, Sodium Level 141, Potassium Level 3.8, Chloride Level 103, Carbon Dioxide Level 28, Anion Gap 10, Blood Urea Nitrogen 27H, Creatinine 1.16, Estimat Glomerular Filtration Rate 49, BUN/Creatinine Ratio 23, Glucose Level 106H, Calcium Level 9.9, Corrected Calcium 10.8H, Phosphorus Level 3.0, Magnesium Level 1.9, Total Bilirubin 0.4, Aspartate Amino Transf (AST/SGOT) 16, Alanine Aminotransferase (ALT/SGPT) 15, Alkaline Phosphatase 93, Total Protein 7.3, Albumin 2.9L 08/10/22 11:04: Glucometer 120H Microbiology 08/07/22 MRSA Screen - Final, Complete MRSA not isolated 08/07/22 Urine Culture - Final, Complete Mixed Bacterial Joanie 08/06/22 Blood Culture - Preliminary, Resulted No growth Laboratory Tests 08/09/22 03:56 08/10/22 03:22 A/P: Assessment: PAF with RVR - echo on 08/07/22: LVEF 55-60%, mild conc LVH, AoV sclerosis w/o stenosis, PASP 50-55 mmHg - warfarin for stroke prophylaxis - INR sub-therapeutic (Lovenox coverage until INR greater than 2.0) Pneumonia - management per Medical services UTI - management per Medical services Hypertension - controlled Obesity with suspected DIANE Mod pulm htn - may be secondary to untreated DIANE Plan: * Oral long-acting dilt increased on 08/08/22. D/c home amlodipine * Anticoag for stroke prophylaxis (she notes intolerance to DOACs, therefore on warfarin) * Continue enoxaparin until therapeutic on oral warfarin * Monitor labs * Management of UTI and pneumonia per medical services * Sleep studies advised * Pulm consult advised for pulm htn AWA GOMEZ MD FACP FAC CCDS Aug 10, 2022 15:29
[2022-08-10] MEDS: warFARin 5 MG (COUMADIN) TAB PO SCH (18:19)
[2022-08-11] MEDS: RT-ALBUTEROL SULF 2.5 MG/3 ML PRE-MIX VIAL INH SCH ×3 (03:02→11:21)
[2022-08-11 04:09] LABS: BASOPHILS # (AUTO) 0.1 10^3/uL (0.0-0.1); BASOPHILS % (AUTO) 0 % (0-10); EOSINOPHILS # (AUTO) 0.1 10^3/uL (0.0-0.3); EOSINOPHILS % (AUTO) 0 % (0-10); HEMATOCRIT 37 % (35-52); HEMOGLOBIN 11.6 g/dL (11.5-16.0); LYMPHOCYTES # (AUTO) 2.7 10^3/uL (1.0-4.0); LYMPHOCYTES % (AUTO) 19 % (12-44); MEAN CORPUSCULAR HEMOGLOBIN 28 pg (25-34); MEAN CORPUSCULAR HGB CONC 31 g/dL (32-36); MEAN CORPUSCULAR VOLUME 90 fL (80-99); MEAN PLATELET VOLUME 11.7 fL (9.0-12.2); MONOCYTES # (AUTO) 1.2 10^3/uL (0.0-1.0); MONOCYTES % (AUTO) 8 % (0-12); NEUTROPHILS # (AUTO) 9.8 10^3/uL (1.8-7.8); NEUTROPHILS % (AUTO) 70 % (42-75); PLATELET COUNT 340 10^3/uL (130-400); WHITE BLOOD COUNT 14.1 10^3/uL (4.3-11.0)
[2022-08-11 04:20] LABS: ALBUMIN 2.8 GM/DL (3.2-4.5); POTASSIUM 4.5 MMOL/L (3.6-5.0)
[2022-08-11 04:21] LABS: CALCIUM 9.6 MG/DL (8.5-10.1)
[2022-08-11 04:22] LABS: TOTAL PROTEIN 6.9 GM/DL (6.4-8.2)
[2022-08-11 04:24] LABS: BILIRUBIN,TOTAL 0.3 MG/DL (0.1-1.0)
[2022-08-11 04:25] LABS: PHOSPHORUS 3.1 MG/DL (2.3-4.7)
[2022-08-11 04:26] LABS: CREATININE SERUM 1.02 MG/DL (0.60-1.30)
[2022-08-11 04:28] LABS: MAGNESIUM 1.9 MG/DL (1.6-2.4)
[2022-08-11] MEDS: POTASSIUM CL 10MEQ/50ML IVPB 50 ML IV SCH (06:35)
[2022-08-11] MEDS: KCL 20 MEQ TAB (K-DUR) PO SCH (06:35)
[2022-08-11] MEDS: inSUlin ASPART (NovoLOG) 1 UNIT/0.01 ML (CHARGE PER UNIT) SC SCH ×2 (06:35→11:21)
[2022-08-11] MEDS: MAGNESIUM 1 GM/100 ML IVPB 100 ML IV SCH ×3 (06:39→07:45)
[2022-08-11] MEDS: predniSONE 20 MG TAB PO SCH (06:47)
[2022-08-11] MEDS: FLUTICASONE/VILANTEROL 200 MCG 14'S (BREO) IH SCH (06:54)
--- NOTE | 2022-08-11 07:43 | Tele-ICU Progress Note ---
Subjective Date Seen by a Provider: Aug 11, 2022 Subjective/Events-last exam (Tele-ICU Physician/ Pulmonary , Progress Note ) Service provided via interactive audio and video telecommunications E-CARE system to a patient admitted to ICU bed in [facility]. Patient is seen today due to persistent need of ICU care Available chart/ vitals / labs / Images reviewed Video assessment done using teleICU camera, rest of exam as per RN She is a 77-year-old -[place] female with past medical history of hypertension type 2 diabetes mellitus and atrial fibrillation presented with a complaint of shortness of breath, cough, fatigue and palpitations. Apparently she got sick couple of days prior to this admission when she was traveling to with family and had a low-grade fever. She has not been taking her medications today and yesterday. She is supposed to be taking Coumadin but not taking due to her illness. In the emergency room she is found to have a hypoxia and atrial fibrillation with rapid ventricular rate with a heart rate of 140s. She required 4 L of oxygen via facemask which brought her oxygen saturation to 96%. She is started on a Cardizem drip and admitted to the intensive care unit. Chest x-ray showed bilateral infiltrate suggestive of pneumonia. 08/09/22 today she is on 10L HFN RVR controlled. no acute respiratory distress. Blood c/s negative. 08/11/22 she is sitting OOB TO CHAIR. no distress with o2 via n/c CTA chest reviewed. showing evidence of chr. interstitial lung disease with honey combing changes which might be responsible for pulmonary hypertension. Impression 1. Atrial fibrillation with rapid ventricular rate controlled now on oral Cardizem 2. Bilateral pneumonia slowly improving. on omnicef. also has IPF 3. Acute kidney injury improving 4. Acute hypoxic respiratory failure IMPROVED considerably Recommendation 1. Continue Cardizem po per cardiolgy 2. Restart on anticoagulant therapy and bridge with Lovenox. 3. IV antibiotics. 4. DVT prophylaxis and stroke prophylaxis with full dose Lovenox and warfarin. lovenox to be discontinued once inr 2.0 or more. 5. Supplemental oxygen 6. We will give her bronchodilator therapy. 7. Hydrate patient with normal saline and monitor BUN and creatinine. Coordination of care with primary care physician and bedside consultants. I am remotely monitoring this patient from Tele icu station in [place]. I am unable to do the bedside exam, and history/physical and pertinent information is taken from other notes in the computer and bedside staff. Certain portions of this document may have been dictated utilizing voice recognition technology such as [employer]. Inherent to this technology, typographical and grammatical errors may exist. As much as I am diligent to identify and correct to these mistakes, some errors may remain in the document. Critical care time devoted to this patient today is approximately is 22 minutes-- Sepsis Event Evaluation Height, Weight, BMI Height: 5'3.00" Weight: 209lbs. 8.0oz. [id number]; 42.89 BMI Method:Stated Exam Exam Patient acknowledged, consented, and participated in this virtual visit which was conducted using real time audio/video Vital Signs Date Time Temp Pulse Resp B/P (MAP) Pulse Ox O2 Delivery O2 Flow Rate FiO2 08/11/22 06:56 100 High Flow N/C 0.50 08/11/22 06:00 89 150/67 (94) 100 High Flow N/C 2.00 08/11/22 04:00 96 High Flow N/C 2.00 08/11/22 04:00 81 139/77 (102) 93 High Flow N/C 2.00 08/11/22 03:02 99 High Flow N/C 0.50 08/11/22 02:00 74 20 134/70 (89) 99 High Flow N/C 2.00 08/11/22 00:00 78 10 142/71 (94) 96 High Flow N/C 2.00 08/10/22 23:59 96 High Flow N/C 2.00 08/10/22 22:04 97 High Flow N/C 0.50 08/10/22 22:00 78 20 138/74 (95) 94 High Flow N/C 2.00 08/10/22 20:03 36.3 08/10/22 20:03 36.2 08/10/22 20:00 85 39 137/73 (94) 96 High Flow N/C 2.00 08/10/22 20:00 97 High Flow N/C 2.00 08/10/22 18:00 73 25 139/86 (103) 96 High Flow N/C 2.00 08/10/22 17:00 83 17 143/72 (95) 90 High Flow N/C 2.00 08/10/22 16:32 36.1 08/10/22 16:00 77 43 139/70 (93) 94 High Flow N/C 2.00 08/10/22 15:38 95 High Flow N/C 2.00 08/10/22 15:00 68 34 137/77 (97) 95 High Flow N/C 2.00 08/10/22 14:38 95 High Flow N/C 2.00 08/10/22 14:00 65 17 134/72 (92) 96 High Flow N/C 2.00 08/10/22 13:00 68 16 132/67 (88) 96 High Flow N/C 2.00 08/10/22 12:10 76 08/10/22 12:00 95 High Flow N/C 2.00 08/10/22 12:00 74 16 125/63 (83) 91 High Flow N/C 2.00 08/10/22 11:31 95 High Flow N/C 2.00 08/10/22 11:27 36.3 08/10/22 11:00 91 25 149/75 (99) 90 High Flow N/C 2.00 08/10/22 10:00 81 46 145/67 (93) 91 High Flow N/C 2.00 08/10/22 09:00 91 26 144/70 (94) 96 High Flow N/C 2.00 08/10/22 08:00 96 High Flow N/C 2.00 08/10/22 08:00 104 45 140/72 (94) 90 High Flow N/C 2.00 I & O 08/11/22 07:00 Intake Total 1820 ml Output Total 1050 ml Balance 770 ml Height & Weight Height: 5'3.00" Weight: 209lbs. 8.0oz. [id number]; 42.89 BMI Method:Stated General Appearance: No Apparent Distress, Obese Respiratory: No Respiratory Distress, Crackles, Decreased Breath Sounds Cardiovascular: Regular Rate, Rhythm, No Murmur Capillary Refill: Less Than 3 Seconds Gastrointestinal: normal bowel sounds, non tender, soft Extremity: Normal Inspection, Pedal Edema Neurologic/Psychiatric: Alert, Normal Mood/Affect Skin: Normal Color, Warm/Dry Results Lab Laboratory Tests 08/10/22 03:22 08/11/22 03:27 Assessment/Plan Assessment/Plan as above. Critical Care: Critically Ill Patient Time spent with patient (mins): 22 KEHINDE SIMMONS MD Aug 11, 2022 07:43
--- NOTE | 2022-08-11 08:45 | Progress Note - Cardiology ---
Cardiology SOAP Progress Note Subjective: Sitting up in the recliner at the bedside States she is feeling much better SOB is improving No c/o CP or palpitations Objective: I&O/Vital Signs 08/10/22 08/10/22 08/10/22 08/11/22 22:00 22:04 23:59 00:00 Pulse 78 78 Resp 20 10 B/P (MAP) 138/74 (95) 142/71 (94) Pulse Ox 94 97 96 96 O2 Delivery High Flow N/C High Flow N/C High Flow N/C High Flow N/C O2 Flow Rate 2.00 0.50 2.00 2.00 08/11/22 08/11/22 08/11/22 08/11/22 02:00 03:02 04:00 04:00 Pulse 74 81 Resp 20 B/P (MAP) 134/70 (89) 139/77 (102) Pulse Ox 99 99 93 96 O2 Delivery High Flow N/C High Flow N/C High Flow N/C High Flow N/C O2 Flow Rate 2.00 0.50 2.00 2.00 08/11/22 08/11/22 08/11/22 06:00 06:56 07:55 Temp 36.0 Pulse 89 82 Resp 17 B/P (MAP) 150/67 (94) 137/89 (105) Pulse Ox 100 100 100 O2 Delivery High Flow N/C High Flow N/C Nasal Cannula O2 Flow Rate 2.00 0.50 2.00 08/11/22 00:00 Intake Total 1470 ml Output Total 300 ml Balance 1170 ml Weight (Pounds): 209 Weight (Ounces): 8.0 Weight (Calculated Kilograms): 95.933321 Constitutional: AAO x 3, well-developed, well-nourished Respiratory: No accessory muscle use; chest expansion is symmetric, chest is bilaterally symmetric, other (fair to good, bilateral air entry; scattered rhonchi) Cardiovascular: irregularly irregular, S1 and S2, systolic murmur (soft MOLLY at card base) Gastrointestional: No tender; soft; No guarding, No rebound; audible bowel sounds Extremities: No clubbing, No cyanosis, No significant edema Neurologic/Psychiatric: oriented x 3, other (moves all limbs equally) Skin: normal color, warm/dry; No cool, No diaphoresis Results/Procedures: Labs Laboratory Tests 08/10/22 11:04: Glucometer 120H 08/10/22 15:36: Glucometer 140H 08/10/22 20:06: Glucometer 128H 08/11/22 03:27: White Blood Count 14.1H, Red Blood Count 4.11, Hemoglobin 11.6, Hematocrit 37, Mean Corpuscular Volume 90, Mean Corpuscular Hemoglobin 28, Mean Corpuscular Hemoglobin Concent 31L, Red Cell Distribution Width 15.4H, Platelet Count 340, Mean Platelet Volume 11.7, Immature Granulocyte % (Auto) 2, Neutrophils (%) (Auto) 70, Lymphocytes (%) (Auto) 19, Monocytes (%) (Auto) 8, Eosinophils (%) (Auto) 0, Basophils (%) (Auto) 0, Neutrophils # (Auto) 9.8H, Lymphocytes # (Auto) 2.7, Monocytes # (Auto) 1.2H, Eosinophils # (Auto) 0.1, Basophils # (Auto) 0.1, Immature Granulocyte # (Auto) 0.3H, Sodium Level 141, Potassium Level 4.5, Chloride Level 102, Carbon Dioxide Level 29, Anion Gap 10, Blood Urea Nitrogen 27H, Creatinine 1.02, Estimat Glomerular Filtration Rate 57, BUN/Creatinine Ratio 26, Glucose Level 90, Calcium Level 9.6, Corrected Calcium 10.6H, Phosphorus Level 3.1, Magnesium Level 1.9, Total Bilirubin 0.3, Aspartate Amino Transf (AST/SGOT) 19, Alanine Aminotransferase (ALT/SGPT) 17, Alkaline Phosphatase 81, Total Protein 6.9, Albumin 2.8L Microbiology 08/07/22 MRSA Screen - Final, Complete MRSA not isolated 08/07/22 Urine Culture - Final, Complete Mixed Bacterial Joanie 08/06/22 Blood Culture - Preliminary, Resulted No growth A/P: Assessment: PAF with RVR - echo on 08/07/22: LVEF 55-60%, mild conc LVH, AoV sclerosis w/o stenosis, PASP 50-55 mmHg - warfarin for stroke prophylaxis - INR sub-therapeutic (Lovenox coverage until INR greater than 2.0) Pneumonia - management per Medical services UTI - management per Medical services Hypertension - controlled Obesity with suspected DIANE Mod pulm htn - may be secondary to untreated DIANE Plan: * Cotninue eve long-acting dilt ( increased on 08/08/22) * Anticoag for stroke prophylaxis (she notes intolerance to DOACs, therefore on warfarin) * Continue enoxaparin until therapeutic on oral warfarin * Monitor labs * Management of UTI and pneumonia per medical services * Sleep studies advised * Pulm consult advised for pulm htn NOHEMI MON Aug 11, 2022 08:45
[2022-08-11] MEDS: ALLOPURINOL 100 MG (ZYLOPRIM) TAB PO SCH (09:05)
[2022-08-11] MEDS: CEFDINIR 300 MG (OMNICEF) CAP PO SCH (09:06)
[2022-08-11 10:05] LABS: INR 2.1 (0.8-1.4); PROTHROMBIN TIME PATIENT 23.3 SEC (12.2-14.7)
[2022-08-11] MEDS ORDERED: PRED10TA22 PO (11:16)
[2022-08-11] MEDS ORDERED: DILT300C52 PO (11:16)
[2022-08-11] MEDS ORDERED: CEFD300C3 PO (11:16)
[2022-08-11] MEDS: ENOXAPARIN 100 MG/1 ML (LOVENOX) SYR SC SCH (11:20)
--- NOTE | 2022-08-11 17:39 | Discharge Summary ---
Discharge Summary Hospital Course Problems/Dx: (1) Atrial fibrillation with rapid ventricular response Status: Acute (2) Acute respiratory failure with hypoxia Status: Acute (3) Pulmonary hypertension Status: Acute (4) UTI (urinary tract infection) Status: Acute Qualifiers: Qualified Codes: N30.00 - Acute cystitis without hematuria (5) PNA (pneumonia) Status: Acute Qualifiers: (6) Chronic interstitial lung disease Status: Acute Hospital Course Date of Admission: Aug 07, 2022 at 01:18 Admission Diagnosis : AFib with RVR Family Physician/Provider: Sharon Jean MD Date of Discharge: 08/11/22 Discharge Diagnosis: AFib with RVR, sepsis due to pneumonia and possible UTI, acute respiratory failure with hypoxia, chronic interstitial lung disease Hospital Course: Yohana Elena is a 77 year old female who presented with shortness of breath and was admitted with AFib with RVR. Cardiology was consulted and assisted with her care. She was started on Cardizem and her heart rate improved. She was subtherapeutic on her coumadin and was bridged with Lovenox. Her INR was therapeutic at 2.1 at the time of discharge. She was treated for sepsis due to pneumonia and possible UTI. She will complete a course of Omnicef as an outpatient. She had an echo which showed pulmonary hypertension. Her imaging was consistent with chronic interstitial lung disease. She should follow up with pulmonology for further evaluation of these conditions and for sleep study. She was requiring 2 L with activity at the time of discharge and was set up with home oxygen. She should follow up with Dr. Jean next week as scheduled. She was discharged home in stable condition. Labs and Pending Lab Test: Laboratory Tests 08/10/22 20:06: Glucometer 128H 08/11/22 03:27: White Blood Count 14.1H, Red Blood Count 4.11, Hemoglobin 11.6, Hematocrit 37, Mean Corpuscular Volume 90, Mean Corpuscular Hemoglobin 28, Mean Corpuscular Hemoglobin Concent 31L, Red Cell Distribution Width 15.4H, Platelet Count 340, Mean Platelet Volume 11.7, Immature Granulocyte % (Auto) 2, Neutrophils (%) (Auto) 70, Lymphocytes (%) (Auto) 19, Monocytes (%) (Auto) 8, Eosinophils (%) (Auto) 0, Basophils (%) (Auto) 0, Neutrophils # (Auto) 9.8H, Lymphocytes # (Auto) 2.7, Monocytes # (Auto) 1.2H, Eosinophils # (Auto) 0.1, Basophils # (Auto) 0.1, Immature Granulocyte # (Auto) 0.3H, Prothrombin Time 23.3H, INR Comment 2.1H, Sodium Level 141, Potassium Level 4.5, Chloride Level 102, Carbon Dioxide Level 29, Anion Gap 10, Blood Urea Nitrogen 27H, Creatinine 1.02, Estimat Glomerular Filtration Rate 57, BUN/Creatinine Ratio 26, Glucose Level 90, Calcium Level 9.6, Corrected Calcium 10.6H, Phosphorus Level 3.1, Magnesium Level 1.9, Total Bilirubin 0.3, Aspartate Amino Transf (AST/SGOT) 19, Alanine Aminotransferase (ALT/SGPT) 17, Alkaline Phosphatase 81, Total Protein 6.9, Albumin 2.8L 08/11/22 10:37: Glucometer 99 Microbiology 08/07/22 MRSA Screen - Final, Complete MRSA not isolated 08/07/22 Urine Culture - Final, Complete Mixed Bacterial Joanie 08/06/22 Blood Culture - Preliminary, Resulted No growth Home Meds Active Prednisone 10 Mg Tab.ds.pk 10 Mg PO DAILY Take 6 tabs(60mg)daily,decrease by 1 tab(10mg)every other day. Diltiazem 24Hr ER (Diltiazem HCl) 300 Mg Cap.er.24h 300 Mg PO DAILY 30 Days Cefdinir 300 Mg Capsule 300 Mg PO BID 4 Days Reported Vicks Sinex (Oxymetazoline HCl) 0.05 % Mist 1 [place] NS DAILY PRN Pentoxifylline 400 Mg Tablet.er 400 Mg PO BID PRN Symbicort 80-4.5 Mcg Inhaler (Budesonide/Formoterol Fumarate) 80 Mcg-4.5 Mcg/ Actuation Hfa.aer.ad 1 Puff PO DAILY PRN Hydrochlorothiazide 50 Mg Tablet 50 Mg PO BID Warfarin Sodium 5 Mg Tablet 5 Mg PO DAILY Zyrtec-D Tablet (Cetirizine HCl/Pseudoephedrine) 1 Each Tab.er.12h 1 Tab PO BID PRN Tylenol Extra Strength (Acetaminophen) 500 Mg Tablet 1,000 Mg PO Q4H PRN TAKES 2 (500MG) TABS Allopurinol 100 Mg Tablet 100 Mg PO DAILY Assessment/Pt Instructions See instructions Discharge Planning: >30 minutes discharge planning Discharge Instructions Discharge Diet: Low Sodium Diet Activity as Tolerated: Yes Consultations Cardiology Discharge Physical Examination Vital Signs Vital Signs Date Time Temp Pulse Resp B/P (MAP) Pulse Ox O2 Delivery O2 Flow Rate FiO2 08/11/22 12:00 94 High Flow N/C 2.00 08/11/22 11:46 36.1 73 17 153/82 (105) 08/08/22 07:27 36 General Appearance: No Apparent Distress, Obese Respiratory: No Respiratory Distress, Crackles Cardiovascular: Regular Rate, Rhythm, No Murmur Gastrointestinal: Normal Bowel Sounds, Soft Extremity: Normal Inspection, No Pedal Edema Skin: Normal Color, Warm/Dry Neurologic/Psychiatric: Alert, Normal Mood/Affect Allergies: Coded Allergies: aspirin (Verified Adverse Reaction, Unknown, 10/24/17) States won't take it as is on warfarin Copy Copies To 1: SHARON JEAN MD Discharge Summary Date of Admission Aug 07, 2022 at 01:18 Date of Discharge Aug 11, 2022 at 13:18 Discharge Date: Aug 11, 2022 Discharge Time: 13:18 Admission Diagnosis a fib with RVR Consults/Procedures Consulations Cardiology Discharge Diagnosis Afib with RVR Chronic anticoagulation HTN Acute hypoxic respiratory failure Pulmonary hypertension Chronic interstitial lung disease Pneumonia Possible UTI Sepsis, resolved (1) Atrial fibrillation with rapid ventricular response Status: Acute (2) Acute respiratory failure with hypoxia Status: Acute (3) Pulmonary hypertension Status: Acute (4) UTI (urinary tract infection) Status: Acute Qualifiers: Qualified Codes: N30.00 - Acute cystitis without hematuria (5) PNA (pneumonia) Status: Acute Qualifiers: (6) Chronic interstitial lung disease Status: Acute MUNA ALMEIDA MD Aug 11, 2022 17:39
== END 2022-08-11 13:18 | disposition home or self-care (01) | DRG 871 ==
LOC: EDUNIT# 21:47 → ER 21:50 → ICU 08-07 01:18 → OBSVTOIN 08-07 01:18
PROVIDERS: ADMIT Family Medicine; ATTEND Internal Medicine
PROC: 5A0945A Assistance with Respiratory Ventilation, 24-96 Consecutive Hours, High Flow/Velocity Cannula (ICD-10-PCS; principal; 2022-08-10)
DX: A41.9 Sepsis, unspecified organism (principal); J96.01 Acute respiratory failure with hypoxia; N39.0 Urinary tract infection, site not specified; N17.9 Acute kidney failure, unspecified; J84.9 Interstitial pulmonary disease, unspecified; Z68.41 Body mass index [BMI] 40.0-44.9, adult; I48.91 Unspecified atrial fibrillation; I10 Essential (primary) hypertension; Z79.01 Long term (current) use of anticoagulants; M10.9 Gout, unspecified; I27.20 Pulmonary hypertension, unspecified; E66.9 Obesity, unspecified; G47.33 Obstructive sleep apnea (adult) (pediatric); Z79.899 Other long term (current) drug therapy; Z20.822 Contact with and (suspected) exposure to COVID-19
CPT/HCPCS: 36415; 71045; 71275; 80053; 80061; 81000; 82947; 83605; 83735; 83874; 83880; 84100; 84484; 85007; 85025; 85027; 85610; 85730; 87040; 87081; 87088; 87636; 93005; 93041; 93306; 94640; 94761; G0378

== ENCOUNTER 2022-11-15 10:40 | Inpatient (IN) | payer MEDICARE ==
[~2022-11-15] VITALS: Ht 160 cm; Wt 94.0 kg
[~2022-11-15 10:40] MED LIST changes: +AMLO-250 PO; +BUDE10.22 INH; +CEFD300C3 PO; +DILT180C85 PO; +DILT300C52 PO; +HYDR50TA6 PO; +OXYM15MI22 NS; +PRED10TA22 PO; +WARF-48 PO
[2022-11-15] MEDS ORDERED: FUROSEMIDE INJECTION 40 MG/4 ML VIAL IV SCH (11:30)
--- NOTE | 2022-11-15 11:44 | Consultation-Cardiology ---
HPI-Cardiology Cardiology Consultation: Date of Consultation 11/15/22 Time Seen by a Provider: 11:30 Date of Admission 11-15-22 Attending Physician Ian Davalos MD Admitting Physician Admitting Physician: Ian Davalos MD Attending Physician: Ian Davalos MD Consulting Physician Fran Macias MD HPI: Chief Complaint: A-fib with RVR Ms. Elena is a 77 yr old female admitted to ICU 8 as a direct admit from Dr. Davalos's office. She reports she has chronic VARNER, but feels it has been somewhat worse the last few days. She reports elevated HR of [address] Davalos's office. No c/o CP. Reports mild ankle swelling. No c/o fever, chills. No c/o n/v/d. She states she has been compliant with her meds. Review of Systems-Cardiology Review of Systems Constitutional: No chills, No fever, No malaise Eyes: No vision change Ears/Nose/Throat: No epistaxis; nasal drainage; No recent hearing loss Respiratory: As described under HPI Cardiovascular: As described under HPI Gastrointestinal: No constipation, No diarrhea, No nausea, No vomiting Genitourinary: No dysuria, No hematuria Musculoskeletal: no symptoms reported Skin: No rash on exposed areas, No ulcerations on exposed areas Psychiatric/Neurological: No anxiety, No depression, No seizure, No focal weakness, No syncope Hematologic: No bleeding abnormalities [id number]-Athocr Hx Patient Social History Alcohol Use?: No Pt feels they are or have been: No Past Medical History PMH As described under Assessment. Family Medical History Family Medical History: Reported family h/o mother having HTN and CAD. Reports brother has CAD. Family History: 19 MOTHER Dementia Diabetes mellitus Glaucoma Hypertension Myocardial infarction Asthma FH: stroke FH: bladder cancer G8 BROTHER Diabetes mellitus Hypertension Myocardial infarction FH: prostate cancer Kidney disease Allergies and Home Medications Allergies Coded Allergies: aspirin (Verified Adverse Reaction, Unknown, 10/24/17) States won't take it as is on warfarin Patient Home Medication List Acetaminophen (Tylenol Extra Strength) 500 Mg Tablet, 1,000 MG PO Q6H PRN for PAIN-MILD (1-4), (Reported) Entered as Reported by: RIA IBRAHIM on 10/24/17 1132 Last Action: Reviewed Allopurinol (Allopurinol) 100 Mg Tablet, 100 MG PO DAILY, (Reported) Entered as Reported by: ANGELICA GARCIA on 10/24/17 0731 Last Action: Reviewed Budesonide/Formoterol Fumarate (Symbicort 80-4.5 Mcg Inhaler) 80 Mcg-4.5 Mcg/Actuation Hfa.aer.ad, 2 PUFF INH BID PRN for SHORTNESS OF BREATH, (Reported) Entered as Reported by: JADA BOYER on 08/09/221106 Last Action: Reviewed Cetirizine HCl/Pseudoephedrine (Zyrtec-D Tablet) 5 Mg-120 Mg Tab.er.12h, 1 EA PO BID PRN for CONGESTION, (Reported) Entered as Reported by: RIA IBRAHIM on 10/24/17 113 Last Action: Reviewed Diltiazem HCl (Diltiazem ER) 300 Mg Capsule.er, 300 MG PO DAILY, (Reported) Entered as Reported by: LULA BOWERS on 11/15/221206 Last Action: Reviewed Hydrochlorothiazide (Hydrochlorothiazide) 50 Mg Tablet, 50 MG PO BID, (Reported) Entered as Reported by: AUNG HOPPER on 08/07/22222 Last Action: Reviewed Pentoxifylline (Pentoxifylline) 400 Mg Tablet.er, 400 MG PO BID, (Reported) Entered as Reported by: JADA BOYER on 08/09/221106 Last Action: Reviewed Warfarin Sodium (Warfarin Sodium) 5 Mg Tablet, 5 MG PO HS, (Reported) Entered as Reported by: AUNG HOPPER on 08/07/22222 Last Action: Reviewed Warfarin Sodium (Warfarin Sodium) 1 Mg Tablet, 1 MG PO HS, (Reported) Entered as Reported by: LULA BOWERS on 11/15/221206 Last Action: Reviewed Discontinued Medications Cefdinir (Cefdinir) 300 Mg Capsule, 300 MG PO BID Discontinued Reason: No Longer Taking Prescribed by: MUNA ALMEIDA on 08/11/221115 Last Action: Discontinued Diltiazem HCl (Diltiazem 24Hr ER) 300 Mg Cap.er.24h, 300 MG PO DAILY Discontinued Reason: Duplicate Order Prescribed by: MUNA ALMEIDA on 08/11/221115 Last Action: Discontinued Oxymetazoline HCl (Vicks Sinex) 0.05 % Mist, 1 [place] NS DAILY PRN for ALLERGIES, (Reported) Discontinued Reason: No Longer Taking Entered as Reported by: JADA BOYER on 08/09/22 1108 Last Action: Discontinued Prednisone (Prednisone) 10 Mg Tab.ds.pk, 10 MG PO DAILY Discontinued Reason: No Longer Taking Prescribed by: MUNA ALMEIDA on 08/11/22 1116 Last Action: Discontinued Physical Exam-Cardiology Physical Exam Vital Signs/I&O 11/15/22 11/15/22 11/15/22 11/15/22 21:00 21:42 21:52 22:00 Pulse 86 90 90 86 Resp 14 B/P (MAP) 120/68 (86) 106/72 (85) Pulse Ox 97 98 98 97 O2 Delivery Nasal Cannula NIV CPAP NIV CPAP O2 Flow Rate 4.00 30.00 30.00 30.00 11/15/22 11/15/22 11/16/22 11/16/22 23:00 23:59 00:00 01:00 Pulse 93 80 81 Resp 18 B/P (MAP) 135/74 (86) 131/72 (91) 123/81 (92) Pulse Ox 94 96 97 O2 Delivery NIV CPAP NIV Bilevel NIV CPAP NIV CPAP O2 Flow Rate 30.00 30.00 30.00 FiO2 30 11/16/22 11/16/22 11/16/22 11/16/22 01:00 02:00 02:25 03:00 Pulse 80 82 92 88 Resp 20 18 B/P (MAP) 127/77 (92) 95/72 (83) Pulse Ox 97 100 97 O2 Delivery NIV CPAP NIV CPAP O2 Flow Rate 30.00 30.00 30.00 11/16/22 11/16/22 11/16/22 11/16/22 04:00 04:11 05:00 06:00 Pulse 87 87 81 B/P (MAP) 96/58 (71) 104/59 (83) 112/72 (89) Pulse Ox 96 95 97 O2 Delivery NIV CPAP NIV Bilevel NIV CPAP NIV CPAP O2 Flow Rate 30.00 30.00 30.00 FiO2 30 11/16/22 11/16/22 07:36 07:56 Temp 36.4 Pulse 88 B/P (MAP) 11/16/22 00:00 Intake Total 1250 ml Output Total 1625 ml Balance -375 ml Capillary Refill : Constitutional: AAO x 3, well-developed, well-nourished HEENT: PERRL, hearing is well preserved, oral hygience is good Neck: No carotid bruit; carotid pulses are 2 + bilaterally Respiratory: No accessory muscle use, No respiratory distress; chest expansion is symmetric, chest is bilaterally symmetric, other (good air entry) Cardiovascular: No JVD; tachycardia Gastrointestinal: No tender; soft, round, audible bowel sounds Extremities: no lower extremity edema bilateral Neurologic/Psychiatric: other (moves all extremities) Skin: No rash on exposed areas, No ulcerations on exposed areas Data Review Labs Laboratory Tests 11/15/22 12:08: White Blood Count 8.7, Red Blood Count 4.86, Hemoglobin 13.1, Hematocrit 41, Mean Corpuscular Volume 84, Mean Corpuscular Hemoglobin 27, Mean Corpuscular Hemoglobin Concent 32, Red Cell Distribution Width 15.5H, Platelet Count 284, Mean Platelet Volume 11.1, Immature Granulocyte % (Auto) 0, Neutrophils (%) (Auto) 58, Lymphocytes (%) (Auto) 27, Monocytes (%) (Auto) 10, Eosinophils (%) ( Auto) 4, Basophils (%) (Auto) 1, Neutrophils # (Auto) 5.0, Lymphocytes # (Auto) 2.4, Monocytes # (Auto) 0.9, Eosinophils # (Auto) 0.3, Basophils # (Auto) 0.1, Immature Granulocyte # (Auto) 0.0, Prothrombin Time 24.4H, INR Comment 2.2H, Sodium Level 143, Potassium Level 3.4L, Chloride Level 101, Carbon Dioxide Level 30, Anion Gap 12, Blood Urea Nitrogen 22H, Creatinine 1.19, Estimat Glomerular Filtration Rate 47, BUN/Creatinine Ratio 18, Glucose Level 99, Calcium Level 9.7, Corrected Calcium 9.9, Phosphorus Level 2.9, Magnesium Level 1.4L, Total Bilirubin 0.6, Aspartate Amino Transf (AST/SGOT) 13, Alanine Aminotransferase (ALT/SGPT) 11, Alkaline Phosphatase 86, Total Protein 8.0, Albumin 3.7 11/16/22 04:05: White Blood Count 7.9, Red Blood Count 4.51, Hemoglobin 12.0, Hematocrit 38, Mean Corpuscular Volume 84, Mean Corpuscular Hemoglobin 27, Mean Corpuscular Hemoglobin Concent 32, Red Cell Distribution Width 15.7H, Platelet Count 260, Mean Platelet Volume 11.5, Immature Granulocyte % (Auto) 0, Neutrophils (%) (Auto) 50, Lymphocytes (%) (Auto) 30, Monocytes (%) (Auto) 12, Eosinophils (%) (Auto) 6, Basophils (%) (Auto) 1, Neutrophils # (Auto) 4.0, Lymphocytes # (Auto) 2.4, Monocytes # (Auto) 1.0, Eosinophils # (Auto) 0.5H, Basophils # (Auto) 0.1, Immature Granulocyte # (Auto) 0.0, Sodium Level 140, Potassium Level 3.3L, Chloride Level 100, Carbon Dioxide Level 27, Anion Gap 13, Blood Urea Nitrogen 26H, Creatinine 1.33H, Estimat Glomerular Filtration Rate 41, BUN/Creatinine Ratio 20, Glucose Level 87, Calcium Level 9.6, Corrected Calcium 10.1, Phosphorus Level 4.2, Magnesium Level 1.8, Total Bilirubin 0.6, Aspartate Amino Transf (AST/SGOT) 16, Alanine Aminotransferase (ALT/SGPT) 8, Alkaline Phosphatase 74, Total Protein 7.4, Albumin 3.4 ECG Impression ECG Initial ECG Rhythm: S.Tach A/P-Cardiology Assessment/Admission Diagnosis PAF with RVR - echo on 08/07/22: LVEF 55-60%, mild conc LVH, AoV sclerosis w/o stenosis, PASP 50-55 mmHg - warfarin for stroke prophylaxis - managed as out pt by Dr. Davalos (reports intolerance to NOAC) Hypertension - controlled Obesity with suspected DIANE Mod pulm htn - may be secondary to untreated DIANE Discussion and Recomendations H/O PAF - currently sinus tachycardia - continue home Cardizem CD dose - continue warfarin tx (awaiting INR) - add BB Progressive dyspnea - ? diastolic CHF - treat with diuretics Monitor lab Replace electrolytes as indicated We would like to thank medical services for this consult NOHEMI MON Nov 15, 2022 11:44
[2022-11-15] MEDS ORDERED: WRF1T PO (12:07)
[2022-11-15] MEDS ORDERED: DILT300C38 PO (12:07)
--- NOTE | 2022-11-15 12:15 | Diagnostic Imaging Report ---
INDICATION: Atrial fibrillation, rapid ventricular response TECHNIQUE: Single view chest 11:16 AM CORRELATION STUDY: 08/10/2022 FINDINGS: Heart size and mediastinum are enlarged and prominent. Vasculature appears slightly increased from prior. Prominent interstitial markings throughout both lung hopson. A large part may be chronic. However, there does appear to be slight increase, may reflect a component of edema particularly in the right upper lung field. Superimposed infiltrate of the right upper lobe, rales of the right lung base not excluded. Probable small pleural effusions. IMPRESSION: 1. Increasing severity of edema from prior. Suggested superimposed infiltrate and/or edema about the right upper and lower lung hopson along with small effusions. Dictated by: Dictated on workstation # [id number]
[2022-11-15] MEDS: dilTIAZem DRIP 125 MG/125 ML DRIP IV SCH (12:16)
[2022-11-15 12:17] LABS: BASOPHILS # (AUTO) 0.1 10^3/uL (0.0-0.1); BASOPHILS % (AUTO) 1 % (0-10); EOSINOPHILS # (AUTO) 0.3 10^3/uL (0.0-0.3); EOSINOPHILS % (AUTO) 4 % (0-10); HEMATOCRIT 41 % (35-52); HEMOGLOBIN 13.1 g/dL (11.5-16.0); LYMPHOCYTES # (AUTO) 2.4 10^3/uL (1.0-4.0); LYMPHOCYTES % (AUTO) 27 % (12-44); MEAN CORPUSCULAR HEMOGLOBIN 27 pg (25-34); MEAN CORPUSCULAR HGB CONC 32 g/dL (32-36); MEAN CORPUSCULAR VOLUME 84 fL (80-99); MEAN PLATELET VOLUME 11.1 fL (9.0-12.2); MONOCYTES # (AUTO) 0.9 10^3/uL (0.0-1.0); MONOCYTES % (AUTO) 10 % (0-12); NEUTROPHILS % (AUTO) 58 % (42-75); PLATELET COUNT 284 10^3/uL (130-400); WHITE BLOOD COUNT 8.7 10^3/uL (4.3-11.0)
[2022-11-15 12:30] LABS: INR 2.2 (0.8-1.4); PROTHROMBIN TIME PATIENT 24.4 SEC (12.2-14.7)
[2022-11-15 12:37] LABS: ALBUMIN 3.7 GM/DL (3.2-4.5); BILIRUBIN,TOTAL 0.6 MG/DL (0.1-1.0); CALCIUM 9.7 MG/DL (8.5-10.1); CREATININE SERUM 1.19 MG/DL (0.60-1.30); MAGNESIUM 1.4 MG/DL (1.6-2.4); PHOSPHORUS 2.9 MG/DL (2.3-4.7); POTASSIUM 3.4 MMOL/L (3.6-5.0)
[2022-11-15] MEDS ORDERED: NS IV 500 ML 500 ML IV PRN (13:30)
[2022-11-15] MEDS ORDERED: FUROSEMIDE INJECTION 40 MG/4 ML VIAL IVP SCH (17:00)
[2022-11-15] MEDS ORDERED: MAGNESIUM 2 GM/50 ML IVPB 50 ML IV ONE (17:15)
[2022-11-15] MEDS ORDERED: POTASSIUM CHLORIDE 20 MEQ TABLET PO NR (17:30)
[2022-11-15] MEDS ORDERED: warFARin 3 MG (COUMADIN) TAB PO SCH (18:00)
[2022-11-15] MEDS: POTASSIUM CHLORIDE 10 MEQ TABLET PO SCH (18:39)
--- NOTE | 2022-11-15 18:41 | Consultation-Cardiology ---
HPI-Cardiology Cardiology Consultation: Date of Consultation 11/15/22 Time Seen by a Provider: 18:15 Date of Admission Attending Physician Ian Davalos MD Admitting Physician Admitting Physician: Ian Davalos MD Attending Physician: Ian Davalos MD Consulting Physician AWA GOMEZ MD, MA, FACP, FACC, FSCAI, CCDS HPI: Chief Complaint: A-fib with RVR Ms. Elena is a 77 yr old female admitted to ICU 8 as a direct admit from Dr. Davalos's office. She reports she has chronic VARNER, but feels it has been somewhat worse the last few days. She reports elevated HR of [address] Davalos's office. No c/o CP. Reports mild ankle swelling. No c/o fever, chills. No c/o n/v/d. She states she has been compliant with her meds. Review of Systems-Cardiology Review of Systems Constitutional: No chills, No fever, No malaise Eyes: No vision change Ears/Nose/Throat: No epistaxis; nasal drainage; No recent hearing loss Respiratory: As described under HPI Cardiovascular: As described under HPI Gastrointestinal: No constipation, No diarrhea, No nausea, No vomiting Genitourinary: No dysuria, No hematuria Musculoskeletal: no symptoms reported Skin: No rash on exposed areas, No ulcerations on exposed areas Psychiatric/Neurological: No anxiety, No depression, No seizure, No focal weakness, No syncope Hematologic: No bleeding abnormalities [id number]-Cuwrek Hx Patient Social History Alcohol Use?: No Pt feels they are or have been: No Past Medical History PMH As described under Assessment. Family Medical History Family Medical History: Reported family h/o mother having HTN and CAD. Reports brother has CAD. Family History: Asthma 19 MOTHER Dementia 19 MOTHER Diabetes mellitus 19 MOTHER G8 BROTHER FH: bladder cancer 19 MOTHER FH: prostate cancer G8 BROTHER FH: stroke 19 MOTHER Glaucoma 19 MOTHER Hypertension 19 MOTHER G8 BROTHER Kidney disease G8 BROTHER Myocardial infarction 19 MOTHER G8 BROTHER Allergies and Home Medications Allergies Coded Allergies: aspirin (Verified Adverse Reaction, Unknown, 10/24/17) States won't take it as is on warfarin Patient Home Medication List Home Medication List Reviewed: Yes Acetaminophen (Tylenol Extra Strength) 500 Mg Tablet, 1,000 MG PO Q6H PRN for PAIN-MILD (1-4), (Reported) Entered as Reported by: RIA IBRAHIM on 10/24/171131 Last Action: Reviewed Allopurinol (Allopurinol) 100 Mg Tablet, 100 MG PO DAILY, (Reported) Entered as Reported by: ANGELICA GARCIA on 10/24/17 0731 Last Action: Reviewed Budesonide/Formoterol Fumarate (Symbicort 80-4.5 Mcg Inhaler) 80 Mcg-4.5 Mcg/Actuation Hfa.aer.ad, 2 PUFF INH BID PRN for SHORTNESS OF BREATH, (Reported) Entered as Reported by: JADA BOYER on 08/09/221106 Last Action: Reviewed Cetirizine HCl/Pseudoephedrine (Zyrtec-D Tablet) 5 Mg-120 Mg Tab.er.12h, 1 EA PO BID PRN for CONGESTION, (Reported) Entered as Reported by: RIA IBRAHIM on 10/24/171131 Last Action: Reviewed Diltiazem HCl (Diltiazem ER) 300 Mg Capsule.er, 300 MG PO DAILY, (Reported) Entered as Reported by: LULA BOWERS on 11/15/221206 Last Action: Reviewed Hydrochlorothiazide (Hydrochlorothiazide) 50 Mg Tablet, 50 MG PO BID, (Reported) Entered as Reported by: AUNG HOPPER on 08/07/22222 Last Action: Reviewed Pentoxifylline (Pentoxifylline) 400 Mg Tablet.er, 400 MG PO BID, (Reported) Entered as Reported by: JADA BOYER on 08/09/221106 Last Action: Reviewed Warfarin Sodium (Warfarin Sodium) 5 Mg Tablet, 5 MG PO HS, (Reported) Entered as Reported by: AUNG OHPPER on 08/07/22222 Last Action: Reviewed Warfarin Sodium (Warfarin Sodium) 1 Mg Tablet, 1 MG PO HS, (Reported) Entered as Reported by: LULA BOWERS on 11/15/221206 Last Action: Reviewed Discontinued Medications Cefdinir (Cefdinir) 300 Mg Capsule, 300 MG PO BID Discontinued Reason: No Longer Taking Prescribed by: MUNA ALMEIDA on 08/11/22 111 Last Action: Discontinued Diltiazem HCl (Diltiazem 24Hr ER) 300 Mg Cap.er.24h, 300 MG PO DAILY Discontinued Reason: Duplicate Order Prescribed by: MUNA ALMEIDA on 08/11/221115 Last Action: Discontinued Oxymetazoline HCl (Vicks Sinex) 0.05 % Mist, 1 SPRAY NS DAILY PRN for ALLERGIES, (Reported) Discontinued Reason: No Longer Taking Entered as Reported by: JADA BOYER on 08/09/228 Last Action: Discontinued Prednisone (Prednisone) 10 Mg Tab.ds.pk, 10 MG PO DAILY Discontinued Reason: No Longer Taking Prescribed by: MUNA ALMEIDA on 08/11/221115 Last Action: Discontinued Physical Exam-Cardiology Physical Exam Vital Signs/I&O 11/15/22 11/15/22 11/15/22 11/15/22 10:45 10:45 10:45 11:00 Temp 36.2 Pulse 118 118 B/P (MAP) 130/99 (109) 129/110 (116) Pulse Ox 97 O2 Delivery Nasal Cannula Nasal Cannula Nasal Cannula O2 Flow Rate 5.00 4.00 4.00 11/15/22 11/15/22 11/15/22 11/15/22 11:06 11:15 11:30 11:45 Pulse 124 111 113 101 B/P (MAP) 141/98 (112) 131/78 (95) 135/105 (115) Pulse Ox 97 96 95 O2 Delivery Nasal Cannula Nasal Cannula Nasal Cannula O2 Flow Rate 4.00 4.00 4.00 11/15/22 11/15/22 11/15/22 11/15/22 12:00 12:00 12:03 12:04 Temp 36.2 36.2 Pulse 99 B/P (MAP) 145/93 (110) Pulse Ox 96 O2 Delivery Nasal Cannula Nasal Cannula O2 Flow Rate 5.00 4.00 11/15/22 11/15/22 11/15/22 11/15/22 12:15 12:16 12:30 12:30 Pulse 95 92 93 93 B/P (MAP) 132/92 (105) 132/92 134/100 (111) Pulse Ox 90 100 O2 Delivery Nasal Cannula Nasal Cannula O2 Flow Rate 4.00 4.00 11/15/22 11/15/22 11/15/22 11/15/22 12:45 13:00 13:15 13:30 Pulse 105 101 90 85 B/P (MAP) 110/62 (78) 127/85 (99) 112/73 (86) 117/71 (86) Pulse Ox 90 96 100 96 O2 Delivery Nasal Cannula Nasal Cannula Nasal Cannula Nasal Cannula O2 Flow Rate 4.00 4.00 4.00 4.00 11/15/22 11/15/22 11/15/22 11/15/22 13:45 14:00 14:44 15:00 Pulse 92 96 93 B/P (MAP) 119/84 (96) 122/73 (89) 128/69 (88) Pulse Ox 97 95 97 O2 Delivery Nasal Cannula Nasal Cannula Nasal Cannula Nasal Cannula O2 Flow Rate 4.00 4.00 4.00 4.00 11/15/22 11/15/22 11/15/22 11/15/22 16:00 16:00 16:31 17:00 Temp 36.4 Pulse 86 88 B/P (MAP) 117/68 (84) 128/71 (90) Pulse Ox 98 99 O2 Delivery Nasal Cannula Nasal Cannula Nasal Cannula O2 Flow Rate 4.00 5.00 4.00 11/15/22 18:00 Pulse 92 B/P (MAP) 133/82 (99) Pulse Ox 99 O2 Delivery Nasal Cannula O2 Flow Rate 4.00 Capillary Refill : Constitutional: AAO x 3, well-developed, well-nourished HEENT: PERRL, hearing is well preserved, oral hygience is good Neck: No carotid bruit; carotid pulses are 2 + bilaterally Respiratory: No accessory muscle use, No respiratory distress; chest expansion is symmetric, chest is bilaterally symmetric, other (good air entry) Cardiovascular: No JVD; tachycardia Gastrointestinal: No tender; soft, round, audible bowel sounds Extremities: no lower extremity edema bilateral Neurologic/Psychiatric: other (moves all extremities) Skin: No rash on exposed areas, No ulcerations on exposed areas Data Review Labs Laboratory Tests 11/15/22 12:08: White Blood Count 8.7, Red Blood Count 4.86, Hemoglobin 13.1, Hematocrit 41, Mean Corpuscular Volume 84, Mean Corpuscular Hemoglobin 27, Mean Corpuscular Hemoglobin Concent 32, Red Cell Distribution Width 15.5H, Platelet Count 284, Mean Platelet Volume 11.1, Immature Granulocyte % (Auto) 0, Neutrophils (%) (Auto) 58, Lymphocytes (%) (Auto) 27, Monocytes (%) (Auto) 10, Eosinophils (%) (Auto) 4, Basophils (%) (Auto) 1, Neutrophils # (Auto) 5.0, Lymphocytes # (Auto) 2.4, Monocytes # (Auto) 0.9, Eosinophils # (Auto) 0.3, Basophils # (Auto) 0.1, Immature Granulocyte # (Auto) 0.0, Prothrombin Time 24.4H, INR Comment 2.2H, Sodium Level 143, Potassium Level 3.4L, Chloride Level 101, Carbon Dioxide Level 30, Anion Gap 12, Blood Urea Nitrogen 22H, Creatinine 1.19, Estimat Glomerular Filtration Rate 47, BUN/Creatinine Ratio 18, Glucose Level 99, Calcium Level 9.7, Corrected Calcium 9.9, Phosphorus Level 2.9, Magnesium Level 1.4L, Total Bilirubin 0.6, Aspartate Amino Transf (AST/SGOT) 13, Alanine Aminotransferase (ALT/SGPT) 11, Alkaline Phosphatase 86, Total Protein 8.0, Albumin 3.7 A/P-Cardiology Assessment/Admission Diagnosis PAF with RVR; currently sinus with PACs (including blocked PACs) and a few PVCs - echo on 08/07/22: LVEF 55-60%, mild conc LVH, AoV sclerosis w/o stenosis, PASP 50-55 mmHg - warfarin for stroke prophylaxis - managed as out pt by Dr. Davalos (reports intolerance to NOAC) Hypertension - controlled Obesity with suspected DIANE Mod pulm htn - may be secondary to untreated DIANE Discussion and Recomendations H/O PAF - currently sinus tachycardia - continue home Cardizem CD dose - continue warfarin tx (awaiting INR) - add BB Progressive dyspnea - ? diastolic CHF - treat with diuretics as needed Monitor lab Replace electrolytes as indicated We would like to thank Medical services for this consult AWA GOMEZ MD FACP FAC CCDS Nov 15, 2022 18:41
[2022-11-15] MEDS: MAGNESIUM 1 GM/D5W 100 ML IVPB IV SCH (18:53)
--- NOTE | 2022-11-15 19:13 | History & Physical-Hospitalist ---
History of Present Illness HPI/Chief Complaint Mrs. Elena is a 77-year-old white female who reports have been feeling increasing fatigue with dyspnea on exertion since Tuesday. It became acutely worse today and she reports she felt similar to when she was in atrial fibrillation with rapid ventricular response required admission in July. She denied chest pain denied PND but had increasing orthopnea and denied significant pedal edema. She denied cough but does have history of asthma and was concerned that this may be an exacerbation. She had no night sweats chills or fever. She presented to the office feeling little lightheaded and shortness of breath walking in from the exam room her initial saturation was 50% on room air increased to 84% within a couple of minutes with resolution of tachypnea. Her heart rate was irregular and in the upper 120s to low 130 range and she was subsequently admitted with presumed atrial fibrillation with rapid ventricular response and secondary congestive heart failure. Date Seen 11/15/22 Time Seen by a Provider: 11:00 Attending Physician Sharon Jean MD PCP Admitting Physician: Sharon Jean MD Attending Physician: Sharon Jean MD Referring Physician Date of Admission Nov 15, 2022 at 10:40 Home Medications & Allergies Home Medications Reviewed patient Home Medication Reconciliation performed by pharmacy medication reconciliations senior wind turbine technician and/or nursing. Patients Allergies have been reviewed. Allergies Allergies Coded Allergies aspirin (Verified Adverse Reaction, Unknown, 10/24/17) States won't take it as is on warfarin Past [id number]-Jyfpyu-Syjbvv Hx Patient Social History Tobacco Use?: No Use of E-Cig and/or Vaping dev: No Substance use?: No Alcohol Use?: No Pt feels they are or have been: No Immunizations Up To Date Tetanus Booster (TDap): Unknown Hepatitis A: No Hepatitis B: No Seasonal Allergies Seasonal Allergies: Yes Current Status status: No status: No Advance Directives: No Communicates: Verbally Primary Language: Cypriot Preferred Spoken Language: Cypriot Is interpretation needed?: No Sensory deficits: Vision impairment Implanted or Applied Medical D: None Past Medical History Pneumonia Atrial Fibrillation, Hypertension UTI-Chronic Abdominal Hernia Gout Blood Disorders: Yes (Anemia after hysterectomy) Adverse Reaction/Blood Tranf: No Family Medical History Asthma 19 MOTHER Dementia 19 MOTHER Diabetes mellitus 19 MOTHER G8 BROTHER FH: bladder cancer 19 MOTHER FH: prostate cancer G8 BROTHER FH: stroke 19 MOTHER Glaucoma 19 MOTHER Hypertension 19 MOTHER G8 BROTHER Kidney disease G8 BROTHER Myocardial infarction 19 MOTHER G8 BROTHER Review of Systems Constitutional: see HPI Physical Exam Physical Exam Vital Signs Vital Signs - First Documented 11/15/22 11/15/22 10:45 11:00 Temp 36.2 Pulse 118 B/P (MAP) 130/99 (109) Pulse Ox 97 O2 Delivery Nasal Cannula O2 Flow Rate 5.00 Capillary Refill : Height, Weight, BMI Height: 5'3.00" Weight: 209lbs. 8.0oz. 95.871804cw; 36.44 BMI Method:Stated General Appearance: Anxious, Mild Distress Respiratory: No Accessory Muscle Use, Other (Rales noted to the mid lung hopson bilaterally without wheezing or rhonchi) Cardiovascular: No Edema, No Gallop, No JVD, No Murmur, Irregularly Irregular, Tachycardia Gastrointestinal: Normal Bowel Sounds, No Organomegaly, No Pulsatile Mass, Non Tender, Soft Extremity: Normal Inspection, Non Tender, No Pedal Edema Neurologic/Psychiatric: Alert, Oriented x3 Skin: Normal Color, Warm/Dry Results Results/Procedures Labs Laboratory Tests 11/15/22 12:08 Patient resulted labs reviewed. Assessment/Plan Admission Diagnosis 1. Presumed atrial fibrillation with rapid ventricular response and secondary heart failure aggravating hypoxemia. We will admit to the intensive care unit administer Lasix IV diltiazem as she does not have a history of systolic heart failure with cardiology consultation. Will obtain CBC CMP TSH portable chest x- ray and ECG. 2. Past history of paroxysmal atrial fibrillation as well as DVT with pulmonary embolism in the distant past patient is on Coumadin and INR will be checked in as long as is not supratherapeutic continue 6 mg Coumadin daily. 3. History of hypertension which has been under good control. Admission Status: Inpatient Order (span 2 midnights) Reason for Inpatient Admission: See admission diagnosis. Critical Care Critically Ill Patient SHARON JEAN MD Nov 15, 2022 19:13
[2022-11-15 21:42] VITALS: BP 120/68
[2022-11-16 02:25] VITALS: BP 127/77
[2022-11-16 04:33] LABS: BASOPHILS # (AUTO) 0.1 10^3/uL (0.0-0.1); BASOPHILS % (AUTO) 1 % (0-10); EOSINOPHILS # (AUTO) 0.5 10^3/uL (0.0-0.3); EOSINOPHILS % (AUTO) 6 % (0-10); HEMATOCRIT 38 % (35-52); LYMPHOCYTES # (AUTO) 2.4 10^3/uL (1.0-4.0); LYMPHOCYTES % (AUTO) 30 % (12-44); MEAN CORPUSCULAR HEMOGLOBIN 27 pg (25-34); MEAN CORPUSCULAR HGB CONC 32 g/dL (32-36); MEAN CORPUSCULAR VOLUME 84 fL (80-99); MEAN PLATELET VOLUME 11.5 fL (9.0-12.2); MONOCYTES % (AUTO) 12 % (0-12); NEUTROPHILS % (AUTO) 50 % (42-75); PLATELET COUNT 260 10^3/uL (130-400); WHITE BLOOD COUNT 7.9 10^3/uL (4.3-11.0)
[2022-11-16 04:47] LABS: ALBUMIN 3.4 GM/DL (3.2-4.5); POTASSIUM 3.3 MMOL/L (3.6-5.0)
[2022-11-16 04:48] LABS: CALCIUM 9.6 MG/DL (8.5-10.1)
[2022-11-16 04:50] LABS: TOTAL PROTEIN 7.4 GM/DL (6.4-8.2)
[2022-11-16 04:51] LABS: BILIRUBIN,TOTAL 0.6 MG/DL (0.1-1.0)
[2022-11-16 04:53] LABS: CREATININE SERUM 1.33 MG/DL (0.60-1.30); PHOSPHORUS 4.2 MG/DL (2.3-4.7)
[2022-11-16 04:56] LABS: MAGNESIUM 1.8 MG/DL (1.6-2.4)
[2022-11-16] MEDS ORDERED: POTASSIUM BICARB 20 MEQ effervescent TABLET PO SCH (06:00)
[2022-11-16] MEDS ORDERED: MAGNESIUM 1 GM/100 ML IVPB 100 ML IV SCH (06:00)
[2022-11-16] MEDS ORDERED: POTASSIUM CL 10MEQ/50ML IVPB 50 ML IV SCH (06:00)
[2022-11-16] MEDS ORDERED: POTASSIUM CHLORIDE 20 MEQ TABLET PO SCH (06:00)
[2022-11-16] MEDS: MAGNESIUM 1 GM/100 ML IVPB 100 ML IV SCH ×2 (06:25→08:41)
[2022-11-16] MEDS: POTASSIUM CHLORIDE 20 MEQ TABLET PO SCH ×2 (06:25→08:41)
--- NOTE | 2022-11-16 08:30 | Tele-ICU Consult ---
History of Present Illness History of Present Illness Date Seen by Provider: Nov 16, 2022 Time Seen by Provider: 08:25 Date of Admission (Tele-ICU Physician , Progress Note ) Service provided via interactive audio and video telecommunications E-CARE system to a patient admitted to ICU bed in [facility]. Patient is seen today due to persistent need of ICU care Available chart/ vitals / labs / Images reviewed Video assessment done using teleICU camera, rest of exam as per RN 77 yo F admitted for a fib with RVR with V rate in 120's was supposed to bestarted on IV Cardizem, now on po Cardizem also on po warfarin 6 mg, V rate now in 80's At home on po Cardizem,. Warfarin,, Hx of PAF PMH obesity, DIANE, moderate pulm htn 50-55 Allergies and Home Medications Allergies Coded Allergies: aspirin (Verified Adverse Reaction, Unknown, 10/24/17) States won't take it as is on warfarin Home Medications Acetaminophen 500 Mg Tablet, 1,000 MG PO Q6H PRN for PAIN-MILD (1-4), (Reported) TAKES 2 (500MG) TABS Allopurinol 100 Mg Tablet, 100 MG PO DAILY, (Reported) Budesonide/Formoterol Fumarate 80 Mcg-4.5 Mcg/Actuation Hfa.aer.ad, 2 PUFF INH BID PRN for SHORTNESS OF BREATH, (Reported) Cetirizine HCl/Pseudoephedrine 5 Mg-120 Mg Tab.er.12h, 1 EA PO BID PRN for CONGESTION, (Reported) Diltiazem HCl 300 Mg Capsule.er, 300 MG PO DAILY, (Reported) Hydrochlorothiazide 50 Mg Tablet, 50 MG PO BID, (Reported) Pentoxifylline 400 Mg Tablet.er, 400 MG PO BID, (Reported) Warfarin Sodium 5 Mg Tablet, 5 MG PO HS, (Reported) TAKES 1MG +5MG TOGETHER TO EQUAL 6MG Warfarin Sodium 1 Mg Tablet, 1 MG PO HS, (Reported) TAKES 1MG +5MG TOGETHER TO EQUAL 6MG Past Medical/Social/Family Hx Patient Social History Tobacco Use?: No Use of E-Cig and/or Vaping dev: No Substance use?: No Alcohol Use?: No Pt stated abuse/neglect: No Immunizations Up To Date Influenza Vaccine Up-to-Date: Yes; Up-to-Date Tetanus Booster (TDap): Unknown Hepatitis A: No Hepatitis B: No TB Skin Test: None Current Status status: No status: No Advance Directives: No Communicates: Verbally Primary Language: Russian Preferred Spoken Language: Russian Is interpretation needed?: No Sensory deficits: Vision impairment Implanted or Applied Medical D: None Review of Systems Constitutional: see HPI EENTM: see HPI Respiratory: see HPI Cardiovascular: see HPI Gastrointestinal: see HPI Genitourinary: see HPI Musculoskeletal: see HPI Skin: see HPI Psychiatric/Neurological: See HPI Focused Exam Height, Weight, BMI Height: 5'3.00" Weight: 209lbs. 8.0oz. 95.839677zl; 36.44 BMI Method:Stated Exam Exam Patient acknowledged, consented, and participated in this virtual visit which was conducted using real time audio/video Vital Signs Date Time Temp Pulse Resp B/P (MAP) Pulse Ox O2 Delivery O2 Flow Rate FiO2 11/16/22 07:56 36.4 11/16/22 07:36 88 11/16/22 06:00 81 112/72 (89) 97 NIV CPAP 30.00 11/16/22 05:00 87 104/59 (83) 95 NIV CPAP 30.00 11/16/22 04:11 NIV Bilevel 30 11/16/22 04:00 87 96/58 (71) 96 NIV CPAP 30.00 11/16/22 03:00 88 95/72 (83) 97 NIV CPAP 30.00 11/16/22 02:25 92 18 100 30.00 11/16/22 02:00 82 20 127/77 (92) 97 NIV CPAP 30.00 11/16/22 01:00 80 11/16/22 01:00 81 18 123/81 (92) 97 NIV CPAP 30.00 11/16/22 00:00 80 131/72 (91) 96 NIV CPAP 30.00 11/15/22 23:59 NIV Bilevel 30 11/15/22 23:00 93 135/74 (86) 94 NIV CPAP 30.00 11/15/22 22:00 86 106/72 (85) 97 NIV CPAP 30.00 11/15/22 21:52 90 98 NIV CPAP 30.00 11/15/22 21:42 90 14 98 30.00 11/15/22 21:00 86 120/68 (86) 97 Nasal Cannula 4.00 11/15/22 20:05 Nasal Cannula 4.00 11/15/22 20:00 78 18 97/54 (68) 97 Nasal Cannula 4.00 11/15/22 19:30 89 117/58 (83) 98 Nasal Cannula 4.00 11/15/22 19:15 90 111/86 (92) 95 Nasal Cannula 4.00 11/15/22 19:00 93 11/15/22 19:00 98 135/90 (100) 78 Nasal Cannula 4.00 11/15/22 18:00 92 133/82 (99) 99 Nasal Cannula 4.00 11/15/22 17:00 88 128/71 (90) 99 Nasal Cannula 4.00 11/15/22 16:31 36.4 11/15/22 16:00 Nasal Cannula 5.00 11/15/22 16:00 86 117/68 (84) 98 Nasal Cannula 4.00 11/15/22 15:00 93 128/69 (88) 97 Nasal Cannula 4.00 11/15/22 14:44 Nasal Cannula 4.00 11/15/22 14:00 96 122/73 (89) 95 Nasal Cannula 4.00 11/15/22 13:45 92 119/84 (96) 97 Nasal Cannula 4.00 11/15/22 13:30 85 117/71 (86) 96 Nasal Cannula 4.00 11/15/22 13:15 90 112/73 (86) 100 Nasal Cannula 4.00 11/15/22 13:00 101 127/85 (99) 96 Nasal Cannula 4.00 11/15/22 12:45 105 110/62 (78) 90 Nasal Cannula 4.00 11/15/22 12:30 93 134/100 (111) 100 Nasal Cannula 4.00 11/15/22 12:30 93 11/15/22 12:16 92 132/92 11/15/22 12:15 95 132/92 (105) 90 Nasal Cannula 4.00 11/15/22 12:04 36.2 11/15/22 12:03 36.2 11/15/22 12:00 99 145/93 (110) 96 Nasal Cannula 4.00 11/15/22 12:00 Nasal Cannula 5.00 11/15/22 11:45 101 135/105 (115) 95 Nasal Cannula 4.00 11/15/22 11:30 113 131/78 (95) 96 Nasal Cannula 4.00 11/15/22 11:15 111 141/98 (112) 97 Nasal Cannula 4.00 11/15/22 11:06 124 11/15/22 11:00 118 129/110 (116) 97 Nasal Cannula 4.00 11/15/22 10:45 36.2 11/15/22 10:45 118 130/99 (109) Nasal Cannula 4.00 11/15/22 10:45 Nasal Cannula 5.00 I & O 11/16/22 07:00 Intake Total 1250 ml Output Total 1875 ml Balance -625 ml Height & Weight Height: 5'3.00" Weight: 209lbs. 8.0oz. 95.916752qo; 36.44 BMI Method:Stated General Appearance: Anxious, Mild Distress Respiratory: Lungs Clear, No Accessory Muscle Use, Other (4 lpm NC) Cardiovascular: No Edema, No Gallop, No JVD, No Murmur, Irregularly Irregular, Tachycardia Gastrointestinal: normal bowel sounds, non tender Extremity: Normal Inspection, Non Tender, No Pedal Edema Neurologic/Psychiatric: Alert, Oriented x3 Skin: Normal Color, Warm/Dry Results Lab Laboratory Tests 11/15/22 12:08 11/16/22 04:05 Assessment/Plan Assessment/Plan PAF, now in NSR, continue on po Cardizem, warfarin, can go out of MICU Critical Care: Critically Ill Patient Time spent with patient (mins): 25 GARETH CABALLERO MD Nov 16, 2022 08:30
--- NOTE | 2022-11-16 08:38 | Progress Note - Cardiology ---
Cardiology SOAP Progress Note Subjective: Sitting up in bed States she feels much better today Objective: I&O/Vital Signs 11/15/22 11/15/22 11/15/22 11/15/22 21:00 21:42 21:52 22:00 Pulse 86 90 90 86 Resp 14 B/P (MAP) 120/68 (86) 106/72 (85) Pulse Ox 97 98 98 97 O2 Delivery Nasal Cannula NIV CPAP NIV CPAP O2 Flow Rate 4.00 30.00 30.00 30.00 11/15/22 11/15/22 11/16/22 11/16/22 23:00 23:59 00:00 01:00 Pulse 93 80 81 Resp 18 B/P (MAP) 135/74 (86) 131/72 (91) 123/81 (92) Pulse Ox 94 96 97 O2 Delivery NIV CPAP NIV Bilevel NIV CPAP NIV CPAP O2 Flow Rate 30.00 30.00 30.00 FiO2 30 11/16/22 11/16/22 11/16/22 11/16/22 01:00 02:00 02:25 03:00 Pulse 80 82 92 88 Resp 20 18 B/P (MAP) 127/77 (92) 95/72 (83) Pulse Ox 97 100 97 O2 Delivery NIV CPAP NIV CPAP O2 Flow Rate 30.00 30.00 30.00 11/16/22 11/16/22 11/16/22 11/16/22 04:00 04:11 05:00 06:00 Pulse 87 87 81 B/P (MAP) 96/58 (71) 104/59 (83) 112/72 (89) Pulse Ox 96 95 97 O2 Delivery NIV CPAP NIV Bilevel NIV CPAP NIV CPAP O2 Flow Rate 30.00 30.00 30.00 FiO2 30 11/16/22 11/16/22 07:36 07:56 Temp 36.4 Pulse 88 B/P (MAP) 11/16/22 00:00 Intake Total 1250 ml Output Total 1625 ml Balance -375 ml Weight (Pounds): 209 Weight (Ounces): 8.0 Weight (Calculated Kilograms): 95.318291 Constitutional: AAO x 3, well-developed, well-nourished Respiratory: No accessory muscle use, No respiratory distress; chest expansion is symmetric, chest is bilaterally symmetric, other (good air entry) Cardiovascular: No JVD; tachycardia Gastrointestional: No tender; soft, round, audible bowel sounds Extremities: no lower extremity edema bilateral Neurologic/Psychiatric: oriented x 3, other (moves all extremities) Skin: No rash on exposed areas, No ulcerations on exposed areas Results/Procedures: Labs Laboratory Tests 11/15/22 12:08: White Blood Count 8.7, Red Blood Count 4.86, Hemoglobin 13.1, Hematocrit 41, Mean Corpuscular Volume 84, Mean Corpuscular Hemoglobin 27, Mean Corpuscular Hemoglobin Concent 32, Red Cell Distribution Width 15.5H, Platelet Count 284, Mean Platelet Volume 11.1, Immature Granulocyte % (Auto) 0, Neutrophils (%) (Auto) 58, Lymphocytes (%) (Auto) 27, Monocytes (%) (Auto) 10, Eosinophils (%) (Auto) 4, Basophils (%) (Auto) 1, Neutrophils # (Auto) 5.0, Lymphocytes # (Auto) 2.4, Monocytes # (Auto) 0.9, Eosinophils # (Auto) 0.3, Basophils # (Auto) 0.1, Immature Granulocyte # (Auto) 0.0, Prothrombin Time 24.4H, INR Comment 2.2H, Sodium Level 143, Potassium Level 3.4L, Chloride Level 101, Carbon Dioxide Level 30, Anion Gap 12, Blood Urea Nitrogen 22H, Creatinine 1.19, Estimat Glomerular Filtration Rate 47, BUN/Creatinine Ratio 18, Glucose Level 99, Calcium Level 9.7, Corrected Calcium 9.9, Phosphorus Level 2.9, Magnesium Level 1.4L, Total Bilirubin 0.6, Aspartate Amino Transf (AST/SGOT) 13, Alanine Aminotransferase (ALT/SGPT) 11, Alkaline Phosphatase 86, Total Protein 8.0, Albumin 3.7 11/16/22 04:05: White Blood Count 7.9, Red Blood Count 4.51, Hemoglobin 12.0, Hematocrit 38, Mean Corpuscular Volume 84, Mean Corpuscular Hemoglobin 27, Mean Corpuscular Hemoglobin Concent 32, Red Cell Distribution Width 15.7H, Platelet Count 260, Mean Platelet Volume 11.5, Immature Granulocyte % (Auto) 0, Neutrophils (%) ( Auto) 50, Lymphocytes (%) (Auto) 30, Monocytes (%) (Auto) 12, Eosinophils (%) (Auto) 6, Basophils (%) (Auto) 1, Neutrophils # (Auto) 4.0, Lymphocytes # (Auto) 2.4, Monocytes # (Auto) 1.0, Eosinophils # (Auto) 0.5H, Basophils # (Auto) 0.1, Immature Granulocyte # (Auto) 0.0, Sodium Level 140, Potassium Level 3.3L, Chloride Level 100, Carbon Dioxide Level 27, Anion Gap 13, Blood Urea Nitrogen 26H, Creatinine 1.33H, Estimat Glomerular Filtration Rate 41, BUN/Creatinine Ratio 20, Glucose Level 87, Calcium Level 9.6, Corrected Calcium 10.1, Phosphorus Level 4.2, Magnesium Level 1.8, Total Bilirubin 0.6, Aspartate Amino Transf (AST/SGOT) 16, Alanine Aminotransferase (ALT/SGPT) 8, Alkaline Phosphatase 74, Total Protein 7.4, Albumin 3.4 Laboratory Tests 11/15/22 12:08 11/16/22 04:05 A/P: Assessment: - H/O PAF with RVR; currently sinus with PACs (including blocked PACs) and a few PVCs - echo on 08/07/22: LVEF 55-60%, mild conc LVH, AoV sclerosis w/o stenosis, PASP 50-55 mmHg - warfarin for stroke prophylaxis - managed as out pt by Dr. Davalos (reports intolerance to NOAC) Hypertension - controlled Obesity with suspected DIANE Mod pulm htn - may be secondary to untreated DIANE Plan: H/O PAF - currently sinus rhythm - continue calcium channel yuan and BB Monitor lab Replace electrolytes Change IV Lasix to oral NOHEMI MON Nov 16, 2022 08:38
[2022-11-16] MEDS: POTASSIUM CHLORIDE 10 MEQ TABLET PO SCH (08:41)
[2022-11-16] MEDS ORDERED: FUROSEMIDE 40 MG TABLET PO SCH (09:00)
[2022-11-16] MEDS ORDERED: dilTIAZem ER 300 MG CAPSULE PO SCH (09:00)
[2022-11-16] MEDS: dilTIAZem DRIP 125 MG/125 ML DRIP IV SCH (10:58)
[2022-11-16] MEDS ORDERED: FURO40TA4 PO (16:11)
[2022-11-16] MEDS ORDERED: MTP25TSR PO (16:11)
--- NOTE | 2022-11-16 17:17 | Physician Query-Final Dx ---
ROYA GIRALDO 11/16/22 1717: Final Diagnosis Give Final Diagnosis Please give Final Diagnosis The medical record reflects the following clinical evidence: Clinical Indicators: She presented to the office feeling little lightheaded and shortness of breath walking in from the exam room her initial saturation was 50% on room air increased to 84% within a couple of minutes with resolution of tachypnea. RR 18 on admission has been as high as 20, O2 sat on admission was 97% has been as low as 78-90% since admission this was on 4 L (P/R=[id number]), VARNER Risk Factor(s): At. fib with RVR due to HF, Documentation of Home 02 use at 2L with activity Treatment: Supplemental 02 up to 5L for more than 24 hours, Respiratory monitori ng, Acute respiratory failure with hypoxia, present on admission Other explanation of clinical findings Unable to determine (no explanation for clinical findings) Please clarify and document your clinical opinion in the progress notes and discharge summary including the definitive and/or presumptive diagnosis, (suspected or probable), related to the above clinical findings. Please include clinical findings supporting your diagnosis. Roya Giraldo RN, MSN [phone] MUNA ALMEIDA MD 11/16/222038: Final Diagnosis Give Final Diagnosis Acute respiratory failure with hypoxia, present on admission, resolved ROYA GIRALDO Nov 16, 2022 17:17 MUNA ALMEIDA MD Nov 16, 2022 20:39
--- NOTE | 2022-11-16 17:35 | Progress Note - Cardiology ---
Cardiology SOAP Progress Note Subjective: Shortness of breath better No cp or palp or syncope Gen weakness and malaise better No n/v/d No focal weakness Wishes to go home Objective: I&O/Vital Signs 11/16/22 11/16/22 11/16/22 11/16/22 06:00 07:00 07:36 07:56 Temp 36.4 Pulse 81 90 88 B/P (MAP) 112/72 (89) 116/78 (91) Pulse Ox 97 91 O2 Delivery NIV CPAP Nasal Cannula O2 Flow Rate 30.00 4.00 11/16/22 11/16/22 11/16/22 11/16/22 08:00 08:00 09:00 10:00 Pulse 84 81 80 B/P (MAP) 117/55 (75) 113/63 (80) 118/68 (85) Pulse Ox 100 100 98 O2 Delivery Nasal Cannula Nasal Cannula Nasal Cannula Nasal Cannula O2 Flow Rate 4.00 4.00 4.00 4.00 11/16/22 11/16/22 11/16/22 11/16/22 11:00 12:00 12:00 12:16 Temp 36.2 Pulse 88 72 B/P (MAP) 101/59 (73) 118/78 (91) Pulse Ox 99 99 O2 Delivery Nasal Cannula Nasal Cannula Nasal Cannula O2 Flow Rate 4.00 4.00 4.00 11/16/22 11/16/22 11/16/22 11/16/22 13:00 14:00 15:00 16:00 Pulse 57 57 61 60 B/P (MAP) 98/80 (86) 118/82 (94) 108/55 (72) 120/62 (81) Pulse Ox 95 93 95 90 O2 Delivery Nasal Cannula Nasal Cannula Nasal Cannula Nasal Cannula O2 Flow Rate 4.00 4.00 4.00 4.00 11/16/22 11/16/22 11/16/22 16:00 16:05 16:40 Temp 36.2 B/P (MAP) O2 Delivery Nasal Cannula O2 Flow Rate 2.00 11/16/22 00:00 Intake Total 1250 ml Output Total 1625 ml Balance -375 ml Weight (Pounds): 209 Weight (Ounces): 8.0 Weight (Calculated Kilograms): 95.264922 Constitutional: AAO x 3, well-developed, well-nourished Respiratory: No accessory muscle use, No respiratory distress; chest expansion is symmetric, chest is bilaterally symmetric, other (good air entry) Cardiovascular: No JVD; tachycardia Gastrointestional: No tender; soft, round, audible bowel sounds Extremities: no lower extremity edema bilateral Neurologic/Psychiatric: oriented x 3, other (moves all extremities) Skin: No rash on exposed areas, No ulcerations on exposed areas Results/Procedures: Labs Laboratory Tests 11/16/22 04:05: White Blood Count 7.9, Red Blood Count 4.51, Hemoglobin 12.0, Hematocrit 38, Mean Corpuscular Volume 84, Mean Corpuscular Hemoglobin 27, Mean Corpuscular Hemoglobin Concent 32, Red Cell Distribution Width 15.7H, Platelet Count 260, Mean Platelet Volume 11.5, Immature Granulocyte % (Auto) 0, Neutrophils (%) (Auto) 50, Lymphocytes (%) (Auto) 30, Monocytes (%) (Auto) 12, Eosinophils (%) (Auto) 6, Basophils (%) (Auto) 1, Neutrophils # (Auto) 4.0, Lymphocytes # (Auto) 2.4, Monocytes # (Auto) 1.0, Eosinophils # (Auto) 0.5H, Basophils # (Auto) 0.1, Immature Granulocyte # (Auto) 0.0, Sodium Level 140, Potassium Level 3.3L, Chloride Level 100, Carbon Dioxide Level 27, Anion Gap 13, Blood Urea Nitrogen 26H, Creatinine 1.33H, Estimat Glomerular Filtration Rate 41, BUN/Creatinine Ratio 20, Glucose Level 87, Calcium Level 9.6, Corrected Calcium 10.1, Phosphorus Level 4.2, Magnesium Level 1.8, Total Bilirubin 0.6, Aspartate Amino Transf (AST/SGOT) 16, Alanine Aminotransferase (ALT/SGPT) 8, Alkaline Phosphata se 74, Total Protein 7.4, Albumin 3.4 Laboratory Tests 11/15/22 12:08 11/16/22 04:05 A/P: Assessment: - H/O PAF with RVR; currently sinus with PACs (including blocked PACs) and a few PVCs - echo on 08/07/22: LVEF 55-60%, mild conc LVH, AoV sclerosis w/o stenosis, PASP 50-55 mmHg - warfarin for stroke prophylaxis - managed as out pt by Dr. Davalos (reports intolerance to NOAC) Hypertension - controlled Obesity with suspected DIANE Mod pulm htn - may be secondary to untreated DIANE Plan: H/O PAF - currently sinus rhythm - continue calcium channel yuan and BB Monitor lab Replace electrolytes Change IV Lasix to oral Ok to d/c in the late afternoon / evening AWA GOMEZ MD FACP [facility] Nov 16, 2022 17:35
--- NOTE | 2022-11-16 20:31 | Discharge Summary ---
Discharge Summary Hospital Course Problems/Dx: (1) Atrial fibrillation with rapid ventricular response Status: Acute (2) Acute on chronic heart failure with preserved ejection fraction (HFpEF) Status: Acute (3) Pulmonary edema Status: Acute Qualifiers: Qualified Codes: J81.0 - Acute pulmonary edema Hospital Course Date of Admission: Nov 15, 2022 at 10:40 Admission Diagnosis : AFib with RVR Family Physician/Provider: Sharon Davalos MD Date of Discharge: 11/16/22 Discharge Diagnosis: AFib with RVR Hospital Course: Yohana Elena is a 77 year old female who was admitted with AFib with RVR. Cardiology was consulted and assisted with her care. She was treated with IV Cardizem. she converted back to normal sinus rhythm with controlled rates. She was continued on her oral Cardizem. She was started on Metoprolol. She was also given IV Lasix for pulmonary edema which improved. She was started on oral Lasix and her HCTZ was stopped. She should have a repeat BMP in about a week. She should follow up with her PCP, Dr. Davalos, and cardiology, Dr. Macias, as scheduled. She was discharged home in stable condition. Labs and Pending Lab Test: Laboratory Tests 11/16/22 04:05: White Blood Count 7.9, Red Blood Count 4.51, Hemoglobin 12.0, Hematocrit 38, Mean Corpuscular Volume 84, Mean Corpuscular Hemoglobin 27, Mean Corpuscular Hemoglobin Concent 32, Red Cell Distribution Width 15.7H, Platelet Count 260, Mean Platelet Volume 11.5, Immature Granulocyte % (Auto) 0, Neutrophils (%) (Auto) 50, Lymphocytes (%) (Auto) 30, Monocytes (%) (Auto) 12, Eosinophils (%) (Auto) 6, Basophils (%) (Auto) 1, Neutrophils # (Auto) 4.0, Lymphocytes # (Auto) 2.4, Monocytes # (Auto) 1.0, Eosinophils # (Auto) 0.5H, Basophils # (Auto) 0.1, Immature Granulocyte # (Auto) 0.0, Sodium Level 140, Potassium Level 3.3L, Chloride Level 100, Carbon Dioxide Level 27, Anion Gap 13, Blood Urea Nitrogen 26H, Creatinine 1.33H, Estimat Glomerular Filtration Rate 41, BUN/Creatinine Ratio 20, Glucose Level 87, Calcium Level 9.6, Corrected Calcium 10.1, Phosph orus Level 4.2, Magnesium Level 1.8, Total Bilirubin 0.6, Aspartate Amino Transf (AST/SGOT) 16, Alanine Aminotransferase (ALT/SGPT) 8, Alkaline Phosphatase 74, Total Protein 7.4, Albumin 3.4 Home Meds Active Furosemide 40 Mg Tablet 40 Mg PO DAILY 30 Days Metoprolol Succinate 25 Mg Tab.er.24h 25 Mg PO DAILY 30 Days Reported Diltiazem ER (Diltiazem HCl) 300 Mg Capsule.er 300 Mg PO DAILY Warfarin Sodium 1 Mg Tablet 1 Mg PO HS TAKES 1MG +5MG TOGETHER TO EQUAL 6MG Pentoxifylline 400 Mg Tablet.er 400 Mg PO BID Symbicort 80-4.5 Mcg Inhaler (Budesonide/Formoterol Fumarate) 80 Mcg-4.5 Mcg/Actuation Hfa.aer.ad 2 Puff INH BID PRN Warfarin Sodium 5 Mg Tablet 5 Mg PO HS TAKES 1MG +5MG TOGETHER TO EQUAL 6MG Zyrtec-D Tablet (Cetirizine HCl/Pseudoephedrine) 5 Mg-120 Mg Tab.er.12h 1 Ea PO BID PRN Tylenol Extra Strength (Acetaminophen) 500 Mg Tablet 1,000 Mg PO Q6H PRN TAKES 2 (500MG) TABS Allopurinol 100 Mg Tablet 100 Mg PO DAILY Assessment/Pt Instructions see instructions Discharge Planning: <30 minutes discharge planning Discharge Instructions Discharge Diet: Low Sodium Diet Activity as Tolerated: Yes Consultations Cardiology Discharge Physical Examination Vital Signs Vital Signs Date Time Temp Pulse Resp B/P (MAP) Pulse Ox O2 Delivery O2 Flow Rate FiO2 11/16/22 16:40 11/16/22 16:05 36.2 11/16/22 16:00 Nasal Cannula 2.00 11/16/22 16:00 60 90 11/16/22 04:11 30 11/16/22 02:25 18 General Appearance: No Apparent Distress, WD/WN Respiratory: Lungs Clear, No Respiratory Distress Cardiovascular: Regular Rate, Rhythm, No Murmur Gastrointestinal: Normal Bowel Sounds, Soft Extremity: Normal Inspection, Pedal Edema Neurologic/Psychiatric: Alert, Normal Mood/Affect Allergies: Coded Allergies: aspirin (Verified Adverse Reaction, Unknown, 10/24/17) States won't take it as is on warfarin Copy Copies To 1: SHARON DAVALOS MD Discharge Summary Date of Admission Nov 15, 2022 at 10:40 Date of Discharge Nov 16, 2022 at 16:40 Discharge Date: Nov 16, 2022 Discharge Time: 16:40 Admission Diagnosis AFib with RVR Consults/Procedures Consulations Cardiology Discharge Diagnosis (1) Atrial fibrillation with rapid ventricular response Status: Acute (2) Acute on chronic heart failure with preserved ejection fraction (HFpEF) Status: Acute (3) Pulmonary edema Status: Acute Qualifiers: Qualified Codes: J81.0 - Acute pulmonary edema MUNA ALMEIDA MD Nov 16, 2022 20:29
== END 2022-11-16 16:40 | disposition home or self-care (01) | DRG 308 ==
LOC: ICU 10:40
PROVIDERS: ADMIT Internal Medicine; ATTEND Internal Medicine
PROC: 5A09357 Assistance with Respiratory Ventilation, Less than 24 Consecutive Hours, Continuous Positive Airway Pressure (ICD-10-PCS; principal; 2022-11-15)
DX: I48.0 Paroxysmal atrial fibrillation (principal); I50.33 Acute on chronic diastolic (congestive) heart failure; J81.0 Acute pulmonary edema; J96.01 Acute respiratory failure with hypoxia; I11.0 Hypertensive heart disease with heart failure; G47.33 Obstructive sleep apnea (adult) (pediatric); E66.9 Obesity, unspecified; I27.20 Pulmonary hypertension, unspecified; Z79.01 Long term (current) use of anticoagulants; Z68.36 Body mass index [BMI] 36.0-36.9, adult; Z86.711 Personal history of pulmonary embolism; Z86.718 Personal history of other venous thrombosis and embolism
CPT/HCPCS: 36415; 71045; 80053; 83735; 84100; 85025; 85610; 93005; 94660